=== PATIENT | female | born 1950 | race Caucasian/White ===

== ENCOUNTER → 2019-11-21 13:11 | Outpatient (CLI) | payer OTHER, SELFPAY ==
--- NOTE | 2019-11-21 | DI.MRI.S_ITS ---
PROCEDURE: MR LUMBAR SPINE WO CON INDICATIONS: Lumbago with sciatica, left side TECHNIQUE: Noncontrast sagittal T1 spin echo and T2 fast echo, sagittal STIR, axial T1 and T2 fast spin echo through the lumbar spine. In cases with scoliosis, additional coronal T2 fast spin echo may be performed. COMPARISON: [facility], MR, L-SPINE WITHOUT CONTRAST, 01/26/2016, 13:51. FINDINGS: Image quality: Excellent. Alignment and Curvature: There is normal bony alignment. Bone Marrow: Reactive endplate changes noted adjacent to the L2-L3, L3-L4, L4-L5 and L5-S1 discs. Small benign, intraosseous hemangioma noted in the S1 vertebral body. No acute vertebral body compression fractures. Spinal Cord: Conus medullaris terminates at the L1 level. Visualized cord demonstrates normal signal and size. Paraspinous Soft Tissues: No paravertebral masses. L1-L2: Loss of disc signal. Minimal, diffuse disc bulge. No central stenosis. No neural foraminal narrowing. No neural compression. L2-L3: Loss of disc signal and slight loss of disc height. Mild, diffuse disc bulge. No central stenosis. Mild bilateral neural foraminal narrowing. No neural compression. L3-L4: Loss of disc signal. Mild, diffuse disc bulge. Mild bilateral facet hypertrophy. Mild narrowing of the central canal. Mild bilateral neural foraminal narrowing. No neural compression. L4-L5: Loss of disc signal and height. Mild to moderate diffuse disc bulge. Moderate bilateral facet hypertrophy. Moderate narrowing of the central canal. Moderate bilateral neural foraminal narrowing. No neural compression. L5-S1: Loss of disc signal. Mild, diffuse disc bulge. Mild bilateral facet hypertrophy. No central stenosis. Moderate right and severe left neural foraminal narrowing with compression of the exiting left L5 nerve root. IMPRESSION: 1. Multilevel degenerative disc disease. 2. Multilevel facet arthropathy. 3. No significant central canal narrowing. 4. Severe left L5-S1 neural foraminal narrowing with compression of the exiting left L5 nerve root. Please correlate with clinical data. Dictated by: Monique Burgos MD, PhD on 11/21/2019 at 17:30 Approved by: Monique Burgos MD, PhD on 11/21/2019 at 17:53
== END ==
PROVIDERS: PCP Physician Assistant; Referring Provider Orthopaedic Surgery Orthopaedic Surgery of the Spine; Visit Provider Orthopaedic Surgery Orthopaedic Surgery of the Spine
DX: M51.16 Intervertebral disc disorders with radiculopathy, lumbar region (principal); M51.17 Intervertebral disc disorders with radiculopathy, lumbosacral region; M47.26 Other spondylosis with radiculopathy, lumbar region; M47.27 Other spondylosis with radiculopathy, lumbosacral region; M48.061 Spinal stenosis, lumbar region without neurogenic claudication; M48.07 Spinal stenosis, lumbosacral region
CPT/HCPCS: 72148

== ENCOUNTER → 2019-12-29 15:04 | Outpatient (CLI) | payer OTHER, SELFPAY ==
[2019-12-29 18:03] LABS: Thyroid Stimulating Hormone 2.38 uIU/mL (0.47-4.68)
[2019-12-30 09:14] LABS: Immunoglobulin A 313 mg/dL (87-352)
[2019-12-30 12:08] LABS: SARS CoV19 IgG Negative (Negative)
[2019-12-30 14:39] LABS: SARS-CoV19- IgM Negative (Negative)
[2019-12-30 19:38] LABS: Tissue Transglutaminase IgA <2 U/mL (0-3); Tissue Transglutaminase IgG <2 U/mL (0-5)
== END ==
PROVIDERS: PCP Physician Assistant; Referring Provider Student in an Organized Health Care Education/Training Program; Visit Provider Student in an Organized Health Care Education/Training Program
DX: R19.00 Intra-abdominal and pelvic swelling, mass and lump, unspecified site (principal); R05 Cough
CPT/HCPCS: 36415; 82784; 83516; 84443; 86769

== ENCOUNTER → 2020-02-20 13:18 | Outpatient (CLI) | payer OTHER, SELFPAY ==
[2020-02-20 14:03] LABS: COVID19 -Nasal RAPID Negative (Negative)
== END ==
PROVIDERS: PCP Physician Assistant; Visit Provider Physician Assistant
DX: Z11.59 Encounter for screening for other viral diseases (principal)
CPT/HCPCS: 87635

== ENCOUNTER 2020-02-22 13:47 | Day surgery (SDC) | payer OTHER, SELFPAY ==
--- NOTE | 2020-02-22 | PATH_ITS ---
[facility] Accession Number: [id number] . 01 Material submitted: . colon - RANDOM COLON BIOPSIES . 01 Clinical history: . SDC RULE OUT MICROSCOPIC COLITIS . 02 Diagnosis: Random Colon, Biopsies: Collagenous colitis. MRV 02/28/2020 1506 Local . 02 Electronically signed: . Braydon Cee MD, PhD, Pathologist NPI- [id number] . 01 Gross description: . RANDOM COLON BIOPSIES: Received in formalin are multiple fragment(s) of saavedra, soft tissue measuring 0.6 x 0.6 x 0.2 cm in aggregate submitted entirely in 1 cassette(s) /QBJ 02/23/2020 0438 Local . 02 Microscopic: . A trichrome stain highlights patchy irregular thickening of the subepithelial collagen plate, with few entrapped inflammatory cells and capillaries. A control stain shows appropriate reactivity. . 02 Pathologist provided ICD-10: R19.7, K52.89 . 02 CPT . 985412, [id number] Performed at: 01 [facility] [address], [place], [place] [id number] MD Martell Young MD Phone: [phone] [facility]formed at: [facility] [address] [place], [place] [id number] MD Ella Boyd MD Phone: [phone]
--- NOTE | 2020-02-22 13:54 | PM.HP.1 ---
History of Present Illness History of Present Illness Date Patient Seen: 02/22/20 Time Patient Seen: 13:54 Chief complaint: SDC Narrative: Patient is a 61-year-old female who presented for colonoscopy. She was evaluated on December 29, 2019 for diarrhea and fecal incontinence. Since that time she has continued to have persistent diarrhea. Her last colonoscopy was September 11, 2015 which was unremarkable, 10 year recheck was recommended at that time. Meds Home Medications and Allergies Home Medications Medication Instructions Recorded Confirmed Type codeine sulfate 30 mg tablet 30 mg PO Q4-6H PRN #90 tab MDD 4 11/16/17 Rx codeine sulfate 30 mg tablet 30 mg PO Q4-6H PRN #90 tab 01/07/18 Rx Allergies Allergy/AdvReac Type Severity Reaction Status Date / Time No Known Drug Allergies Allergy Verified 02/22/20 14:15 Review of Systems Review of Systems ROS: Yes All systems reviewed with the patient and are negative except as otherwise documented Exam Const General: cooperative, healthy appearing, comfortable, well developed, well groomed and No acute distress Nutritional Appearance: obese Orientation: alert, awake and oriented x3 HENMT Head: normocephalic and atraumatic Resp Effort & Inspection: normal respiratory effort and able to speak in complete sentences Auscultation: clear to auscultation bilaterally Cardio Rate: regular rate Rhythm: regular rhythm Heart Sounds: S1 normal and S2 normal GI Palpation: soft Auscultation: normal bowel sounds Assessment & Plan Assessment & Plan narrative: 1. Chronic diarrhea Colonoscopy today, further recommendations to follow
[2020-02-22] MEDS: SODIUM CHLORIDE 0.9% 1,000 ML 70 ML IV (14:14)
[2020-02-22 14:15] VITALS: BP 169/91; PULSE 67; RESP 16; TEMP 36.2; O2SAT 97; BMI 36.6
--- NOTE | 2020-02-22 14:54 | PM.OP.ENDO ---
Operative Date/Time/Diagnoses Date of procedure: 02/22/20 Time of procedure: 14:34 Procedure Notes Procedure in detail: Surgeon: Tracey Varghese DO Procedure: Colonoscopy with biopsy Preoperative diagnosis: 1. Chronic diarrhea 2. Fecal incontinence Postoperative diagnosis: 1. Normal appearing colonic mucosa, biopsied to rule out microscopic colitis 2. Sigmoid and descending colon diverticulosis 3. Grade 1 internal hemorrhoids Medications: Monitored anesthesia care Preanesthesia Assessment An H and P was performed/updated and the Px?s ASA class is 2. The procedure was discussed in detail with the patient. The potential risks and complications including infection, bleeding, missed lesions, perforation, need for surgery in case of perforation, prolonged hospital stay, and were explained. A brief question and answer period was allotted and once all questions were answered, informed consent was obtained. The patient was brought back to the procedure room and placed on standard monitoring. The patient?s vital signs were monitored continuously throughout the entire procedure. Prior to starting, a timeout was performed to confirm the patient?s identity, allergies, medications, and procedure. Procedure in detail The patient was placed in left lateral decubitus position. Prior to sedation patient underwent a rectal exam while awake due to her fecal incontinence. She was noted to have a weak squeeze and pelvic floor dysfunction. The digital rectal examination did not reveal any palpable lesions. After adequate sedation was achieved, the tip of the colonoscope was placed in the anal canal and advanced with some difficulty, manual pressure was applied to advance scope all the way to the cecum which was identified by the appendiceal orifice and the ileocecal valve. Careful examination of all mondragon of the colon was performed with irrigation of any residual stool. Second pass of the ascending colon was completed. Colon mucosa appeared unremarkable, random colon biopsies were taken to rule out microscopic colitis. Unfortunately due to a tortuous colon we were unable to intubate the terminal ileum. Sigmoid and descending colon diverticulosis were noted. Grade 1 internal hemorrhoids were noted on retroflexion. The patient tolerated the procedure well and will be brought back to the recovery area to be discharged once criteria are met. The prep was judged to be good/excellent and adequate to identify polyps less than 5 mm. The withdrawal time was 11min. The total physician intraservice time was 19min. Complications There were no complications and estimated blood loss was minimal. Recommendations: Resume previous diet Continue outPx medications Follow up pathology results Repeat colonoscopy in 10 years for screening Consider pelvic floor physical therapy Office follow up to be scheduled An emergency contact number was given to the patient for any complications related to the procedure
[2020-02-22 14:58] VITALS: BP 123/69; PULSE 64; RESP 13; TEMP 36.4; O2SAT 96
[2020-02-22 15:02] VITALS: BP 109/53; PULSE 71; RESP 14; O2SAT 97
[2020-02-22 15:06] VITALS: BP 134/64; PULSE 63; RESP 18; O2SAT 96
[2020-02-22 15:12] VITALS: BP 130/62; PULSE 61; RESP 24; O2SAT 95
[2020-02-22 15:20] VITALS: BP 139/61; PULSE 60; RESP 16; TEMP 36.2; O2SAT 98
== END 2020-02-22 15:22 | disposition home or self-care (01) ==
PROVIDERS: PCP Physician Assistant; Referring Provider Student in an Organized Health Care Education/Training Program; Visit Provider Student in an Organized Health Care Education/Training Program
PROC: 0DJD8ZZ Inspection of Lower Intestinal Tract, Via Natural or Artificial Opening Endoscopic (ICD-10-PCS; CPT 45378; principal; 2020-02-22 15:00)
DX: K52.831 Collagenous colitis (principal); R15.9 Full incontinence of feces; J44.9 Chronic obstructive pulmonary disease, unspecified; G47.33 Obstructive sleep apnea (adult) (pediatric); I10 Essential (primary) hypertension; K64.0 First degree hemorrhoids; K57.30 Diverticulosis of large intestine without perforation or abscess without bleeding
CPT/HCPCS: 45380

== ENCOUNTER → 2020-05-08 15:06 | Outpatient (CLI) | payer OTHER, SELFPAY ==
[2020-05-08 17:39] LABS: Appearance Urine UA CLEAR; Bilirubin Urine UA NEGATIVE (NEGATIVE); Color Urine UA YELLOW; Glucose Urine UA NEGATIVE (Negative); Ketones Urine UA NEGATIVE (NEGATIVE); Leukocyte Esterase Urine UA NEGATIVE (NEGATIVE); Nitrite Urine UA NEGATIVE (Negative); Occult Blood Urine UA 2+ (Negative); Protein Urine UA NEGATIVE (Negative); Specific Gravity Urine UA 1.015 (1.000-1.035)
[2020-05-08 17:40] LABS: Add Manual Diff / Slide Review NO; Basophils Absolute Auto 0 /uL (0-100); Basophils Percent Auto 0.3 % (0-2); Eosinophils Absolute Auto 100 /uL (0-450); Eosinophils Percent Auto 0.8 % (2-4); Hematocrit 38.2 % (36-46); Hemoglobin 13.5 g/dL (12.0-16.0); Lymphocytes Absolute Auto 1300 /uL (1100-4500); Lymphocytes Percent Auto 17.1 % (25-40); Mean Corpuscular HGB Conc 35.3 % (30-36); Mean Corpuscular Hemoglobin 33.4 PG (26-34); Mean Corpuscular Volume 94.5 fL (80-100); Monocytes Absolute Auto 400 /uL (0-900); Monocytes Percent Auto 4.9 % (3-14); Neutrophils Absolute Auto 5900 /uL (1500-7000); Neutrophils Percent Auto 76.9 % (50-75); Platelet Count 250 X10^3/uL (150-400); Red Blood Cell Count 4.04 X10^6/uL (4.0-5.2); Red Cell Distribution Width 13.4 % (11.6-14.8); White Blood Cell Count 7.6 X10^3/uL (4.5-11.0)
[2020-05-08 17:59] LABS: pH Urine UA 6.5 (4.5-8.0)
[2020-05-08 18:02] LABS: Bacteria Urine Occasional (0-1); Culture Indicated Urine Cult Not Indicated; RBC Urine 1-5/HPF (0-5/HPF); Squamous Epithelial Cell Urine 1-5 /HPF (0-5/HPF); Transitional Epi Cells Urine 1-5/HPF (0-5/HPF); WBC Urine 1-5/HPF (0-5/HPF)
[2020-05-08 18:17] LABS: Blood Urea Nitrogen 11 mg/dL (7-17); Calcium 9.5 mg/dL (8.4-10.2); Carbon Dioxide 35 mmol/L (22-32); Chloride 92 mmol/L (98-107); Estimated Glomerular Filt Rate > 60.0 mL/min (>60); Glucose 94 mg/dL (80-110); HEMOLYSIS < 15 (0-50); Potassium 3.9 mmol/L (3.4-5.1); Sodium 132 mmol/L (137-145)
== END ==
PROVIDERS: PCP Physician Assistant; Referring Provider Orthopaedic Surgery Orthopaedic Surgery of the Spine; Visit Provider Orthopaedic Surgery Orthopaedic Surgery of the Spine
DX: Z01.818 Encounter for other preprocedural examination (principal); Z01.812 Encounter for preprocedural laboratory examination; N39.0 Urinary tract infection, site not specified
CPT/HCPCS: 36415; 80048; 81001; 85025; 93005; 93010

== ENCOUNTER → 2020-06-04 13:16 | Outpatient (CLI) | payer OTHER, SELFPAY ==
[2020-06-04 16:50] LABS: COVID19 -Nasal RAPID Negative (Negative)
== END ==
PROVIDERS: PCP Physician Assistant; Visit Provider Physician Assistant
DX: Z01.812 Encounter for preprocedural laboratory examination (principal); Z20.822 Contact with and (suspected) exposure to COVID-19
CPT/HCPCS: 87635

== ENCOUNTER 2020-06-07 12:00 | Observation (INO) | payer OTHER, SELFPAY ==
[2020-06-06] VITALS (26 sets, daily range): BP systolic 120–171; BP diastolic 43–90; PULSE 60–84; RESP 8–18; TEMP 36.3–36.8; O2SAT 83–100; BMI 37.1
--- NOTE | 2020-06-06 | DI.RAD.S_ITS ---
PROCEDURE: XR LUMBAR SPINE 2-3V INDICATIONS: L5-S1 TLIF TECHNIQUE: 2 views of the lumbar spine were acquired. COMPARISON: None. FINDINGS: Bones: Immediate postoperative evaluation by frontal and lateral views. There has been establishment of normal alignment by placement of transverse pedicle screws and vertical fixation rods crossing L5-S1, with an interbody cage disc prosthesis at the L5-S1 disc space. Soft tissues: Overlying bowel gas pattern is normal. No suspicious soft tissue calcifications. IMPRESSION: Normal alignment established by L5-S1 posterior fusion with interbody disc cage prosthesis. Dictated by: Isiah Dailey M.D. on 06/06/2020 at 14:48 Approved by: Isiah Dailey M.D. on 06/06/2020 at 14:58
[2020-06-06] MEDS: LACTATED RINGERS 1,000 ML 100 ML IV ×2 (11:08→14:13)
--- NOTE | 2020-06-06 11:57 | PM.PREOP ---
Pre-operative Note COVID-19 COVID-19 status: Negative Result date/Date tested (Pos, Neg/Pending): 06/04/20 Interval Note History & Physical reviewed/Exam performed by Physician: Yes Changes to H&P: No
[2020-06-06] MEDS: CEFAZOLIN 2 GM/100 ML FROZ.PIGGY IV ×2 (12:45→20:39)
--- NOTE | 2020-06-06 13:19 | SUR.OPER ---
Prone on spine table, head in foam head support, padded chest and pelvic supports, gel pad at knees, lower legs supported by pillows; nipples, genitalia and toes free of pressure, arms secured on foam padded arm boards at <90 degrees abduction. Tape over blanket at thigh secured to table. Gel pads bilaterally against abdomen and outer thighs.
[2020-06-06] MEDS: BUPIVACAINE LIPOSOME 266 MG/20 ML VIAL INJ (13:26)
[2020-06-06] MEDS: BUPIVACAINE 0.5% W/ EPI (PF) 30 ML VIAL INJ (13:26)
[2020-06-06] MEDS: ACETAMINOPHEN IV 1,000 MG/100 ML VIAL 400 MG IV (13:40)
--- NOTE | 2020-06-06 15:34 | P.OP_ITS ---
Operative Date/Time/Diagnoses Date of procedure: 06/06/20 Time of procedure: 12:34 Pre-op diagnosis: 1. L5-S1 spondylolisthesis 2. L4-5, L5-S1 spinal stenosis Post-op diagnosis: same Procedure & Clinicians Procedure: 1. L5-S1 Postero-lateral and posterior interbody fusion 2. L5-S1 interbody cage placement. 3. L5-S1 decompressive laminectomy with bilateral facetecomies 4. L5-S1 Posterior non-segmental instrumentation 5. L4-5 left hemilaminectomy 6. [place] of bone marrow from iliac crest 7. Utilization of microsurgical technique and operating microscope Same procedure as scheduled: Yes Indications: Patient has been having chronic back pain and worsening lumbar radiculopathy. Patient failed multiple conservative management with worsening pain weakness and numbness in her lower extremity. Patient has been having difficulty performing activity of daily living. After discussing risks benefits of treatment options, patient elected proceed with surgery. Surgeon: Chau Altamirano Medium Cycle Salesperson: Isiah Hedrick Click Yes if Unassisted: No Anesthesia Type: General Operative Notes Closure Type: primary Specimen(s): none sent Prosthetic devices, grafts, tissues, transplants, or devices: Globus revolve screws, Rise cage Estimated Blood Loss (mL): 50 Blood products transfused: none Procedure in detail: Patient was seen in the preoperative area. Risks and benefits of the surgery was discussed with the patient. Informed consent was obtained from the patient and placed in the chart. Surgical site was marked. Patient was taken to the operative room. General anesthesia was administered. Prophylactic antibiotic was given to the patient less than 30 min before the incision was made. Patient was placed into a prone position on the Chau table. Patient's back was then prepped and draped in the sterile fashion. Time- out was performed at this time. Using AP and lateral C-arm imaging the interval between L4-5 L5-S1 was identified and marked on patient's back. A 2 inch incision 2 in from midline was made on the Left side first. The fascia was incised in line with skin incision. Globus MARS retractors was placed inside the incision and docked onto the L5 lamina. Using microsurgical technique and operating microscope, a L5 laminectomy and L5-S1 facetectomy was performed using a Kerrison rongeur. The disc space at L5-S1 was identified. And a total diskectomy was performed at L5- S1 level. The endplates were decorticated using a rasp and shaver. The total diskectomy and decortication was performed at L5-S1 level in order to to accomplish a L5-S1 fusion. The local bone from the laminectomy and facetectomy was saved for local bone grafting. After the total diskectomy and decortication was completed, Globus Trifecta bone graft material was combined with local bone that was harvested earlier. The bone grafting material was placed into the L5- S1 interbody space along with a expandable cage. The cage was expanded to its maximum height using the torque limiting screwdriver. At this time the MARS retractor was redirected over the L4 lamina. Using microsurgical technique and operating microscope, a L4 heminectomy was performed using the Kerrison rongeur. The ligamentum flavum was also resected at the side of the hemilaminectomy for further decompression of the epidural space. At this time a mirror image incision was made on the Right side. The fascia was incised in line with the skin incision. Globus MARS retractor was inserted and docked onto the L5-S1 posterolateral gutter. Using the power drill, posterior- lateral decortication was performed at L5-S1 level until bleeding cortical bone was identified. The remaining bone grafting material was placed into the L5-S1 posterior lateral gutter he order to accomplish posterolateral fusion at the L5- S1 level. Using the double C-arm technique, pedicle screws were placed into the L5 and S1 pedicles bilaterally. This was done by placing the Jamshidi needle into the pedicles, then placing the guidewires over the Jamshidi needle, and finally placing the cannulated screws over the guidewires bilaterally. After the pedicle screws were placed, 2 titanium rods was locked into the heads of the pedicle screws using locking caps and torque limiting screwdriver. After all the hardware was placed, and confirmed with AP and lateral C-arm imaging, the wound was then irrigated with sterile normal saline and packed with Ray-Rosie gauze for 3 min to accomplish hemostasis. After the gauze was removed the deep fascia was closed with #1 Vicryl suture. The subcutaneous layer was closed with 2-0 Vicryl. The skin was closed with skin hitesh. Patient tolerated the procedure well. There were no complications. Complications: none Post-operative Condition: stable Disposition: PACU Plan for aftercare: Admit to inpatient hospital
[2020-06-06] MEDS: fentaNYL 100 MCG/2 ML INJ IV ×3 (15:49→16:25)
[2020-06-06] MEDS: hydrOXYzine 50 MG/ML INJ 25 MG IM (16:04)
[2020-06-06] MEDS: OXYCODONE IR 5 MG TABLET PO (16:19)
[2020-06-06] MEDS: SODIUM CHLORIDE 0.9% 1,000 ML 100 ML IV (17:25)
[2020-06-06] MEDS: HYDROMORPHONE 0.5 MG INJ IV (17:38)
[2020-06-06] MEDS: GABAPENTIN 600 MG TABLET PO (20:35)
[2020-06-06] MEDS: LOPERAMIDE 2 MG CAPSULE 4 MG PO (20:38)
[2020-06-06] MEDS: OXYCODONE IR 5 MG TABLET 10 MG PO (20:42)
[2020-06-07 00:25] VITALS: BP 133/85; PULSE 77; RESP 18; TEMP 36.2; O2SAT 94
[2020-06-07] MEDS: OXYCODONE IR 5 MG TABLET 10 MG PO ×5 (00:29→19:29)
[2020-06-07] MEDS: ACETAMINOPHEN 325 MG TABLET 650 MG PO (00:29)
--- NOTE | 2020-06-07 01:27 | PC.NURSE ---
Dressing saturated, bedlinen underneath saturated. Changed and reinforced.
[2020-06-07] MEDS: CEFAZOLIN 2 GM/100 ML FROZ.PIGGY IV (04:05)
[2020-06-07 04:56] VITALS: BP 125/64; PULSE 72; RESP 18; TEMP 36.6; O2SAT 95
[2020-06-07] MEDS: GABAPENTIN 600 MG TABLET PO ×2 (07:49→19:29)
[2020-06-07] MEDS: DOCUSATE 100 MG CAPSULE PO ×2 (07:49→19:30)
[2020-06-07] MEDS: hydrOXYzine pamoate 25 MG CAPSULE PO ×2 (07:49→19:33)
[2020-06-07] MEDS: VALSARTAN 80 MG TABLET 160 MG PO (08:06)
[2020-06-07] MEDS: PANTOPRAZOLE 40 MG TABLET PO (08:06)
[2020-06-07] MEDS: hydroCHLOROthiazide 25 MG TABLET PO (08:06)
[2020-06-07] MEDS: buPROPion XL 150 MG TAB 450 MG PO (08:06)
[2020-06-07] MEDS: QUETIAPINE 25 MG TABLET PO (08:06)
--- NOTE | 2020-06-07 08:53 | P.PN_ITS ---
Subjective Subjective Date Patient Seen: 06/07/20 Time Patient Seen: 08:53 Interval history: POD #1 s/p L5-S1 TLIF with Dr. Altamirano. Patient has all of her pain in her low back and states she cannot get comfortable. She has been getting up to go to the bathroom. Voiding without difficulty. Taking Oxycodone and Vistaril for pain control. Exam Vital Signs (past 8 hours): - 06/07/20 04:56 Temperature 97.9 F Pulse Rate 72 Respiratory Rate 18 Blood Pressure 125/64 Pulse Oximetry 95 Oxygen Delivery Method Room Air,CPAP Oxygen Flow Rate 0 Narrative Exam Narrative: Patient lying in bed in NAD. She is alert and oriented X3. Calves are soft, compressible, and nontender bilaterally. SILT throughout BLEs except baseline neuropathy. She is able to actively dorsiflex and plantarflex. [facility] Medical History Chronic diarrhea Fecal incontinence Internal hemorrhoids Neck pain with history of cervical spinal surgery Neuropathy Poor balance Recent urinary tract infection Spinal stenosis of lumbar region Spondylolisthesis, lumbar region Tortuous colon Surgical History History of colonoscopy S/P epidural steroid injection Social History household members: none Smoking Status: Former smoker alcohol intake: current Assessment & Plan Post-op Postoperative Procedures: Procedures Operation Date: 06/06/20 12:15 Actual Procedures Side Surgeon p L4-5 left hemilaminectomy, L5-S1 TLIF with posterior instrumentation Chau Altamirano MD Patient will mobilize with PT today. Continue current pain control, encouraged tylenol use as well. Patient will likely DC home tomorrow.
[2020-06-07 09:10] VITALS: BP 104/50; PULSE 85; RESP 12; TEMP 36.3; O2SAT 91
--- NOTE | 2020-06-07 09:24 | PT.IIE ---
Current Diagnoses Obstructive sleep apnea (adult) (pediatric) (06/06/20) Unspecified asthma, uncomplicated (06/06/20) Spondylolisthesis, lumbar region (06/06/20) Spinal stenosis, lumbar region without neurogenic claudication (06/06/20) Surgery Performed Operation Date: 06/06/20 12:15 Actual Procedures p L4-5 left hemilaminectomy, L5-S1 TLIF with posterior instrumentation - Chau Altamirano MD Surgical History (Last Reviewed 06/07/20 @ 08:55 by Amanda Mejia PA-C) History of colonoscopy S/P epidural steroid injection Medical History (Last Reviewed 06/07/20 @ 08:55 by Amanda Mejia PA-C) Chronic diarrhea Fecal incontinence Internal hemorrhoids Neck pain with history of cervical spinal surgery Neuropathy Poor balance Recent urinary tract infection Spinal stenosis of lumbar region Spondylolisthesis, lumbar region Tortuous colon Physical Therapy Inpatient Evaluation/Re-Eval M1 PT/OT-IP Prior Functional Status Start: 06/07/20 11:38 Freq: NEEDED Status: Active Protocol: Document 06/07/20 09:24 AB (Rec: 06/07/20 11:50 AB [email or web address]) Medical Review Prior Functional Status Medical History Reviewed Yes Communication able to make needs known Mobility and Gait pt stated that she is independent with all mobilities and ambulation wtihout AD Social History Household Members none Living Arrangements House Number of Floors (Floors) One Floor Number of Stairs To Enter/Railing? 2 steps to enter without rails ; has L side wall to hold on to for balance Home Environment Walk in Shower Home Equipment Front Wheel Walker,Straight Cane,Hand Held Shower,Grab Bars In Shower Additional Social History Comment pt's son plans to stay with pt for ~ 1week to assist her M2 PT-IP Current Condition Start: 06/07/20 11:38 Freq: NEEDED Status: Active Protocol: Document 06/07/20 09:24 AB (Rec: 06/07/20 11:50 AB [email or web address]) Physical Therapy Current Condition Current Condition Evaluation Date 06/07/20 Treatment Diagnosis s/p L5-S1 fusion/lami; L4-5 L hemilami; difficulty in walking Onset Date 06/06/20 Precautions Lumbar Precautions Log Roll,No Twisting,Limit Bending,Lifting Restriction of 10 lbs,Gait Belt above Incisional Area M3 PT-IP Subjective Start: 06/07/20 11:38 Freq: NEEDED Status: Active Protocol: Document 06/07/20 09:24 AB (Rec: 06/07/20 11:50 AB [email or web address]) Subjective Physical Therapy Visit Type Type Initial Evaluation Visit Start Time 09:24 Visit Stop Time 10:00 Total Visit Minutes 26 Number of PRODUCTION GENERALIST Visits 0 Physical Therapy Visit Comments Patient Comments pt is agreeable to do PT Therapy Pain Assessment Pain When Pain Assessed At Rest Pain Present Pain Present Pain Reported Location back Intensity 8 Scale Used Numeric (0 - 10) Pain Management Techniques Apply Cold,Distraction, Modification of Treatment,Re- positioning,Timing of Activity with Medications M4 PT-IP Mobility and Gait Start: 06/07/20 11:38 Freq: NEEDED Status: Active Protocol: Document 06/07/20 09:24 AB (Rec: 06/07/20 11:50 AB [email or web address]) PT-Bed Mobility Assessment Rolling Type of Rolling Log Rolling Level of Assist Moderate Assistance,2 Person Assistance Supine to Sit Supine to Sit Moderate Assistance,1 Person Assistance PT-Transfer Assessment Sit to and From Stand Sit to and from Stand Minimal Assistance,1 Person Assistance,Use of Upper Extremities Equipment Transfer Assistive Device Front Wheeled Walker Orthotic/Prosthetic Devices or Brace: No Transfers Transfer Destination Chair Transfer Technique ambulated using FWW Transfer Ability Level of Assist Minimal Assistance,1 Person Assistance,Use of Upper Extremities Comments Mobility Comments educated pt on back precautions and log roll bed mobility. completed supine to sit mod A and cues. pt was able to sit on EOB SBA. completed sit to stand min A and ambulated in room using FWW ~ 30 ft. presents with antalgic gait with increase BUE use on FWW for support. has decrease BLE elevation and propulsion during ambulation. pt agreed to sit on chair. positioned on chair. call light and table placed within reach. Gait Assessment Gait Gait Assistance Required: Minimum Assistance,1 Person Assist Distance (Feet) 30 Able to Maintain Weight Bearing Status Yes During Gait Assistive Devices Assistive Device Gait Belt,Front Wheeled Walker Orthotic/Prosthetic Devices or Brace: No Gait Deviations General Gait Pattern Antalgic,Decreased Stride Length,Decreased Feet Clearance,Step-to Gait Factors Limiting Gait Function Factors Limiting Gait Function Decreased Activity Tolerance, Decreased Sensation,Decreased Strength,Limited Range of Motion,Pain,Poor Balance,Poor Safety Awareness Comments Gait Comments pls refer to mobility section for details PT-Balance Assessment Sitting Balance and Reactions Static Sitting Balance Ability Good Dynamic Sitting Balance Ability Good Standing Balance and Reactions Static Standing Balance Ability Fair Dynamic Standing Balance Ability Fair Device Used FWW M5 PT-IP Objective Assessments Start: 06/07/20 11:38 Freq: NEEDED Status: Active Protocol: Document 06/07/20 09:24 AB (Rec: 06/07/20 11:50 AB [email or web address]) Orientation Orientation/Cognition Level of Alertness Alert Orientation Name,Place,Situation Language Function Ability No Deficits Noted Memory Description Short Term Impaired Gross Range of Motion Lower Extremity ROM Assessment Within Functional Limits Strength Lower Extremity Strength Assessment Bilaterally Impaired Comments Strength Comments RLE: 4-/5 LLE: 3+/5 Sensation Assessment Sensation Light Touch Impaired Proprioception (Position) Impaired Sensation Description Numbness Comments Sensation Comments pt requires increase time to decipher light touch on BLE and having more difficulty on LLE than RLE pt stated that she has chronic neuropathy on BLE from the knees down to B feet Muscle Tone Muscle Tone WNL Yes M6 PT-IP Treatment Start: 06/07/20 11:38 Freq: NEEDED Status: Active Protocol: Document 06/07/20 09:24 AB (Rec: 06/07/20 11:50 AB [email or web address]) Physical Therapy Treatment Education Education Provided Precautions,Weight Bearing Status,Post-Op Packet,Safety M7 PT-IP Assessment and Plan Start: 06/07/20 11:38 Freq: NEEDED Status: Active Protocol: Document 06/07/20 09:24 AB (Rec: 06/07/20 11:50 AB [email or web address]) PT Summary Assessment and Plan Potential Rehabilitation Potential Good Status of Condition at Evaluation Stable Summary Impairments Pain,ROM,Strength,Balance, Coordination,Sensation, Cognition,Bed Mobility, Transfers,Gait,Activity Tolerance Assessment Summary pt requiring mod A for bed mobility and min A for transfers and ambualtion using FWW. pt plans to go home and son will stay with her to assist for ~ 1 week. will conduct caregiver training when appropriate and will complete stair climbing training prior to doing home. will continue to assess progress. Goals Bed Mobility Goal Independent Transfer Goal Independent,Front Wheeled Walker Gait Goal Independent,Front Wheel Walker Gait Distance 150 Other Goals complete ambulation using FWW 250 ft mod I complete up/down 2 steps using SPC/WICKER MOLDED CANDLES CGA Days to Meet Goals 5 Frequency of Treatment Frequency Of Treatment Twice a Day Treatment Plan Physical Therapy Treatment Plan Bed Mobility Training,Transfer Training,Gait Training, Therapeutic Exercise,Balance Retraining,Post Op Education, Discharge Planning,Hot or Cold Pack,Neuromuscular Re-ed, Coordination Retraining,Manual Therapy Precautions Lumbar Precautions Log Roll,No Twisting,Limit Bending,Lifting Restriction of 10 lbs,Gait Belt above Incisional Area Recommendations To Nursing Amount of Assist Needed 1 Person Assist Discharge Recommendations PT Discharge Recommendations Home with Assistance, Outpatient PT Transportation Needs at Discharge Private Vehicle
--- NOTE | 2020-06-07 13:26 | PT.IPTN ---
Current Diagnoses Obstructive sleep apnea (adult) (pediatric) (06/07/20) Unspecified asthma, uncomplicated (06/07/20) Spondylolisthesis, lumbar region (06/07/20) Spinal stenosis, lumbar region without neurogenic claudication (06/07/20) Surgery Performed Operation Date: 06/06/20 12:15 Actual Procedures p L4-5 left hemilaminectomy, L5-S1 TLIF with posterior instrumentation - Chau Altamirano MD Physical Therapy Treatment Note M2 PT-IP Current Condition Start: 06/07/20 11:38 Freq: NEEDED Status: Active Protocol: Document 06/07/20 09:24 AB (Rec: 06/07/20 11:50 AB [id number]) Physical Therapy Current Condition Current Condition Evaluation Date 06/07/20 Treatment Diagnosis s/p L5-S1 fusion/lami; L4-5 L hemilami; difficulty in walking Onset Date 06/06/20 Precautions Lumbar Precautions Log Roll,No Twisting,Limit Bending,Lifting Restriction of 10 lbs,Gait Belt above Incisional Area M3 PT-IP Subjective Start: 06/07/20 11:38 Freq: NEEDED Status: Active Protocol: Document 06/07/20 13:26 AB (Rec: 06/07/20 14:22 AB [email or web address]) Subjective Physical Therapy Visit Type Type Treatment Note Visit Start Time 13:26 Visit Stop Time 14:14 Total Visit Minutes 48 Number of MAGNETO REPAIRER Visits 0 Physical Therapy Visit Comments Patient Comments pt is agreeable to do PT Therapy Pain Assessment Pain Present Pain Present Pain Reported Location back Intensity 8 Scale Used Numeric (0 - 10) Pain Management Techniques Distraction,Modification of Treatment,Re-positioning, Timing of Activity with Medications M4 PT-IP Mobility and Gait Start: 06/07/20 11:38 Freq: NEEDED Status: Active Protocol: Document 06/07/20 13:26 AB (Rec: 06/07/20 14:22 AB [id number]) PT-Bed Mobility Assessment Rolling Type of Rolling Log Rolling Level of Assist Standby Assistance Supine to Sit Supine to Sit Standby Assistance Sit to Supine Sit to Supine Standby Assistance PT-Transfer Assessment Sit to and From Stand Sit to and from Stand Standby Assistance,Contact Guard Assistance,1 Person Assistance,Use of Upper Extremities Equipment Transfer Assistive Device Bed Rail,Front Wheeled Walker Orthotic/Prosthetic Devices or Brace: No Transfers Transfer Destination Bed Transfer Technique ambulated using FWW Transfer Ability Level of Assist Standby Assistance,Contact Guard Assistance,1 Person Assistance,Use of Upper Extremities Comments Mobility Comments pt sitting on chair. son in room with pt. pt completed sit to stand CGA and cued for techniques and safety. pt ambulated in room using FWW SBA to CGA 40 ft. rested on chair. agreed to do stairs. pt clarified steps getting in the house: has 2 platform steps to enter through the garage. pt ambulated towards the step using FWW SBA to CGA. completed up/down platform step x 2 sets using FWW SBA to CGA. educated pt's son on how to assist pt and was able to complete on 2nd set. pt ambulated back to bed using FWW SBA. bed mobility log roll training x 3 sets requiring SBA. required cues with supine to sit as pt to move LE in supine and does not log roll to the side first. able to complete with less cues on 3rd set. pt requested to stay in bed. positioned in bed. call light and table placed within reach. Gait Assessment Gait Gait Assistance Required: Standby Assistance,Contact Guard Assist,1 Person Assist Distance (Feet) 40 Able to Maintain Weight Bearing Status Yes During Gait Assistive Devices Assistive Device Gait Belt,Front Wheeled Walker Orthotic/Prosthetic Devices or Brace: No Gait Deviations General Gait Pattern Decreased Stride Length, Decreased Feet Clearance Factors Limiting Gait Function Factors Limiting Gait Function Decreased Activity Tolerance, Decreased Strength,Limited Range of Motion,Pain,Poor Balance,Poor Safety Awareness Stair Climbing Assessment Evaluation Level of Assist On Stairs Standby Assistance,Contact Guard Assistance Devices Stair Climbing Assistive Devices Front Wheel Walker Technique/Endurance Stair Climbing Direction Ascend and Descend Stair Climbing Technique Step to Step Number of Steps Climbed 1 Stair Climbing Set # Repetitions (reps) 2 M5 PT-IP Objective Assessments Start: 06/07/20 11:38 Freq: NEEDED Status: Active Protocol: Document 06/07/20 09:24 AB (Rec: 06/07/20 11:50 AB [id number]) Orientation Orientation/Cognition Level of Alertness Alert Orientation Name,Place,Situation Language Function Ability No Deficits Noted Memory Description Short Term Impaired Gross Range of Motion Lower Extremity ROM Assessment Within Functional Limits Strength Lower Extremity Strength Assessment Bilaterally Impaired Comments Strength Comments RLE: 4-/5 LLE: 3+/5 Sensation Assessment Sensation Light Touch Impaired Proprioception (Position) Impaired Sensation Description Numbness Comments Sensation Comments pt requires increase time to decipher light touch on BLE and having more difficulty on LLE than RLE pt stated that she has chronic neuropathy on BLE from the knees down to B feet Muscle Tone Muscle Tone WNL Yes M6 PT-IP Treatment Start: 06/07/20 11:38 Freq: NEEDED Status: Active Protocol: Document 06/07/20 13:26 AB (Rec: 06/07/20 14:22 AB [email or web address]) Physical Therapy Treatment Education Education Provided Precautions,Safety M7 PT-IP Assessment and Plan Start: 06/07/20 11:38 Freq: NEEDED Status: Active Protocol: Document 06/07/20 13:26 AB (Rec: 06/07/20 14:22 AB [email or web address]) PT Summary Assessment and Plan Potential Rehabilitation Potential Good Summary Impairments Pain,ROM,Strength,Balance, Coordination,Sensation,Tone, Cognition,Bed Mobility, Transfers,Gait,Activity Tolerance Progress Towards Goals Slow Progress due to Pain Assessment Summary pt requiring SBA to CGA with mobility using FWW and pt plans to go home with son to assist her for ~ 1 week. pt may go home when medically stable. Goals Bed Mobility Goal Independent Transfer Goal Independent,Front Wheeled Walker Gait Goal Independent,Front Wheel Walker Gait Distance 150 Other Goals complete ambulation using FWW 250 ft mod I up/down 2 platform steps using FWW mod I Days to Meet Goals 5 Frequency of Treatment Frequency Of Treatment Twice a Day Treatment Plan Physical Therapy Treatment Plan Bed Mobility Training,Transfer Training,Gait Training, Therapeutic Exercise,Balance Retraining,Post Op Education, Discharge Planning,Hot or Cold Pack,Neuromuscular Re-ed, Coordination Retraining,Manual Therapy Precautions Lumbar Precautions Log Roll,No Twisting,Limit Bending,Lifting Restriction of 10 lbs,Gait Belt above Incisional Area Recommendations To Nursing Amount of Assist Needed 1 Person Assist Discharge Recommendations PT Discharge Recommendations Home with Assistance, Outpatient PT Transportation Needs at Discharge Private Vehicle
--- NOTE | 2020-06-07 13:26 | OT.IP.EVAL ---
Current Diagnoses Obstructive sleep apnea (adult) (pediatric) (06/07/20) Unspecified asthma, uncomplicated (06/07/20) Spondylolisthesis, lumbar region (06/07/20) Spinal stenosis, lumbar region without neurogenic claudication (06/07/20) Surgery Performed Operation Date: 06/06/20 12:15 Actual Procedures p L4-5 left hemilaminectomy, L5-S1 TLIF with posterior instrumentation - Chau Altamirano MD Past Medical History (Last Reviewed 06/07/20 @ 08:55 by Amanda Mejia PA-C) Chronic diarrhea Fecal incontinence Internal hemorrhoids Neck pain with history of cervical spinal surgery Neuropathy Poor balance Recent urinary tract infection Spinal stenosis of lumbar region Spondylolisthesis, lumbar region Tortuous colon Surgical History (Last Reviewed 06/07/20 @ 08:55 by Amanda Mejia PA-C) History of colonoscopy S/P epidural steroid injection Occupational Therapy Inpatient Evaluation/Re-Eval M1 PT/OT-IP Prior Functional Status Start: 06/07/20 15:24 Freq: NEEDED Status: Active Protocol: Document 06/07/20 13:00 [facility] (Rec: 06/07/20 15:46 [facility] [id number]) Medical Review Prior Functional Status Medical History Reviewed Yes Communication able to make needs known Mobility and Gait pt stated that she is independent with all mobilities and ambulation without AD Activities of Daily Living and IADL's Pt states was completely independent with all ADl ,IADL , meds, money management, but only able to stand for 3 minutes at a time. Social History Household Members none Living Arrangements House Number of Floors (Floors) One Floor Number of Stairs To Enter/Railing? 2 steps to enter without rails ; has L side wall to hold on to for balance. Pt states has 2 platform steps from the garage. Home Environment Walk in Shower Home Equipment Front Wheel Walker,Straight Cane,Hand Held Shower,Grab Bars In Shower Additional Social History Comment Pt's son plans to stay with pt for ~ 1week to assist her. Pt 's son states pt has a high bed and may need a step to be able to get into the bed. In addition , agree best to have higher car if leaving tomorrow . M2 OT-IP Current Condition Start: 06/07/20 15:24 Freq: Status: Active Protocol: Document 06/07/20 13:00 [facility] (Rec: 06/07/20 15:46 [facility] [id number]) Occupational Therapy Current Condition Current Condition Evaluation Date 06/07/20 Treatment Diagnosis Spinal stenosis, s/p L5-S1 TLIF, L4-5 left hemiarthroplasty Diagnosis Onset Date 06/06/20 Post Operative Precautions Lumbar Precautions Log Roll,No Twisting,Limit Bending,Lifting Restriction of 10 lbs,Gait Belt above Incisional Area M3 OT- IP Subjective and Pain Start: 06/07/20 15:24 Freq: Status: Active Protocol: Document 06/07/20 13:00 [facility] (Rec: 06/07/20 15:46 [facility] [id number]) OT- Subjective Occupational Therapy Visit Type Type Initial Evaluation Visit Start Time 10:48 Visit Stop Time 13:26 Total Visit Minutes 38 Notes Pt seen for split treatment as wanting to rest and get up after lunch, [id number] and [id number]. Occupational Therapy Visit Comments Patient Comments Pt's son present for caregiver training. Patient/Caregiver Goals TO go home. OT Pain Assessment Pain When Pain Assessed During Mobility Pain Present Pain Present Pain Reported Location back Intensity 7 Scale Used Numeric (0 - 10) M4 OT- IP ADL's Start: 06/07/20 15:24 Freq: Status: Active Protocol: Document 06/07/20 13:00 [facility] (Rec: 06/07/20 15:46 [facility] [id number]) OT [id number] Comments OT Self-Feeding Comments NOt at meal time. OT ADL-Grooming General Evaluation Grooming Ability Standby Assistance Areas Needing Assistance Retrieving/Set-up of Grooming Items OT ADL-Oral Care General Eval Oral Care Ability Standby Assistance Comments Oral Care Comments vc to spit into a cup versus hinge at her hips to spit into the sink. VC to keep the FWW in front of her. OT ADL-Dressing General Eval Lower Body Dressing Ability Moderate Assistance Comments OT Dressing Comments Assist to get the left sock on . Pt states does not want to use sock aid and that she usually does not wears socks and if needing to go out, some one will assist her. OT ADL-Toileting General Evaluation Toileting Ability Moderate Assistance Areas Needing Assistance Perform Perineal Hygiene Comments OT Toileting Comments Pt able to wipe appriopriately from the front , but not able to follow back precautions to wipe if having a bowel movement. Pt not wanting her son to assist her and son states to look into getting a bidet and/or toilet paper aid. OT ADL-Bathing Comments OT Bathing Comments Pt states to shower tomorrow. Pt would benefit from a shower chair and long handled brush. M5 OT- IP IADL's Start: 06/07/20 15:24 Freq: Status: Active Protocol: Document 06/07/20 13:00 [facility] (Rec: 06/07/20 15:46 [facility] [id number]) OT-Instrumental Activities of Daily Living Home Safety Awareness Awareness of Need for Assistance at Home Good Awareness Home Safety Comments Pt a little groggy from pain medications and would benefit from her son to assist with her needs. In addition to help make sure the dogs shi not get in the way. M6 OT- IP Functional Cognition Start: 06/07/20 15:24 Freq: Status: Active Protocol: Document 06/07/20 13:00 [facility] (Rec: 06/07/20 15:46 [facility] [id number]) Cognitive Factors Limiting Selfcare Function Cognitive Ability Level of Alertness Alert Patient Orientation Name,Place,Situation Attention Span Ability Capable of Focused Attention, Capable of Sustained Attention Ability to Follow Commands Able to Follow One Step Commands with Increased Time, Able to Follow One Step Commands with Repetition Safety Awareness Decreased Recall of Precautions,Decreased Ability to Apply Precautions, Underestimates Need for Assistance Cognitive Comments Cognitive Assessment Comments VC to recall and follow back precautions. Pt needing repeat cues for log rolling initially. OT- Vision and Hearing OT- Hearing Assessment OT- Hearing Assessment WFL M7 OT- IP Mobility and Balance Start: 06/07/20 15:24 Freq: Status: Active Protocol: Document 06/07/20 13:00 [facility] (Rec: 06/07/20 15:46 [facility] [id number]) OT- Bed Mobility Assessment Rolling Type of Rolling Roll to Right Level of Assistance Standby Assistance Supine to Sit Supine to Sit Assist Standby Assistance Sit to Supine Sit to Supine Assist Standby Assistance OT-Transfer Assessment Sit to and From Stand Sit to and from Stand Standby Assistance,Contact Guard Assistance Transfers Transfer Ability Standby Assistance,Contact Guard Assistance Technique Transfer Destination Bed,Chair,Toilet Transfer Technique Stand Step Pivot Devices Transfer Assistive Devices Gait Belt,Front Wheeled Walker Comments Mobility Comments SBA for bed mobility with cues and SBA/CGA with FWW, vc to keep the FWW in front of her at all times, at times the FWW gets too far away. OT- Balance Assessment Sitting Balance and Reactions Static Sitting Balance Ability Normal Dynamic Sitting Balance Ability Normal Standing Balance and Reactions Static Standing Balance Ability Good Dynamic Standing Balance Ability Fair M8 OT- IP Objective Assessments Start: 06/07/20 15:24 Freq: Status: Active Protocol: Document 06/07/20 13:00 [facility] (Rec: 06/07/20 15:46 [facility] [id number]) OT Gross Range of Motion Upper Extremity Range of Motion Assessment Within Functional Limits OT Strength Upper Extremity Strength Assessment Within Functional Limits OT-Muscle Tone Assessment Muscle Tone WNL Yes M9 OT- IP Assessment and Plan Start: 06/07/20 15:24 Freq: Status: Active Protocol: Document 06/07/20 13:00 [facility] (Rec: 06/07/20 15:46 [facility] [id number]) OT Summary Assessment and Plan Potential Rehabilitation Potential Good Analytic Complexity at Evaluation Low Summary OT Impairments Pain,Balance,Functional Cognition,Functional Mobility, Dressing,Toileting,Bathing, Toilet Transfers,Shower Transfers,Activity Tolerance Progress Towards Goals Progressing Toward Goals Assessment Summary Pt low complexity and main barriers are steps, high bed at home, and not able to do hygiene needs at this time. Pt has a supportive son to be staying with her to assist. Pt 's son states to look into getting a bidet. Goals Grooming Goal Independent Dressing Goal Independent Toileting Goal Independent Bathing Goal Independent Toilet Transfer Goal Independent Shower Transfer Goal Independent Patient/Caregiver Education Goal Caregiver Independent Assisting Patient Days to Meet Goals 2 Frequency of Treatment Frequency Of Treatment Once a Day Treatment Plan OT Treatment Plan ADL Training,Functional Cognition Training,Functional Mobility,Patient/Family Education,Discharge Planning Other Treatment Recommendations and Next Shower Treatment Focus Discharge Recommendations OT Discharge Recommendations Home with Assistance Home Equipment Needs shower chair Transportation Needs at Discharge Private Vehicle
--- NOTE | 2020-06-07 14:20 | CM.IDA ---
Initial DCP Assessment Note Pt is a 69 yo female, resident of [place] ([facility] now POD#1 from spinal surgery w/ Dr Altamirano PCP: Rachna Mccoy Payer: Heri MCDONNELL Reviewed chart, pt discussed in multidisciplinary rounds this morning. Therapy has cleared pt for return home w/family to assist and pt has planned for home, met w/patient this afternoon, she was sleepy but A+O- states son will stay w/her for at least a week. No needs expected from DC planning team although will remain available in case this changes today. CECILIA Hannah Discharge Planning/Care Management CM Discharge Assessment Start: 06/07/20 14:15 Freq: Status: Active Protocol: Document 06/07/20 14:16 DAKSHA (Rec: 06/07/20 14:20 [facility]AK[facility] [id number]) Discharge Planning Assessment Assigned Head Of [employer] CECILIA Turner DPOA/Assigned Designee Name radha Freed Contact Information [phone] Advance Directives? No History Provided By Patient Prior Living Arrangements House Household Members none Type of transporation used prior to Drives own vehicle admit Independent with ADL's Yes Is patient alert and oriented? Yes Patient/Family Preference OP PT Therapy Barriers to Discharge No Discharge Plan Home Transportation Arrangement Family Referrals Initiated None needed Whiteboard Updated in Patient Room with Yes name and ext. # of Head Of [employer]
[2020-06-07 15:50] VITALS: BP 142/72; PULSE 80; RESP 16; TEMP 36.9
[2020-06-07] MEDS: MAGNESIUM HYDROXIDE 30 ML UDC PO (19:29)
[2020-06-07] MEDS: SENNOSIDES 8.6 MG TABLET 17.2 MG PO (19:30)
[2020-06-07 19:36] VITALS: BP 163/64; PULSE 82; RESP 16; TEMP 37.2; O2SAT 96
[2020-06-08] MEDS: hydrOXYzine pamoate 25 MG CAPSULE PO ×3 (00:26→08:25)
[2020-06-08] MEDS: OXYCODONE IR 5 MG TABLET 10 MG PO ×4 (00:26→11:07)
[2020-06-08 00:38] VITALS: BP 155/80; PULSE 86; RESP 20; TEMP 35.9; O2SAT 95
[2020-06-08 04:48] VITALS: BP 153/90; PULSE 87; RESP 20; TEMP 36.8; O2SAT 93
--- NOTE | 2020-06-08 07:42 | PC.NURSE ---
Day shift: Dressing to back changed to Coversite per CLARISSE Hedrick. Op-site inspected by PA at this time ([id number]).
--- NOTE | 2020-06-08 07:51 | PM.DS.1 ---
History of Present Illness History of Present Illness Date Patient Seen: 06/08/20 Time Patient Seen: 07:51 Chief complaint: OPB Narrative: Please refer to HPI completed on February 20, 2020 and submitted to [facility] chart February 22, 2020. Discharge Providers Provider Date of admission: 06/07/20 12:00 Discharge Date: 06/08/20 Primary care physician: Rachna Mccoy PA-C Consults: 06/05/20 08:34 Consult to Respiratory Therapy Evaluate & Treat Comment: CPAP Physician Instructions: Evaluate and treat 06/05/20 15:17 Consult to Respiratory Therapy Evaluate & Treat Comment: Will bring CPAP Physician Instructions: Evaluate and treat 06/06/20 17:13 Consult to Occupational Therapy Evaluate & Treat Comment: Physician Instructions: Evaluate and treat Consult to Physical Therapy Evaluate & Treat Comment: Physician Instructions: Evaluate and Treat Discharge provider: Isiah Hedrick PA-C Summary Hospital Course Discharge Diagnosis: 1. L5-S1 spondylolisthesis 2. L4-5, L5-S1 spinal stenosis 3. S/P L5-S1 Postero-lateral and posterior interbody fusion, L5-S1 interbody cage placement, L5-S1 decompressive laminectomy with bilateral facetecomies, L5-S1 Posterior non-segmental instrumentation, L4-5 left hemilaminectomy, [place] of bone marrow from iliac crest & Utilization of microsurgical technique and operating microscope Hospital Course: 69-year-old female presented to [facility] Surgical Department with the above listed diagnosis undergoing the above listed surgical procedure without complication or difficulty then admitted to [facility] floor for postoperative rehabilitation without significant issue the patient convalesced appropriately with pain that eventually was under control utilizing oral medications and physical therapy/occupational therapy clearance for disposition home on postoperative day 2. At the time of discharge the patient was able to void without difficulty and ambulate with front wheel walker and 1st assist. Overall she was improved from preoperative related complaints. She denied any intractable pain, weakness, numbness and or paresthesias including bowel or bladder dysfunction, chest pain, shortness of breath, nausea, vomiting fever or chills. Bilateral lower extremity strength and neurovascular function was grossly normal despite mild right anterior thigh paresthesias with wound that was clean dry and intact. The patient verbalized understanding postoperative care instructions and follow-up protocols. Status at Discharge Cognitive/behavioral status at discharge: oriented Functional status at discharge: uses cane/walker Overall status at discharge: patient is progressing back to baseline Exam Vital Signs (past 8 hours): - 06/08/20 00:38 06/08/20 04:48 Temperature 96.6 F L 98.3 F Pulse Rate 86 87 Respiratory Rate 20 20 Blood Pressure 155/80 H 153/90 H Pulse Oximetry 95 93 Oxygen Delivery Method Room Air,CPAP Oxygen Flow Rate 0 Narrative Exam Narrative: no apparent distress, alert and oriented x3, regular heart rate, normal respiratory effort, wound was clean dry and intact, bilateral lower extremity strength and neurovascular function was grossly intact except for mild anterior lateral right thigh decreased sensation compared to contralateral side, her bilateral lower calves were soft, compressible nontender. COUNT INCLUDES THE [facility] Medical History Chronic diarrhea Fecal incontinence Internal hemorrhoids Neck pain with history of cervical spinal surgery Neuropathy Poor balance Recent urinary tract infection Spinal stenosis of lumbar region Spondylolisthesis, lumbar region Tortuous colon Surgical History History of colonoscopy S/P epidural steroid injection Social History household members: none Smoking Status: Former smoker alcohol intake: current Discharge Assessment & Plan Assessment and Plan Assessment: 1. L5-S1 spondylolisthesis 2. L4-5, L5-S1 spinal stenosis 3. S/P L5-S1 Postero-lateral and posterior interbody fusion, L5-S1 interbody cage placement, L5-S1 decompressive laminectomy with bilateral facetecomies, L5-S1 Posterior non-segmental instrumentation, L4-5 left hemilaminectomy, [place] of bone marrow from iliac crest & Utilization of microsurgical technique and operating microscope Plan of Treatment: 1. Change dressing before discharge 2. Stool softeners 3. Pain management 4 Discharge this a.m. 5. Postoperative lumbar fusion care protocols apply 6. Follow-up with Dr. Ryan in approxiamately 2 weeks or earlier as needed. Discharge Plan Discharge Plan Patient Disposition: Home Discharge orders & Medications Prescriptions: New acetaminophen 325 mg Tablet 650 mg PO Q4HR PRN (Reason: pain) Qty: 30 RF: 0 docusate sodium [DOK] 100 mg Capsule 100 mg PO BID Qty: 30 RF: 0 hydroxyzine pamoate 25 mg Capsule 25 mg PO Q6-8H PRN (Reason: Nausea And Vomiting) Qty: 30 RF: 1 oxycodone 5 mg capsule 5 mg PO Q4-6H PRN (Reason: pain) Qty: 60 RF: 0 Continued gabapentin 600 mg tablet 600 mg PO BID RF: 0 pantoprazole 40 mg tablet,delayed release (DR/EC) 40 mg PO DAILY RF: 0 hydrochlorothiazide 25 mg tablet 25 mg PO DAILY RF: 0 bupropion HCl 300 mg tablet extended release 24 hr 300 mg PO DAILY RF: 0 bupropion HCl 150 mg tablet extended release 24 hr 150 mg PO DAILY RF: 0 quetiapine 25 mg tablet 25 mg PO DAILY RF: 0 zolpidem 5 mg Tablet 5 mg PO BEDTIME PRN (Reason: Insomnia) RF: 0 valsartan 160 mg tablet 160 mg PO DAILY RF: 0 budesonide 3 mg Capsule,Delayed,Extend.Release 9 mg PO PRN PRN (Reason: Anxiety) RF: 0 loperamide 2 mg Capsule 4 mg PO QID RF: 0 Follow up/Referrals: Chau Altamirano MD [Physician] - Rachna Mccoy PA-C [Primary Care Provider] - Diet/Activity/Treatments Activity: No excessive bending, lifting, or twisting. Skin/Wound/Dressing Care Report to your healthcare provider any signs of infection, such as:: chills, fever, increased pain and unusual drainage Dressing: leave in place until appointment. Call if saturated. Visit Report/Discharge Packet Instructions: How to Prevent Falls, DI for Prescription Opioid Use, Stool Softeners, Oxycodone, Hydroxyzine, DI for Transforaminal Lumbar Interbody Fusion Stand Alone Forms: Surgery Discharge Discharge Data Primary Care Provider: Rachna Mccoy Attending Provider: Chau Altamirano
[2020-06-08] MEDS: hydroCHLOROthiazide 25 MG TABLET PO (08:22)
[2020-06-08] MEDS: GABAPENTIN 600 MG TABLET PO (08:22)
[2020-06-08] MEDS: DOCUSATE 100 MG CAPSULE PO (08:22)
[2020-06-08] MEDS: buPROPion XL 150 MG TAB 450 MG PO (08:22)
[2020-06-08] MEDS: PANTOPRAZOLE 40 MG TABLET PO (08:23)
[2020-06-08] MEDS: VALSARTAN 80 MG TABLET 160 MG PO (08:24)
[2020-06-08] MEDS: QUETIAPINE 25 MG TABLET PO (08:24)
[2020-06-08] MEDS: MAGNESIUM HYDROXIDE 30 ML UDC PO (08:25)
[2020-06-08 08:32] VITALS: BP 152/71; PULSE 89; RESP 16; TEMP 36.2; O2SAT 92
--- NOTE | 2020-06-08 09:10 | PT.IPTN ---
Current Diagnoses Obstructive sleep apnea (adult) (pediatric) (06/07/20) Unspecified asthma, uncomplicated (06/07/20) Spondylolisthesis, lumbar region (06/07/20) Spinal stenosis, lumbar region without neurogenic claudication (06/07/20) Surgery Performed Operation Date: 06/06/20 12:15 Actual Procedures p L4-5 left hemilaminectomy, L5-S1 TLIF with posterior instrumentation - Chau Altamirano MD Physical Therapy Treatment Note M2 PT-IP Current Condition Start: 06/07/20 11:38 Freq: NEEDED Status: Active Protocol: Document 06/07/20 09:24 AB (Rec: 06/07/20 11:50 AB [email or web address]) Physical Therapy Current Condition Current Condition Evaluation Date 06/07/20 Treatment Diagnosis s/p L5-S1 fusion/lami; L4-5 L hemilami; difficulty in walking Onset Date 06/06/20 Precautions Lumbar Precautions Log Roll,No Twisting,Limit Bending,Lifting Restriction of 10 lbs,Gait Belt above Incisional Area M3 PT-IP Subjective Start: 06/07/20 11:38 Freq: NEEDED Status: Active Protocol: Document 06/08/20 09:10 AB (Rec: 06/08/20 10:26 AB [id number]) Subjective Physical Therapy Visit Type Type Treatment Note Visit Start Time 09:10 Visit Stop Time 09:30 Total Visit Minutes 20 Number of MOTOR EQUIPMENT LIEUT[employer]NT Visits 0 Physical Therapy Visit Comments Patient Comments pt is sleepy but agreeable to do PT. Therapy Pain Assessment Pain When Pain Assessed At Rest Pain Present Pain Present Pain Reported Location back Intensity 8 Scale Used Numeric (0 - 10) Pain Management Techniques Distraction,Modification of Treatment,Re-positioning, Timing of Activity with Medications M4 PT-IP Mobility and Gait Start: 06/07/20 11:38 Freq: NEEDED Status: Active Protocol: Document 06/08/20 09:10 AB (Rec: 06/08/20 10:26 AB [id number]) PT-Bed Mobility Assessment Rolling Type of Rolling Log Rolling Level of Assist Standby Assistance Supine to Sit Supine to Sit Standby Assistance Sit to Supine Sit to Supine Standby Assistance PT-Transfer Assessment Sit to and From Stand Sit to and from Stand Standby Assistance Equipment Transfer Assistive Device Gait Belt Orthotic/Prosthetic Devices or Brace: No Transfers Transfer Destination Chair Transfer Technique ambulated using FWW Transfer Ability Level of Assist Standby Assistance Comments Mobility Comments completed supine to sit SBA and cues for log roll. pt continues to move LE off the bed first before side rolling and cued for technique for log roll. pt completed sit to stand SBA and ambulated ~ 75 ft using FWW SBA. pt refused stair climbing and stated that she is comfortable with doing stairs already. stair training was conducted yesterday. pt ambulated back to room. Bed mobility training conducted and was able to complete log roll supine<>sit SBA. agreed to sit up on chair and transferred using FWW SBA. positioned on chair. call light and table placed within reach. left pt with son in room. Gait Assessment Gait Gait Assistance Required: Standby Assistance Distance (Feet) 75 Able to Maintain Weight Bearing Status Yes During Gait Assistive Devices Assistive Device Gait Belt,Front Wheeled Walker Orthotic/Prosthetic Devices or Brace: No Gait Deviations General Gait Pattern Antalgic,Decreased Stride Length,Decreased Feet Clearance,Step-to Gait Factors Limiting Gait Function Factors Limiting Gait Function Decreased Activity Tolerance, Decreased Strength,Limited Range of Motion,Pain,Poor Balance,Poor Safety Awareness M5 PT-IP Objective Assessments Start: 06/07/20 11:38 Freq: NEEDED Status: Active Protocol: Document 06/07/20 09:24 AB (Rec: 06/07/20 11:50 AB [id number]) Orientation Orientation/Cognition Level of Alertness Alert Orientation Name,Place,Situation Language Function Ability No Deficits Noted Memory Description Short Term Impaired Gross Range of Motion Lower Extremity ROM Assessment Within Functional Limits Strength Lower Extremity Strength Assessment Bilaterally Impaired Comments Strength Comments RLE: 4-/5 LLE: 3+/5 Sensation Assessment Sensation Light Touch Impaired Proprioception (Position) Impaired Sensation Description Numbness Comments Sensation Comments pt requires increase time to decipher light touch on BLE and having more difficulty on LLE than RLE pt stated that she has chronic neuropathy on BLE from the knees down to B feet Muscle Tone Muscle Tone WNL Yes M6 PT-IP Treatment Start: 06/07/20 11:38 Freq: NEEDED Status: Active Protocol: Document 06/08/20 09:10 AB (Rec: 06/08/20 10:26 AB [id number]) Physical Therapy Treatment Education Education Provided Precautions,Safety M7 PT-IP Assessment and Plan Start: 06/07/20 11:38 Freq: NEEDED Status: Active Protocol: Document 06/08/20 09:10 AB (Rec: 06/08/20 10:26 AB [id number]) PT Summary Assessment and Plan Potential Rehabilitation Potential Good Summary Impairments Pain,ROM,Strength,Balance, Coordination,Sensation,Tone, Cognition,Bed Mobility, Transfers,Gait,Activity Tolerance Progress Towards Goals Progressing Toward Goals Assessment Summary pt requiring SBA with mobility with cues and plans to go home later today and son will be with pt to assist her at home. pt may go home when medically stable. Goals Bed Mobility Goal Independent Transfer Goal Independent,Front Wheeled Walker Gait Goal Independent,Front Wheel Walker Gait Distance 150 Other Goals complete ambulation using FWW 250 ft mod I up/down 2 platform steps using FWW mod I Days to Meet Goals 5 Frequency of Treatment Frequency Of Treatment Twice a Day Treatment Plan Physical Therapy Treatment Plan Bed Mobility Training,Transfer Training,Gait Training, Therapeutic Exercise,Balance Retraining,Post Op Education, Discharge Planning,Hot or Cold Pack,Neuromuscular Re-ed, Coordination Retraining,Manual Therapy Precautions Lumbar Precautions Log Roll,No Twisting,Limit Bending,Lifting Restriction of 10 lbs,Gait Belt above Incisional Area Recommendations To Nursing Amount of Assist Needed 1 Person Assist Discharge Recommendations PT Discharge Recommendations Home with Assistance, Outpatient PT Transportation Needs at Discharge Private Vehicle
--- NOTE | 2020-06-08 09:59 | OT.IP.TRT ---
Current Diagnoses Obstructive sleep apnea (adult) (pediatric) (06/07/20) Unspecified asthma, uncomplicated (06/07/20) Spondylolisthesis, lumbar region (06/07/20) Spinal stenosis, lumbar region without neurogenic claudication (06/07/20) Surgery Performed Operation Date: 06/06/20 12:15 Actual Procedures p L4-5 left hemilaminectomy, L5-S1 TLIF with posterior instrumentation - Chau Altamirano MD Occupational Therapy Treatment Note M2 OT-IP Current Condition Start: 06/07/20 15:24 Freq: Status: Active Protocol: Document 06/07/20 13:00 [facility] (Rec: 06/07/20 15:46 [facility] [id number]) Occupational Therapy Current Condition Current Condition Evaluation Date 06/07/20 Treatment Diagnosis Spinal stenosis, s/p L5-S1 TLIF, L4-5 left hemiarthroplasty Diagnosis Onset Date 06/06/20 Post Operative Precautions Lumbar Precautions Log Roll,No Twisting,Limit Bending,Lifting Restriction of 10 lbs,Gait Belt above Incisional Area M3 OT- IP Subjective and Pain Start: 06/07/20 15:24 Freq: Status: Active Protocol: Document 06/08/20 11:39 [facility] (Rec: 06/08/20 11:44 [facility] [id number]) OT- Subjective Occupational Therapy Visit Type Type Progress Note Visit Start Time 09:33 Visit Stop Time 09:59 Total Visit Minutes 26 OT Pain Assessment Pain When Pain Assessed At Rest Pain Present Pain Present Pain Reported Location back Intensity 7 Scale Used Numeric (0 - 10) Management Techniques Distraction,Modification of Treatment,Re-positioning, Timing of Activity with Medications M4 OT- IP ADL's Start: 06/07/20 15:24 Freq: Status: Active Protocol: Document 06/08/20 11:39 [facility]GR (Rec: 06/08/20 11:44 [facility] [id number]) OT [id number] Comments OT Self-Feeding Comments Not meal time OT ADL-Grooming Comments OT Grooming Comments Not performed OT ADL-Oral Care Comments Oral Care Comments Not performed OT ADL-Dressing General Eval Upper Body Dressing Ability Standby Assistance Lower Body Dressing Ability Moderate Assistance Areas Needing Assistance Underpants/Brief,Socks Comments OT Dressing Comments Pt is able to don sock to the RLE but needs assist with LLE. Pt needed assist threading underwear. Pt declined LB dressing training. OT ADL-Toileting Comments OT Toileting Comments Not performed OT ADL-Bathing Bathing Type Bathing Type Shower General Evaluation Bathing Ability Standby Assistance Devices Bathing Equipment Hand Held Shower Sprayer, Shower Chair with Arms Comments OT Bathing Comments pt was able to perform bathing seated in shower chair in shower with SBA and set up. M5 OT- IP IADL's Start: 06/07/20 15:24 Freq: Status: Active Protocol: Document 06/07/20 13:00 [facility] (Rec: 06/07/20 15:46 [facility] [id number]) OT-Instrumental Activities of Daily Living Home Safety Awareness Awareness of Need for Assistance at Home Good Awareness Home Safety Comments Pt a little groogy from pain medications and would benefit form her son to assist with her needs. In addition to help make sure the dogs shi not get in the way. M6 OT- IP Functional Cognition Start: 06/07/20 15:24 Freq: Status: Active Protocol: Document 06/07/20 13:00 [facility] (Rec: 06/07/20 15:46 [facility] [id number]) Cognitive Factors Limiting Selfcare Function Cognitive Ability Level of Alertness Alert Patient Orientation Name,Place,Situation Attention Span Ability Capable of Focused Attention, Capable of Sustained Attention Ability to Follow Commands Able to Follow One Step Commands with Increased Time, Able to Follow One Step Commands with Repetition Safety Awareness Decreased Recall of Precautions,Decreased Ability to Apply Precautions, Underestimates Need for Assistance Cognitive Comments Cognitive Assessment Comments VC to recall and follow back precautions. Pt needing repeat cues for log rolling initially. OT- Vision and Hearing OT- Hearing Assessment OT- Hearing Assessment WFL M7 OT- IP Mobility and Balance Start: 06/07/20 15:24 Freq: Status: Active Protocol: Document 06/08/20 11:39 [facility] (Rec: 06/08/20 11:44 [facility] [id number]) OT-Transfer Assessment Sit to and From Stand Sit to and from Stand Contact Guard Assistance, Minimal Assistance Transfers Transfer Ability Contact Guard Assistance, Minimal Assistance Technique Transfer Destination Bed,Chair Transfer Technique Stand Step Pivot Devices Transfer Assistive Devices Gait Belt,Front Wheeled Walker Comments Mobility Comments Pt needs CGA to min a for mobiltiy. Pt appears very sleepy and needing VC for hand placement. OT- Balance Assessment Sitting Balance and Reactions Static Sitting Balance Ability Good Dynamic Sitting Balance Ability Fair M8 OT- IP Objective Assessments Start: 06/07/20 15:24 Freq: Status: Active Protocol: Document 06/07/20 13:00 [facility] (Rec: 06/07/20 15:46 [facility] [id number]) OT Gross Range of Motion Upper Extremity Range of Motion Assessment Within Functional Limits OT Strength Upper Extremity Strength Assessment Within Functional Limits OT-Muscle Tone Assessment Muscle Tone WNL Yes M9 OT- IP Assessment and Plan Start: 06/07/20 15:24 Freq: Status: Active Protocol: Document 06/08/20 11:39 [facility] (Rec: 06/08/20 11:44 [facility] [id number]) OT Summary Assessment and Plan Potential Rehabilitation Potential Good Analytic Complexity at Evaluation Low Summary OT Impairments Pain,Balance,Functional Cognition,Functional Mobility, Dressing,Toileting,Bathing, Toilet Transfers,Shower Transfers,Activity Tolerance Progress Towards Goals Progressing Toward Goals Assessment Summary Pt low complexity evaluation s /p admit for L5-S1. Pt is progressing with therapy and is likely safe for d/c home with family assist. Pt participated in showering today and educated on safe car transfers. Pt is planned for discharge home today. Goals Grooming Goal Independent Dressing Goal Independent Toileting Goal Independent Bathing Goal Independent Toilet Transfer Goal Independent Shower Transfer Goal Independent Patient/Caregiver Education Goal Caregiver Independent Assisting Patient Days to Meet Goals 2 Frequency of Treatment Frequency Of Treatment Once a Day Treatment Plan OT Treatment Plan ADL Training,Functional Cognition Training,Functional Mobility,Patient/Family Education,Discharge Planning Other Treatment Recommendations and Next Shower Treatment Focus Discharge Recommendations OT Discharge Recommendations Home with Assistance Home Equipment Needs shower chair Transportation Needs at Discharge Private Vehicle
--- NOTE | 2020-06-08 11:01 | PC.NURSE ---
Day shift: Paperwork signed and all questions answered. Pt has all personal belongings. Pt has MD scripts. Dressing changed and remains CDI. Taken to car by RANJAN in . Her Son is driving her home to [facility] [employer].
--- NOTE | 2020-06-08 11:54 | CM.DPNOTE ---
DC Note DC order in place this morning. Patient plans to return home w/family to assist. No needs indicated from this CEMENT FINISHER HELPER. Will remain available in case DC needs or concerns arise today. DAKSHA
== END 2020-06-08 11:12 | disposition home or self-care (01) ==
LOC: OR 13:20 → AC 13:20
PROVIDERS: Admitting Provider Orthopaedic Surgery Orthopaedic Surgery of the Spine; PCP Physician Assistant; Referring Provider Orthopaedic Surgery Orthopaedic Surgery of the Spine; Visit Provider Orthopaedic Surgery Orthopaedic Surgery of the Spine
PROC: (CPT 22633; principal; 2020-06-06 12:15)
DX: M43.16 Spondylolisthesis, lumbar region (principal); M48.061 Spinal stenosis, lumbar region without neurogenic claudication; G47.33 Obstructive sleep apnea (adult) (pediatric); J45.909 Unspecified asthma, uncomplicated; M54.16 Radiculopathy, lumbar region; G62.9 Polyneuropathy, unspecified; R32 Unspecified urinary incontinence
CPT/HCPCS: 22633; 20939; 22853; 63030; 22840; 63047; 72100; 76000; 82962; 94760; 97116; 97161; 97165; 97530; 97535; C1776; G0378; C9290; J0131; J0690; J1100; J1170; J2405; J3010; J3410

== ENCOUNTER → 2020-07-13 12:48 | Outpatient (CLI) | payer OTHER, SELFPAY ==
[2020-06-06 17:20] VITALS: BMI 37.1
--- NOTE | 2020-07-13 | DI.RAD.S_ITS ---
PROCEDURE: XR LUMBAR SPINE 2-3V INDICATIONS: Spondylolisthesis, lumbar region TECHNIQUE: 2 views of the lumbar spine were acquired. COMPARISON: [facility], CR, XR LUMBAR SPINE 2-3V, 06/06/2020, 13:06. FINDINGS: Bones: 5 [id number] vertebrae are present. There is mild grade 1 anterolisthesis of L4 on L5. Posterior fusion of L5-S1 with paired posterior rods and pedicle screws. Interbody device at L5-S1. Mild diffuse leftward curvature of the lower lumbar spine. Multilevel disc space narrowing and endplate osteophyte formation within the lumbar and lower thoracic spine. No vertebral body compression fractures. No suspicious bony lesions. Soft tissues: Overlying bowel gas pattern is normal. No suspicious soft tissue calcifications. IMPRESSION: 1. Postsurgical sequelae. 2. Multilevel degenerative disc and facet disease. 3. No acute fracture. No osseous lesion. If symptoms and/or clinical suspicion for pathology persist, further assessment with repeat, or advanced imaging (e.g., CT, MRI, or bone scan) may be helpful for further assessment. Dictated by: Gaston Hamlin M.D. on 07/13/2020 at 16:54 Approved by: Gaston Hamlin M.D. on 07/13/2020 at 16:55
== END ==
PROVIDERS: PCP Registered Nurse; Referring Provider Orthopaedic Surgery Orthopaedic Surgery of the Spine; Visit Provider Orthopaedic Surgery Orthopaedic Surgery of the Spine
DX: M43.16 Spondylolisthesis, lumbar region (principal); M51.36 Other intervertebral disc degeneration, lumbar region; Z98.1 Arthrodesis status
CPT/HCPCS: 72100

== ENCOUNTER → 2020-12-20 13:21 | Outpatient (CLI) | payer OTHER, SELFPAY ==
[2020-06-06 17:20] VITALS: BMI 37.1
--- NOTE | 2020-12-20 13:23 | DI.CT.S_ITS ---
PROCEDURE: CT LUMBAR SPINE WO CON INDICATIONS: Spondylolisthesis, lumbar region TECHNIQUE: Noncontrast 3 mm thick sections acquired from the T12 level to the sacrum. Sagittal and coronal reformats were constructed. For radiation dose reduction, the following was used: automated exposure control. COMPARISON: None. FINDINGS: Image quality: Excellent. Bones: There is normal bony alignment. No acute vertebral body compression fractures. No suspicious lytic or blastic bony lesions. No pars defects. Posterior fusion hardware at L5-S1 is present, as before. Multilevel disc bulges and facet hypertrophy. Mild multifocal canal stenosis throughout the lumbar and lower thoracic spine. Moderate foraminal stenoses are seen bilaterally at L3-L4 and L4-L5. There is moderate to severe foraminal stenosis seen bilaterally at L5-S1 which is not well visualized secondary to metallic artifact. Soft tissues: No retroperitoneal masses or hematomas. Visualized aorta is normal in caliber. IMPRESSION: 1. Postsurgical sequelae. 2. Multilevel degenerative disc and facet disease. 3. Mild multilevel canal stenosis. 4. Multilevel foraminal stenosis as described above. Dictated by: Gaston Hamlin M.D. on 12/20/2020 at 13:57 Approved by: Gaston Hamlin M.D. on 12/20/2020 at 13:59
== END ==
PROVIDERS: PCP Registered Nurse; Referring Provider Orthopaedic Surgery Orthopaedic Surgery of the Spine; Visit Provider Orthopaedic Surgery Orthopaedic Surgery of the Spine
DX: M43.16 Spondylolisthesis, lumbar region (principal)
CPT/HCPCS: 72131

== ENCOUNTER → 2021-05-06 13:50 | Outpatient (CLI) | payer OTHER, SELFPAY ==
[2020-06-06 17:20] VITALS: BMI 37.1
--- NOTE | 2021-05-06 | DI.MRI.S_ITS ---
PROCEDURE: MR LUMBAR SPINE WO CON INDICATIONS: Spinal stenosis, lumbar region without neurogenic claudicati TECHNIQUE: Noncontrast sagittal T1 spin echo and T2 fast echo, sagittal STIR, axial T1 and T2 fast spin echo through the lumbar spine. In cases with scoliosis, additional coronal T2 fast spin echo may be performed. COMPARISON: [facility], MR, L-SPINE WITHOUT CONTRAST, 01/26/2016, 13:51. [facility], CR, XR LUMBAR SPINE 2 OR 3 VIEWS, 04/16/2021, 13:38. [facility], MR, MR LUMBAR SPINE WO CON, 11/21/2019, 14:01. FINDINGS: Image quality: This examination is limited by involuntary motion artifact. Alignment and Curvature: There is normal bony alignment. Bone Marrow: Marrow is of normal overall signal. No acute vertebral body compression fractures. Spinal Cord: Conus medullaris terminates at the L1 level. Visualized cord demonstrates normal signal and size. Paraspinous Soft Tissues: No paravertebral masses. T11-T12: Moderate loss of disc height is seen. Loss of disc signal is seen. Bridging endplate osteophytes are seen. No significant neural foraminal or central canal narrowing can be seen. T12-L1: [id number] loss of disc height and disc signal can be seen. Mild generalized disc bulge is seen. Bridging endplate osteophytes are seen. No significant neural foraminal or central canal narrowing can be seen. L1-L2: The disc height is well-preserved. Loss of disc signal is seen at this level. No significant neural foraminal or central canal narrowing can be seen. L2-L3: The disc height is well-preserved. Loss of disc signal is seen at this level. Moderate generalized disc bulge is seen. There is a superimposed central disc protrusion. Moderate facet joint hypertrophy is seen. Moderate bilateral neural foraminal narrowing is seen. Moderate central canal narrowing is seen. There is mild progression of degenerative change compared to the prior MRI. L3-L4: The disc height is well-preserved. Loss of disc signal is seen at this level. Moderate generalized disc bulge is seen. There is a superimposed central disc protrusion. Moderate facet joint hypertrophy is seen. There is at least moderate right-sided and moderate left-sided neural foraminal narrowing. Moderate central canal narrowing is seen. When compared to 2019, these degenerative changes are mildly progressed. L4-L5: Mild loss of disc height is seen. Loss of disc signal is seen. At least moderate disc bulge is seen, which is eccentric to the right side. There is a superimposed central disc protrusion. At least moderate facet hypertrophy is seen. Associated hypertrophy of the ligamentum flavum can be seen. There is moderate to severe right-sided neural foraminal narrowing, with a mild degree of compression upon the exiting right L4 nerve root. Moderate left-sided neural foraminal narrowing is seen. At least moderate central canal narrowing is seen. Compared to the prior MRI, these degenerative changes have progressed. L5-S1: Postoperative changes are seen at this level, with bilateral pedicle screws, vertical fixation rods, and a disc spacer. Moderate generalized disc bulge is seen. At least moderate facet hypertrophy is seen. There is moderate left-sided and minimal right-sided neural foraminal narrowing. No central canal narrowing is seen. The degree of neural foraminal narrowing at this level has improved compared to the preoperative MRI. IMPRESSION: Since the prior MRI, there is been postoperative change at L5-S1, with improvement in the degree of neural foraminal narrowing at this level. Since the prior MRI, there has been progression of degenerative change at several levels. Dictated by: Alexander Chacon M.D. on 05/06/2021 at 13:22 Approved by: Alexander Chacon M.D. on 05/06/2021 at 13:27
== END ==
PROVIDERS: PCP Registered Nurse; Referring Provider Orthopaedic Surgery Orthopaedic Surgery of the Spine; Visit Provider Orthopaedic Surgery Orthopaedic Surgery of the Spine
DX: M48.061 Spinal stenosis, lumbar region without neurogenic claudication (principal); M47.816 Spondylosis without myelopathy or radiculopathy, lumbar region; M47.817 Spondylosis without myelopathy or radiculopathy, lumbosacral region; Z98.1 Arthrodesis status
CPT/HCPCS: 72148

== ENCOUNTER → 2021-06-18 14:04 | Outpatient (CLI) | payer OTHER, SELFPAY ==
[2020-06-06 17:20] VITALS: BMI 37.1
[2021-06-18 15:34] LABS: Add Manual Diff / Slide Review NO; Basophils Absolute Auto 0 /uL (0-100); Basophils Percent Auto 0.5 % (0-2); Eosinophils Absolute Auto 0 /uL (0-450); Eosinophils Percent Auto 0.4 % (2-4); Hematocrit 40.5 % (36-46); Hemoglobin 14.3 g/dL (12.0-16.0); Lymphocytes Absolute Auto 1600 /uL (1100-4500); Lymphocytes Percent Auto 17.8 % (25-40); Mean Corpuscular HGB Conc 35.4 % (30-36); Mean Corpuscular Hemoglobin 33.8 PG (26-34); Mean Corpuscular Volume 95.6 fL (80-100); Monocytes Absolute Auto 500 /uL (0-900); Monocytes Percent Auto 5.9 % (3-14); Neutrophils Absolute Auto 6900 /uL (1500-7000); Neutrophils Percent Auto 75.4 % (50-75); Platelet Count 268 X10^3/uL (150-400); Red Blood Cell Count 4.23 X10^6/uL (4.0-5.2); Red Cell Distribution Width 14.7 % (11.6-14.8); White Blood Cell Count 9.2 X10^3/uL (4.5-11.0)
[2021-06-18 16:02] LABS: BUN Creatinine Ratio 15.7 (6-22); Blood Urea Nitrogen 14 mg/dL (7-17); Calcium 9.5 mg/dL (8.4-10.2); Carbon Dioxide 30 mmol/L (22-32); Chloride 95 mmol/L (98-107); Estimated Glomerular Filt Rate > 60.0 mL/min (>60); Glucose 100 mg/dL (80-110); HEMOLYSIS < 15 (0-50); Potassium 3.6 mmol/L (3.4-5.1); Sodium 133 mmol/L (137-145)
== END ==
PROVIDERS: PCP Registered Nurse; Referring Provider Orthopaedic Surgery Orthopaedic Surgery of the Spine; Visit Provider Orthopaedic Surgery Orthopaedic Surgery of the Spine
DX: Z01.818 Encounter for other preprocedural examination (principal); Z01.812 Encounter for preprocedural laboratory examination
CPT/HCPCS: 36415; 80048; 85025; 93005

== ENCOUNTER → 2021-06-26 11:28 | Outpatient (CLI) | payer OTHER, SELFPAY ==
[2020-06-06 17:20] VITALS: BMI 37.1
[2021-06-26 12:53] LABS: COVID19 -Nasal RAPID Negative (Negative)
== END ==
PROVIDERS: PCP Registered Nurse; Visit Provider Family Medicine Sleep Medicine
DX: Z20.822 Contact with and (suspected) exposure to COVID-19 (principal)
CPT/HCPCS: 87635

== ENCOUNTER 2021-06-28 10:12 | Inpatient (IN) | payer OTHER, SELFPAY ==
[2020-06-06 17:20] VITALS: BMI 37.1
[2021-06-19 08:21] VITALS: BMI 39.0
[2021-06-28] VITALS (12 sets, daily range): BP systolic 123–175; BP diastolic 66–99; PULSE 69–90; RESP 13–16; TEMP 35.7–36.8; O2SAT 93–99; BMI 39.0
--- NOTE | 2021-06-28 | DI.RAD.S_ITS ---
PROCEDURE: XR LUMBAR SPINE 2-3V INDICATIONS: L4-5 TLIF, L4-S1 HARDWARE REINSERTION TECHNIQUE: 2 low resolution fluoroscopic spot films were obtained intraoperatively [facility] 12:51. FINDINGS: Spot films show L4-5 and L5-S1 interbody fusion with fusion cage and posterior kvng and screw instrumentation extending from L4 through S1, all in good position IMPRESSION: Fluoroscopic guidance Approved by: Pj Young M.D. on 06/28/2021 at 16:00
[2021-06-28] MEDS: LACTATED RINGERS 1,000 ML 42 ML IV ×2 (11:24→14:12)
[2021-06-28] MEDS: ACETAMINOPHEN 325 MG TABLET 975 MG PO (11:26)
--- NOTE | 2021-06-28 12:28 | PC.NURSE ---
Day shift: Pt not on AC unit at this time ([id number]).
--- NOTE | 2021-06-28 12:58 | PM.PREOP ---
Pre-operative Note COVID-19 COVID-19 status: Negative Result date/Date tested (Pos, Neg/Pending): 06/27/21 Criteria for continued procedure: Expected advancement of disease process, Possibility delay results in more complex future surgery or treatment, Increased loss of function, Continuing or worsening of significant or severe pain, Deterioration of the patient's condition or overall health and Delay expected to result in less-positive ultimate med/surg outcome Interval Note History & Physical reviewed/Exam performed by Physician: Yes Changes to H&P: No
[2021-06-28] MEDS: CEFAZOLIN 2 GM/20 ML SYRINGE IV ×2 (13:52→21:46)
--- NOTE | 2021-06-28 14:05 | SUR.OPER ---
Prone on spine table, head in foam head support, eyes secured closed with tape per anesthesiologist, padded chest and pelvic supports, gel pad at knees and between bilateral feet, lower legs supported by pillows; nipples, genitalia and toes free of pressure, arms secured on foam padded arm boards at <90 degrees abduction. Tape over blanket at thigh secured to table.
[2021-06-28] MEDS: BUPIVACAINE 0.25% (PF) 60 ML, EPINEPHrine 0.3 MG INJ (14:10)
[2021-06-28] MEDS: BUPIVACAINE LIPOSOME 266 MG/20 ML VIAL INJ (14:11)
--- NOTE | 2021-06-28 14:35 | PM.AN.REGBLK ---
Regional Block Pre-procedure Medications: Current Medications Generic Name Dose Route Start Last Admin Trade Name Freq PRN Reason Stop Dose Admin Lactated Ringer's 1,000 mls @ 42 mls/hr 06/28/21 10:45 06/28/21 14:12 Lactated Ringers IV 42 mls/hr CONT JAIDA Administration Allergies: Allergies Allergy/AdvReac Type Severity Reaction Status Date / Time adhesive tape AdvReac Mild Red, itchy Verified 06/06/20 10:53 Procedure Needle: 18 gauge Damon (CSE: 27g Pencan )
--- NOTE | 2021-06-28 14:38 | SUR.OPER ---
Patient has 2 bracelets remaining to right arm that cannot be removed due to them being soldered together. Secured with tape.
--- NOTE | 2021-06-28 17:04 | PM.OP.1 ---
Operative Date/Time/Diagnoses Date of procedure: 06/28/21 Time of procedure: 13:00 Pre-op diagnosis: 1. L4-5 spinal stenosis with neurogenic claudication 2. Hx of L5-S1 with hardware loosening Post-op diagnosis: same Procedure & Clinicians Procedure: 1. L4-5 posterolateral and posterior interbody fusion 2. L4-5 posterior interbody cage placement 3. L5-S1 posterior non-segmental instrumentation removal 4. L5-S1 revision laminectomy with exploration of fusion 5. L4-5, L5-S1 posterior segmental instrumentation with pedicle screw placement 6. L5-S1 posterolatearl fusion 7. Cub Run of bone marrow from iliac crest through a separate incision 8. Utilization of microsurgical technique and operating microscope Same procedure as scheduled: Yes Indications: Patient has been having chronic back pain and worsening lumbar radiculopathy. Patient failed multiple conservative management with worsening pain weakness and numbness in her lower extremity. Patient has been having difficulty performing activity of daily living. After discussing risks benefits of treatment options, patient elected proceed with surgery. Surgeon: Chau Altamirano [employer] Specialist: Tona Loaiza Click Yes if Unassisted: No Anesthesia Type: General Operative Notes Closure Type: primary Specimen(s): none sent Prosthetic devices, grafts, tissues, transplants, or devices: Globus revolve screws, Rise cage Applied: catheter Estimated Blood Loss (mL): 100 Blood products transfused: none Procedure in detail: Patient was seen in the preoperative area. Risks and benefits of the surgery was discussed with the patient. Informed consent was obtained from the patient and placed in the chart. Surgical site was marked. Patient was taken to the operative room. General anesthesia was administered. Prophylactic antibiotic was given to the patient less than 30 min before the incision was made. Patient was placed into a prone position on the Chau table. Patient's back was then prepped and draped in the sterile fashion. Time-out was performed at this time. Using patient's previous scar incision was made over the L4-5 L5-S1 interval on the right side. Fascia was incised in line with skin incision. Patient's previously placed hardware over the L5-S1 level was identified by dissecting down to the level the hardware using a Bovie and a Berry. The locking caps which was removed using globus screwdriver. The locking kvng was then removed from the tulips of the pedicle screws using a Joseph. The pedicle screws were then removed using the screwdriver. The screws were found to have good purchase except the left L5 pedicle screw which was found to be loose. The Globus and MARS retractors was then placed into the wound and docked onto the L4 lamina using C-arm guidance. Using microsurgical technique and operating microscope a laminectomy facetectomy was performed by removing the L4 lamina and the L4-5 facet. The disc space at L4-5 level was identified next. And a total diskectomy was performed at L4-5 level. The endplates were decorticated using a rasp and shaver. The total diskectomy and decortication was performed at L4-5 level in order to to accomplish a L4-5 fusion. The local bone from the laminectomy and facetectomy was saved for local bone grafting. After the total diskectomy and decortication was completed, Trifecta bone graft material was combined with local bone that was harvested earlier. At this time, a separate skin is incision was made over the iliac crest. A Jamshidi needle was inserted into the iliac crest through a separate skin incision. 5 cc of bone marrow aspiration was obtained through the separate skin incision using a Jamshidi needle from the iliac crest. The bone marrow aspiration was combined with local bone and the Trifecta bone grafting material. The bone grafting material was placed into the L4-5 interbody space along with a expandable cage. The cage was expanded to its maximum height using the torque limiting screwdriver. At this time a mirror image incision was made on the left side. The fascia was incised in line with the skin incision. Patient's previously placed hardware on the right side was then removed in the same fashion as it was on the left side. The hardware was also found to have good purchase. The fusion mass on the left side was exposed by performing a left-sided hemilaminectomy at L5-S1 level. The hemilaminectomy was performed using the Kerrison rongeur to undercut the lamina at L5-S1 as well removing additional epidural scar tissue for purpose of decompressing the epidural space. The fusion mass was explored and was found have visible motion indicating pseudoarthrosis. Globus MARS retractor was inserted and docked onto the L4-5 L5-S1 posterolateral gutter. Using the power drill, posterior-lateral decortication was performed at L4-5 L5-S1 level until bleeding cortical bone was identified. The remaining bone grafting material was placed into the L4-5 L5-S1 posterior lateral gutter he order to accomplish posterolateral fusion at the L4-5 L5-S1 level. Using the double C-arm technique, pedicle screws were placed into the L4-L5 and S1 pedicles bilaterally. This was done by placing the Jamshidi needle into the pedicles, then placing the guidewires over the Jamshidi needle, and finally placing the cannulated screws over the guidewires bilaterally. After the pedicle screws were placed, 2 titanium rods was locked into the heads of the pedicle screws using locking caps and torque limiting screwdriver. After all the hardware was placed, and confirmed with AP and lateral C-arm imaging, the wound was then irrigated with sterile normal saline and packed with Ray-Rosie gauze for 3 min to accomplish hemostasis. After the gauze was removed the deep fascia was closed with #1 Vicryl suture. The subcutaneous layer was closed with 2-0 Vicryl. The skin was closed with skin hitesh. Patient tolerated the procedure well. There were no complications. Complications: none Post-operative Condition: stable Disposition: PACU Plan for aftercare: Admit to inpatient hospital
[2021-06-28] MEDS: hydrOXYzine 50 MG/ML INJ 25 MG IM (17:14)
[2021-06-28] MEDS: OXYCODONE IR 5 MG TABLET PO (17:14)
[2021-06-28] MEDS: HYDROMORPHONE 2 MG INJ IV ×4 (17:22→17:37)
[2021-06-28] MEDS: ONDANSETRON 4 MG/2 ML INJ IV ×2 (17:38→17:39)
--- NOTE | 2021-06-28 18:07 | PC.NURSE ---
Day shift: Pt on AC unit from PACU at approx 1805. Dressing is CDI. 3L NC 94%. CMS intact. Lying on rt side for comfort. Tolerating foot SCD's. She will be a high fall risk for now. Andrade patent with clear yellow output. VS OK w/ elevated BP but has Hx HTN. WIll continue with post-op plan of care. Oriented to room and call light.
[2021-06-28] MEDS: SODIUM CHLORIDE 0.9% 1,000 ML 100 ML IV (18:16)
--- NOTE | 2021-06-28 19:48 | PC.NURSE ---
Addendum entered by Anjelica Cisse R.N. 06/28/21 19:50: Correction to previous note: Patient is on oxygen at 2L/min per NC with sat of 95%. Patient does have a history of sleep apnea and does mouth breathe so NC is placed in mouth to maintain sats > 92%. Original Note: Patient is alert and oriented but very drowsy following recent return from surgery but arouses easily. Speech sounding slurred/soft spoken. Breath sounds CTA with RA sat of 98%. HRR. Denies nausea. BT present and abdomen is soft. Indwelling catheter is patent; urine is dark, clear, yellow. Needing assistance to reposition in bed. Gait not assessed at this time. Dressing to back is CDI. Denies any tingling/numbness in all extremities. Foot SCD's placed. Fall risk score is high and bed alarm is activated.
[2021-06-28] MEDS: GABAPENTIN 600 MG TABLET PO (20:48)
[2021-06-29 01:00] VITALS: BP 137/77; PULSE 72; RESP 17; TEMP 35.8; O2SAT 95
[2021-06-29] MEDS: OXYCODONE IR 5 MG TABLET 10 MG PO ×6 (02:09→23:54)
[2021-06-29] MEDS: SODIUM CHLORIDE 0.9% 1,000 ML 100 ML IV (04:06)
[2021-06-29 05:41] VITALS: BP 142/64; PULSE 79; RESP 17; TEMP 36; O2SAT 98
[2021-06-29] MEDS: CEFAZOLIN 2 GM/20 ML SYRINGE IV (05:51)
[2021-06-29 06:27] LABS: Hematocrit 35.6 % (36-46); Hemoglobin 12.6 g/dL (12.0-16.0)
[2021-06-29 07:40] VITALS: BP 140/69; PULSE 78; RESP 16; TEMP 36.2; O2SAT 95
[2021-06-29] MEDS: GABAPENTIN 600 MG TABLET PO ×2 (08:33→21:28)
[2021-06-29] MEDS: buPROPion XL 150 MG TAB 450 MG PO (08:33)
[2021-06-29] MEDS: DOCUSATE 100 MG CAPSULE PO ×2 (08:33→21:29)
[2021-06-29] MEDS: VALSARTAN 80 MG TABLET 160 MG PO (08:33)
[2021-06-29] MEDS: hydroCHLOROthiazide 25 MG TABLET PO (08:34)
[2021-06-29] MEDS: QUETIAPINE 25 MG TABLET PO (08:34)
[2021-06-29] MEDS: PANTOPRAZOLE DR 40 MG TABLET PO (08:34)
--- NOTE | 2021-06-29 09:57 | PT.IIE ---
Current Diagnoses Spondylolisthesis, lumbar region (06/28/21) Spinal stenosis, lumbar region without neurogenic claudication (06/28/21) Arthrodesis status (06/28/21) Surgery Performed Operation Date: 06/28/21 12:15 Actual Procedures p L4-5 TLIF, L5-S1 lumbar HWR, exploratin of fusion, repeat laminectomy, reinsertion of hardware L4-S1 wPhong Altamirano MD Medical History (Last Reviewed 06/29/21 @ 11:51 by Tona Loaiza PA-C) Chronic diarrhea Fecal incontinence Internal hemorrhoids Neck pain with history of cervical spinal surgery Neuropathy Poor balance Recent urinary tract infection Spinal stenosis of lumbar region Spondylolisthesis, lumbar region Tortuous colon Physical Therapy Inpatient Evaluation/Re-Eval M1 PT/OT-IP Prior Functional Status Start: 06/29/21 12:10 Freq: NEEDED Status: Active Protocol: Document 06/29/21 09:57 AB (Rec: 06/29/21 12:22 AB [id number]) Medical Review Prior Functional Status Medical History Reviewed Yes Communication able to make needs known Mobility and Gait pt stated that she is indpeendent with all mobilities and ambulation without AD but started to have increase back pain ~ 6 weeks ago and have to use her SPC and occasionally uses her FWW depending on level of pain Social History Household Members none Living Arrangements House Number of Floors (Floors) One Floor Number of Stairs To Enter/Railing? 2 platform steps to enter the house Home Environment Standard Height Toilet,Walk in Shower Home Equipment Front Wheel Walker,Straight Cane,Shower Seat with Backrest ,Grab Bars Near Toilet,Grab Bars In Shower Additional Social History Comment pt's son plans to stay and assist pt at home M2 PT-IP Current Condition Start: 06/29/21 12:10 Freq: NEEDED Status: Active Protocol: Document 06/29/21 09:57 AB (Rec: 06/29/21 12:22 AB [email or web address]) Physical Therapy Current Condition Current Condition Evaluation Date 06/29/21 Treatment Diagnosis s/p L4-5,L5S1 TLIF; difficulty in walking Onset Date 06/28/21 M3 PT-IP Subjective Start: 06/29/21 12:10 Freq: NEEDED Status: Active Protocol: Document 04/02/22 09:57 AB (Rec: 06/29/21 12:22 AB [email or web address]) Subjective Physical Therapy Visit Type Type Initial Evaluation Visit Start Time 09:57 Visit Stop Time 10:35 Total Visit Minutes 38 Number of CONTENT DIRECTOR Visits 0 Physical Therapy Visit Comments Patient Comments agreeable to do PT M4 PT-IP Mobility and Gait Start: 06/29/21 12:10 Freq: NEEDED Status: Active Protocol: Document 06/29/21 09:57 AB (Rec: 06/29/21 12:22 AB [email or web address]) PT-Bed Mobility Assessment Rolling Level of Assist Maximal Assistance Supine to Sit Supine to Sit Maximum Assistance,1 Person Assistance PT-Transfer Assessment Sit to and From Stand Sit to and from Stand Maximum Assistance,1 Person Assistance,2 Person Assistance ,Use of Upper Extremities Equipment Transfer Assistive Device Gait Belt,Front Wheeled Walker Orthotic/Prosthetic Devices or Brace: No Transfers Transfer Destination Chair Transfer Technique Stand Step Pivot Transfer Ability Level of Assist Maximum Assistance,1 Person Assistance,2 Person Assistance ,Use of Upper Extremities Comments Mobility Comments pt asleep and was able to wake up but continues to be sleepy and requires constant cues to stay awake. agreed to do PT. educated on back precautions and log roll bed mobility. pt completed supine to sit max A and max cues. sat on SUJATHA mod A with increase lateral trunk lean to the R and posteriorly. educated pt on COG and stability. completed sit to stand max A x 1-2 and with increase R sided leaning and cues to sit back down. educated pt on use of FWW, COG and LE steadiness during stand. completed sit to stand again max A x 1-2 and max cues and completed step transfer to chair max A x 1-2 and max cues. positioned pt on the chair. call light and table placed within reach. unable to ambulate at this time. pt with decrease safety awareness and difficulty with following directions. Gait Assessment Comments Gait Comments unable at this time PT-Balance Assessment Sitting Balance and Reactions Static Sitting Balance Ability Fair Dynamic Sitting Balance Ability Poor Standing Balance and Reactions Static Standing Balance Ability Poor Dynamic Standing Balance Ability Poor Device Used FWW M5 PT-IP Objective Assessments Start: 06/29/21 12:10 Freq: NEEDED Status: Active Protocol: Document 06/29/21 09:57 AB (Rec: 06/29/21 12:22 AB [email or web address]) Orientation Orientation/Cognition Level of Alertness Confusional State Orientation Name,Place,Situation Safety Awareness Decreased Safety Awareness Memory Description Short Term Impaired,Piano Technician Impaired Gross Range of Motion Lower Extremity ROM Assessment Within Functional Limits Strength Lower Extremity Strength Assessment Bilaterally Impaired Hip 3+/5 Knee 3+/5 Sensation Assessment Sensation Gross Sensation WNL Muscle Tone Muscle Tone WNL Yes M6 PT-IP Treatment Start: 06/29/21 12:10 Freq: NEEDED Status: Active Protocol: Document 06/29/21 09:57 AB (Rec: 06/29/21 12:22 AB [id number]) Physical Therapy Treatment Education Education Provided Precautions,Weight Bearing Status,Post-Op Packet,Safety M7 PT-IP Assessment and Plan Start: 06/29/21 12:10 Freq: NEEDED Status: Active Protocol: Document 06/29/21 09:57 AB (Rec: 06/29/21 12:22 AB [email or web address]) PT Summary Assessment and Plan Potential Rehabilitation Potential Fair Status of Condition at Evaluation Evolving Summary Impairments Pain,ROM,Strength,Balance, Coordination,Sensation,Tone, Cognition,Bed Mobility, Transfers,Gait,Activity Tolerance Assessment Summary pt requiring max A x 1-2 with all mobilities using FWW. d/c plan depending on progress but at this time may require SNF rehab. pt's son will stay with pt to assist and when appropriate, caregiver training will be conducted as well as stair climbing training. Goals Bed Mobility Goal Standby Assistance Transfer Goal Standby Assistance,Front Wheeled Walker Gait Goal Standby Assistance,Front Wheel Walker Gait Distance 200 Other Goals up/down 2 platform steps using FWW CGA Days to Meet Goals 5 Frequency of Treatment Frequency Of Treatment Twice a Day Treatment Plan Physical Therapy Treatment Plan Bed Mobility Training,Transfer Training,Gait Training, Therapeutic Exercise,Balance Retraining,Post Op Education, Discharge Planning,Hot or Cold Pack,Neuromuscular Re-ed, Coordination Retraining,Manual Therapy Precautions Lumbar Precautions Log Roll,No Twisting,Limit Bending,Lifting Restriction of 10 lbs,Gait Belt above Incisional Area Recommendations To Nursing Amount of Assist Needed 2 Person Assist Discharge Recommendations PT Discharge Recommendations Home with 20/10 Assist Available,Home Health,SNF Rehab,Home vs SNF Transportation Needs at Discharge Private Vehicle,Wheelchair/ Cabulance
[2021-06-29 10:30] VITALS: O2SAT 92
--- NOTE | 2021-06-29 10:41 | PC.NURSE ---
Day shift: Dressing changed by CLARISSE Carbone today at approx 1030. Pt tolerated well. The 2 op-sites are well approximated w/ no s/s of infection. Gauze dressing applied prior to the Coversite. CLARISSE Carbone was also asked to clarify Pt's imodium vs stool softener orders in the MAY. Pt OOB to chair with PT. Pt will work with PT again this afternoon. Chair alarm in place and call light in reach. Family member in room at this time as well.
--- NOTE | 2021-06-29 11:23 | CM.DANOTE ---
Addendum entered by CECILIA Martínez 06/29/21 15:45: ADD: Per PT this PM, pt was able to participate but sometimes requiring Max A cues and assist and pending progress HH vs SNF. SW called [facility] rehab and provided referral for review and updated that pt has [facility] and no [facility] auth started yet as pt is hopeful for home and may do much better tomorrow AM. [facility] willing to review. SW could not find pt on [facility] website for COVID vaccines and did not have time to meet bedside with pt again to ask. [facility] states if pt not vaccinated or fully vaccinated they do have a bed available for quarantine if needed. Plan: SW to follow closely for further PT in the AM to determine if SNF auth request needs to be sent to [facility] for auth if SNF needed. SW to follow for [facility] review and confirmation if pt COVID vaccinated if SNF needed. Otherwise, HH referral will be needed. BF Original Note: Patient is a 70 yo female who was admitted on 06/28/21 for TLIF. Pt has [facility] for insurance and her PCP is Dr. Cailin Tee. EMR was reviewed. Per Ortho, pt tolerated procedure well and to work with PT. PT/OT ordered and pending. Pt has hx of back surgery about a year ago in May 2020 and was able to d/c home with son and no needs. SW met bedside with pt and son King and explained role and pt confirms she still lives in [place] on [address] alone but supportive son still nearby. Pt denies any hx of HH or SNF and last admission for back surgery pt went home with outpt PT. Son King confirms he plans to stay with pt again, even a couple weeks if needed and pt already has cane and walker at home. Son King states that pt currently is below her baseline with mobility and having a harder time currently than last back surgery and King concerned pt will have more needs at d/c but is very agreeable with participating in CG training with PT/OT. SW discussed HH services and frequency and they would be agreeable if HH recommended and SW discussed SNF rehab but that [facility] would have to auth for SNF after elective back surgery and the potential barriers. Pt and son confirm preference is home if possible. Plan: SW to follow closely for PT/OT eval and recommendations towards confirming HH vs SNF at d/c and pt's supportive son very involved and capable. CECILIA Martínez Discharge Planning/Care Management CM Discharge Assessment Start: 06/29/21 11:17 Freq: Status: Active Protocol: Document 06/29/21 11:17 BF (Rec: 06/29/21 11:23 BF [id number]) Discharge Planning Assessment Assigned Rescue Boat Operator CECILIA Simeon DPOA/Assigned Designee Name radha Malik Contact Information [phone] Advance Directives? Yes Advance Directives on File No History Provided By Patient,Family Member,Medical Record Has Patient been admitted in last 30 No days? Prior Living Arrangements House Household Members none Type of transporation used prior to Drives own vehicle admit Independent with ADL's Yes Is patient alert and oriented? Yes Caregiver for Another No Community Services used prior to Physical Therapy admission: DME Already Rented / Owned FWW / Walker,Cane Comment Pending further PT Barriers to Discharge No Discharge Plan Home with Home Health Transportation Arrangement Son bedside and plans to transport Additional Comment HH vs SNF pending progress Whiteboard Updated in Patient Room with Yes name and ext. # of Rescue Boat Operator Review Status In Process Please Provide Date Initial DC 06/29/21 Assessment Was Performed Next Review Type Continued Stay Review Pre-Anesthesia Assessment Start: 06/19/21 08:20 Freq: Status: Complete Protocol: Document 06/19/21 08:21 CAB (Rec: 06/19/21 09:16 CAB [id number]) Pre-Anesthesia Assessment Preferred Name [facility] Patient Information Reviewed Via Phone Assessment Assessment Completed With Patient Diagnostic Results BMP/CMP,CBC,EKG Comment Labs/ECG @ [facility] 06/18/21, COVID screen-needs to schedule Primary Care Provider Cailin Tee Seen Specialist in Last 12 Months Yes Specialist Seen Orthopedist Primary Language Kazakh Preferred Language Kazakh [employer] Required No Height 167.64 cm Weight 109.769 kg Body Mass Index (BMI) 39.0 Hearing Ability Normal Visual Assist Glasses Dentition Type Teeth, Natural Present,Teeth, Missing Barriers to Learning Visual Other Aids No Hx Anesthesia Reactions No Hx Family Anesthesia Reaction No Hx Malignant Hyperthermia No Hx Blood Transfusions No Hx Blood Transfusion Reaction No Anesthesia Review Requested No Sales And Catering Coordinator No alcohol intake current alcohol intake frequency a few times a week Smoking Status Former smoker Tobacco type cigarettes how long ago did patient quit smoking 1997 Substance Use Type does not use Pain Present Pain Reported Musculoskeletal Symptoms Abnormal Gait,Back Pain, Difficulty Walking,Numbness, Tingling History of Falling (Recent or History of Yes ) Patient is completely paralyzed or No completely immobile Mental Status Oriented to own ability Comment Balance issues Is patient on oxygen? No Does patient have BURNETT/SOB Yes Hx Sleep Apnea Yes CPAP/BIPAP use prescribed and used routinely Will Bring CPAP/BIPAP DOS Yes Currently Taking a Beta Rahel No Can You Climb a Flight of Stairs Without No SOB Hx Chest Pain No Hx SOB No Hx Syncope or Dizziness No Anti-Coagulant Therapy No Has a Ski Lift Attendant No Cardiac Testing No Hx Pacemaker/ICD No Pacemaker Rep Required? No Diet Type At Home Regular dysphagia No Gastrointestinal Symptoms Diarrhea,Fecal Incontinence Comment Controlled with medications Bladder Pattern Incontinent,Nocturia Urinary Catheter Present No Hx Urinary Self Catheterization No Diabetes No Patient No Lactating No Hx Drug Resistant Organism No Presence of External or Internal Medical Yes: Lumbar/cervical hardware Devices Have you had any close contact with No someone diagnosed with COVID-19? Received a COVID vaccine? No Marital Status Lives With none Prior Living Arrangements House Number of Floors (Floors) One Floor Support System Caregiver,Child/Children Does the Patient Have Assistance After Yes: Son will stay w/pt to Surgery assist with care at [place] Patient Discharge Plan Description Return Home Comment Pt advised 3 day length of stay per surgeon office Feels Safe in Current Environment Yes Been Physically Hurt or Threatened By a No Person in Current Environment Do you have thoughts of harming yourself None or others? Are you currently considering suicide? No Do you have a plan to hurt yourself or No Plan others? Do You Have Any Spiritual Beliefs That No May Affect Your HC Choices? Do You Have Any Cultural Practices That No May Affect Your HC Choices? Comment Anglican Who Can We Speak to About Patient's Care Family, friends Identifying Code for Release of Patient Declines to issue Information Health Care Proxy/Next of Kin King (son) Health Care Proxy Emergency Contact Name King (son) Emergency Contact Advance Directives? No Power of Book Repairer No PAC Instructions Bring CPAP/BIPAP,Durable medical equipment,Medications to take/avoid,Nasal antibiotic ,No ETOH/petroleum product on skin DOS,NPO,Post-op transportation,Pre-surgical wash,Sturdy shoes/comfortable clothes,Do not bring valuables and remove jewelry
--- NOTE | 2021-06-29 11:42 | P.PN_ITS ---
Subjective Subjective Date Patient Seen: 06/29/21 Time Patient Seen: 11:42 Interval history: Patient is complaining of moderate to severe low back pain this morning. She rates her pain as a 9/10. Her son is at bedside. She denies any fevers, chills, night sweats. No new numbness or tingling. She is hoping to be discharged home, likely tomorrow. Exam Vital Signs (past 8 hours): - 06/29/21 05:41 06/29/21 07:40 Temperature 96.8 F L 97.1 F L Pulse Rate 79 78 Respiratory Rate 17 16 Blood Pressure 142/64 H 140/69 Pulse Oximetry 98 95 Oxygen Delivery Method Nasal Cannula Oxygen Flow Rate 1 Narrative Exam Narrative: Pleasant 70-year-old female, resting comfortably in her chair, no acute distress. Son is at bedside. Dressing is saturated and was changed today. There is no active drainage, no surrounding erythema or induration. Bilateral lower extremity: Motor functions are grossly intact, sensation is grossly int act to light touch, calves are soft and nontender palpation. Objective Labs Result Diagrams: 06/29/21 05:56 Labs: Laboratory Results - last 24 hr 06/29/21 05:56 Hgb 12.6 Hct 35.6 L PFS Medical History Chronic diarrhea Fecal incontinence Internal hemorrhoids Neck pain with history of cervical spinal surgery Neuropathy Poor balance Recent urinary tract infection Spinal stenosis of lumbar region Spondylolisthesis, lumbar region Tortuous colon Surgical History History of colonoscopy History of lumbar spinal fusion (06/06/20) S/P epidural steroid injection Status post cervical spinal fusion (05/25/14) Social History household members: none Smoking Status: Former smoker alcohol intake: current Assessment & Plan Post-op Postoperative Procedures: Procedures Operation Date: 06/28/21 12:15 Actual Procedure Side Surgeon p L4-5 TLIF, L5-S1 lumbar HWR, exploratin of fusion, repeat laminectomy, reinsertion of hardware L4-S1 w. PSF Chau Altamirano MD Postoperative day: 1 Postoperative status: marginal pain control Postoperative status narrative: Stable status post L5-S1 hardware removal, L4-5, L5-S1 TLIF Postoperative plan narrative: -mobilize with PT. Weightbearing as tolerated front wheel walker. Limit bending, lifting, twisting x6 weeks -continue multimodal pain management. Encouraged p.o. pain medications on a more regular basis. Change Tylenol to scheduled -dressing change today -DC home, likely tomorrow. Her son is available to help her at home and she has a few steps to get into her house, but otherwise no stairs.
[2021-06-29] MEDS: ACETAMINOPHEN 325 MG TABLET 650 MG PO ×3 (12:04→23:53)
--- NOTE | 2021-06-29 12:46 | OT.IPNOTE ---
Pt just got back to bed to too tired to do OT eval. Pt has all ADL equipment at home from prior back surgery and states her son will be able to assist her at home.
--- NOTE | 2021-06-29 13:20 | OT.IPNOTE ---
Attempted Ot eval with pt again, pt states too tired and proceeded to fall asleep again.
--- NOTE | 2021-06-29 13:47 | PT.IPTN ---
Current Diagnoses Spondylolisthesis, lumbar region (06/28/21) Spinal stenosis, lumbar region without neurogenic claudication (06/28/21) Arthrodesis status (06/28/21) Surgery Performed Operation Date: 06/28/21 12:15 Actual Procedures p L4-5 TLIF, L5-S1 lumbar HWR, exploratin of fusion, repeat laminectomy, reinsertion of hardware L4-S1 w. FRANNIE Altamirano MD Physical Therapy Treatment Note M2 PT-IP Current Condition Start: 06/29/21 12:10 Freq: NEEDED Status: Active Protocol: Document 06/29/21 09:57 AB (Rec: 06/29/21 12:22 AB [email or web address]) Physical Therapy Current Condition Current Condition Evaluation Date 06/29/21 Treatment Diagnosis s/p L4-5,L5S1 TLIF; difficulty in walking Onset Date 06/28/21 M3 PT-IP Subjective Start: 06/29/21 12:10 Freq: NEEDED Status: Active Protocol: Document 06/29/21 13:47 AB (Rec: 06/29/21 14:33 AB [email or web address]) Subjective Physical Therapy Visit Type Type Treatment Note Visit Start Time 13:47 Visit Stop Time 14:12 Total Visit Minutes 25 Number of RESEARCH PHARMACIST Visits 0 Physical Therapy Visit Comments Patient Comments agreeable to do PT M4 PT-IP Mobility and Gait Start: 06/29/21 12:10 Freq: NEEDED Status: Active Protocol: Document 06/29/21 13:47 AB (Rec: 06/29/21 14:33 AB [email or web address]) PT-Bed Mobility Assessment Rolling Type of Rolling Log Rolling Level of Assist Maximal Assistance Supine to Sit Supine to Sit Maximum Assistance,Bedrails PT-Transfer Assessment Sit to and From Stand Sit to and from Stand Maximum Assistance,1 Person Assistance,Use of Upper Extremities Equipment Transfer Assistive Device Gait Belt,Front Wheeled Walker Orthotic/Prosthetic Devices or Brace: No Transfers Transfer Destination Chair Transfer Technique Stand Step Pivot Transfer Ability Level of Assist Moderate Assistance,Maximum Assistance,1 Person Assistance ,Use of Upper Extremities Comments Mobility Comments pt continues to be sleepy but agreed to do PT. completed supine to sit log roll max A and max cues and pt used bedrail to assist. able to sit on EOB min A with increase posterior trunk lean and cued to reposition. completed sit to stand max A and max cues and step transfer to chair mod to max A and max cues. pt let go of FWW midway transfer to reach for arm rest requiring max A to position on chair. educated pt on use of FWW and safety . pt can be impulsive and max cues required for safety. pt agreed to ambulated and completed using FWW ~ 20 ft in room min to mod A and cues. presents with unsteady gait, decrease LE elevation during walking and decrease safety awareness. pt agreed to sit on chair. positioned on chair . call light and table placed within reach. ice pack provided. Gait Assessment Gait Gait Assistance Required: Minimum Assistance,Moderate Assistance,1 Person Assist Distance (Feet) 20 Able to Maintain Weight Bearing Status Yes During Gait Assistive Devices Assistive Device Gait Belt,Front Wheeled Walker Orthotic/Prosthetic Devices or Brace: No Gait Deviations General Gait Pattern Decreased Stride Length, Decreased Feet Clearance Factors Limiting Gait Function Factors Limiting Gait Function Decreased Activity Tolerance, Decreased Strength,Difficulty Following Directions,Limited Range of Motion,Pain,Poor Balance,Poor Safety Awareness, Respiratory Distress M5 PT-IP Objective Assessments Start: 06/29/21 12:10 Freq: NEEDED Status: Active Protocol: Document 06/29/21 09:57 AB (Rec: 06/29/21 12:22 AB [email or web address]) Orientation Orientation/Cognition Level of Alertness Confusional State Orientation Name,Place,Situation Safety Awareness Decreased Safety Awareness Memory Description Short Term Impaired,Employment Clerk Impaired Gross Range of Motion Lower Extremity ROM Assessment Within Functional Limits Strength Lower Extremity Strength Assessment Bilaterally Impaired Hip 3+/5 Knee 3+/5 Sensation Assessment Sensation Gross Sensation WNL Muscle Tone Muscle Tone WNL Yes M6 PT-IP Treatment Start: 06/29/21 12:10 Freq: NEEDED Status: Active Protocol: Document 06/29/21 13:47 AB (Rec: 06/29/21 14:33 AB [email or web address]) Physical Therapy Treatment Education Education Provided Precautions,Safety M7 PT-IP Assessment and Plan Start: 06/29/21 12:10 Freq: NEEDED Status: Active Protocol: Document 06/29/21 13:47 AB (Rec: 06/29/21 14:33 AB [id number]) PT Summary Assessment and Plan Potential Rehabilitation Potential Fair Summary Impairments Pain,ROM,Strength,Balance, Coordination,Sensation,Tone, Cognition,Bed Mobility, Transfers,Gait,Activity Tolerance Progress Towards Goals Slow Progress due to Activity Tolerance,Slow Progress - Other Assessment Summary pt requiring max A with mobility and requires max cues with all tasks. pt plans to go home with her son to assist her. will assess progress. will conduct caregiver training when appropriate. pt also has stairs to enter the house and will need to complete stair climbing training prior to d/c. Goals Bed Mobility Goal Standby Assistance Transfer Goal Standby Assistance,Front Wheeled Walker Gait Goal Standby Assistance,Front Wheel Walker Gait Distance 200 Other Goals up/down 2 platform steps using FWW CGA Days to Meet Goals 5 Frequency of Treatment Frequency Of Treatment Twice a Day Treatment Plan Physical Therapy Treatment Plan Bed Mobility Training,Transfer Training,Gait Training, Therapeutic Exercise,Balance Retraining,Post Op Education, Discharge Planning,Hot or Cold Pack,Neuromuscular Re-ed, Coordination Retraining,Manual Therapy Precautions Lumbar Precautions Log Roll,No Twisting,Limit Bending,Lifting Restriction of 10 lbs,Gait Belt above Incisional Area Recommendations To Nursing Amount of Assist Needed 1 Person Assist Discharge Recommendations PT Discharge Recommendations Home with 20/10 Assist Available,Home Health,SNF Rehab,Home vs SNF Transportation Needs at Discharge Private Vehicle,Wheelchair/ Cabulance
--- NOTE | 2021-06-29 16:13 | PC.NURSE ---
Day shift: Per ICU telephone supervisor Pt having runs of V-tach. Dr Simmons informed. Mag rider per MAR infusing. Pt asleep and easy to awaken w/ no c/o pain or discomfort.
[2021-06-29 19:40] VITALS: BP 141/73; PULSE 71; RESP 18; TEMP 36.3; O2SAT 98
[2021-06-29] MEDS: SENNOSIDES 8.6 MG TABLET 17.2 MG PO (21:28)
[2021-06-29] MEDS: SODIUM CHLORIDE 0.9% FLUSH 10 ML IV (21:29)
--- NOTE | 2021-06-29 22:26 | PC.NURSE ---
Addendum entered by Anjelica Cisse R.N. 06/30/21 06:30: Catheter d'cd at 0625. Patient instructed in sx/prevention of UTI. Original Note: Patient is alert and oriented. Breath sounds CTA; using oxygen at 1L/min per NC overnight as has history of sleep apnea. HRR. BP elevated at 141/73 which is consistent with previous recordings. Denies nausea. BT hypoactive and states she has not passed flatus since surgery; medicated with Colace and Senna. Indwelling catheter is patent; urine is clear, jhoana. Is able to turn herself in bed. Dressing to back is CDI. Was up earlier today with PT using a walker and 1 assist but gait not assessed at this time. CMS is intact bilaterally. Foot SCD's put on at change of shift. Denied any pain at time of assessment. Fall risk score is high and bed alarm is activated.
[2021-06-30] VITALS: BP 122/68; PULSE 81; RESP 16; TEMP 36.1; O2SAT 95
[2021-06-30] MEDS: OXYCODONE IR 5 MG TABLET 10 MG PO ×2 (04:04→08:59)
[2021-06-30 04:10] VITALS: BP 136/86; PULSE 83; RESP 16; TEMP 35.9; O2SAT 94
[2021-06-30] MEDS: ACETAMINOPHEN 325 MG TABLET 650 MG PO (06:03)
[2021-06-30 08:37] VITALS: BP 145/72; PULSE 92; RESP 20; TEMP 36.1; O2SAT 94
[2021-06-30] MEDS: hydroCHLOROthiazide 25 MG TABLET PO (08:59)
[2021-06-30] MEDS: PANTOPRAZOLE DR 40 MG TABLET PO (08:59)
[2021-06-30] MEDS: GABAPENTIN 600 MG TABLET PO (08:59)
[2021-06-30] MEDS: VALSARTAN 80 MG TABLET 160 MG PO (08:59)
[2021-06-30] MEDS: QUETIAPINE 25 MG TABLET PO (08:59)
[2021-06-30] MEDS: buPROPion XL 150 MG TAB 450 MG PO (08:59)
[2021-06-30] MEDS: SODIUM CHLORIDE 0.9% FLUSH 10 ML IV (09:02)
--- NOTE | 2021-06-30 10:26 | PT.IPTN ---
Current Diagnoses Spondylolisthesis, lumbar region (06/28/21) Spinal stenosis, lumbar region without neurogenic claudication (06/28/21) Arthrodesis status (06/28/21) Surgery Performed Operation Date: 06/28/21 12:15 Actual Procedures p L4-5 TLIF, L5-S1 lumbar HWR, exploratin of fusion, repeat laminectomy, reinsertion of hardware L4-S1 w. FRANNIE Altamirano MD Physical Therapy Treatment Note M2 PT-IP Current Condition Start: 06/29/21 12:10 Freq: NEEDED Status: Active Protocol: Document 06/30/21 10:18 BC (Rec: 06/30/21 10:26 BC [id number]) Physical Therapy Current Condition Current Condition Evaluation Date 06/29/21 Treatment Diagnosis s/p L4-5,L5S1 TLIF; difficulty in walking Onset Date 06/28/21 M3 PT-IP Subjective Start: 06/29/21 12:10 Freq: NEEDED Status: Active Protocol: Document 06/30/21 10:18 BC (Rec: 06/30/21 10:26 BC [id number]) Subjective Physical Therapy Visit Type Type Treatment Note Visit Start Time 09:40 Visit Stop Time 10:05 Total Visit Minutes 25 Number of FLAT SURFACER JEWEL Visits 0 Physical Therapy Visit Comments Patient Comments Pt and son, King, in room and agreeable to PT. Patient Goals To d/c home today Therapy Pain Assessment Pain Present Pain Present Pain Reported FLACC Pain Scale Face No particular expression Legs Normal position; relaxed Activity Quiet, moves easily Cry No cry (awake or asleep) Consolability Content, relaxed FLACC Total 0 Location back Intensity 5 Scale Used Numeric (0 - 10) Description Aching Pain Management Techniques Distraction,Timing of Activity with Medications M4 PT-IP Mobility and Gait Start: 06/29/21 12:10 Freq: NEEDED Status: Active Protocol: Document 06/30/21 10:18 BC (Rec: 06/30/21 10:26 BC [id number]) PT-Bed Mobility Assessment Rolling Type of Rolling Log Rolling Level of Assist Contact Guard Assistance Supine to Sit Supine to Sit Minimal Assistance Scooting Scooting to Edge of Bed Independent PT-Transfer Assessment Sit to and From Stand Sit to and from Stand Contact Guard Assistance,1 Person Assistance,Use of Upper Extremities Equipment Transfer Assistive Device Gait Belt,Front Wheeled Walker Orthotic/Prosthetic Devices or Brace: No Transfers Transfer Destination Chair Transfer Technique Stand Step Pivot Transfer Ability Level of Assist Contact Guard Assistance,1 Person Assistance,Use of Upper Extremities Comments Mobility Comments STS x2 reps from EOB and recliner chair. CGA for safety only. Pt demonstrating safe technique without vc's. Bed mobility Pt initiated immediately with log roll technique and no vc's. Overall needing just min A due to leg catching on fitted sheet of bed, otherwise transferring with good technique. Gait Assessment Gait Gait Assistance Required: Contact Guard Assist,1 Person Assist Distance (Feet) 30 Able to Maintain Weight Bearing Status Yes During Gait Assistive Devices Assistive Device Gait Belt,Front Wheeled Walker Orthotic/Prosthetic Devices or Brace: No Gait Deviations General Gait Pattern Decreased Stride Length, Decreased Feet Clearance Factors Limiting Gait Function Factors Limiting Gait Function Decreased Strength,Difficulty Following Directions,Limited Range of Motion,Pain,Poor Balance,Poor Safety Awareness, Respiratory Distress Comments Gait Comments 20' x1 and 30' x1 with FWW. No overt LOB. Good safety awareness navigating crowded environment. Stair Climbing Assessment Evaluation Level of Assist On Stairs Contact Guard Assistance Devices Stair Climbing Assistive Devices Front Wheel Walker Technique/Endurance Stair Climbing Direction Ascend and Descend Stair Climbing Technique Step to Step Number of Steps Climbed 2 Comments Stair Climbing Comments Stair training to platform step. Son reviewed with PT how they completed this last year due to similar spine sx. She was able to do so with same technique and CGA using FWW on platform. No railing at home. PT-Balance Assessment Sitting Balance and Reactions Static Sitting Balance Ability Good Dynamic Sitting Balance Ability Good Standing Balance and Reactions Static Standing Balance Ability Fair Dynamic Standing Balance Ability Fair Device Used FWW M5 PT-IP Objective Assessments Start: 06/29/21 12:10 Freq: NEEDED Status: Active Protocol: Document 06/29/21 09:57 AB (Rec: 06/29/21 12:22 AB [id number]) Orientation Orientation/Cognition Level of Alertness Confusional State Orientation Name,Place,Situation Safety Awareness Decreased Safety Awareness Memory Description Short Term Impaired,Community Service Director Impaired Gross Range of Motion Lower Extremity ROM Assessment Within Functional Limits Strength Lower Extremity Strength Assessment Bilaterally Impaired Hip 3+/5 Knee 3+/5 Sensation Assessment Sensation Gross Sensation WNL Muscle Tone Muscle Tone WNL Yes M6 PT-IP Treatment Start: 06/29/21 12:10 Freq: NEEDED Status: Active Protocol: Document 06/30/21 10:18 BC (Rec: 06/30/21 10:26 [id number]) Physical Therapy Treatment Education Education Provided Precautions,Safety Other Treatments Other Treatment Performed Answered questions of Pt/son regarding home activities. Encouraged short ambulation distances in the home with FWW when she first d/c. Reviewed spinal precautions and log roll. M7 PT-IP Assessment and Plan Start: 06/29/21 12:10 Freq: NEEDED Status: Active Protocol: Document 06/30/21 10:18 BC (Rec: 06/30/21 10:26 [id number]) PT Summary Assessment and Plan Potential Rehabilitation Potential Good Status of Condition at Evaluation Stable Summary Impairments Pain,ROM,Strength,Balance, Coordination,Sensation,Tone, Cognition,Bed Mobility, Transfers,Gait,Activity Tolerance Progress Towards Goals Progressing Toward Goals Assessment Summary Pt has demonstrated good improvement in mobility today. Son also agrees. Overall CGA provided for safety with ambulation, transfers and stair mgmt. Son and Pt agree she feels prepared to d/c home . Son to be home with her 20/10 initially. Goals Bed Mobility Goal Standby Assistance Transfer Goal Standby Assistance,Front Wheeled Walker Gait Goal Standby Assistance,Front Wheel Walker Gait Distance 200 Other Goals up/down 2 platform steps using FWW CGA Days to Meet Goals 5 Frequency of Treatment Frequency Of Treatment Twice a Day Treatment Plan Physical Therapy Treatment Plan Bed Mobility Training,Transfer Training,Gait Training, Therapeutic Exercise,Balance Retraining,Post Op Education, Discharge Planning,Hot or Cold Pack,Neuromuscular Re-ed, Coordination Retraining,Manual Therapy Precautions Lumbar Precautions Log Roll,No Twisting,Limit Bending,Lifting Restriction of 10 lbs,Gait Belt above Incisional Area Recommendations To Nursing Amount of Assist Needed 1 Person Assist Discharge Recommendations PT Discharge Recommendations Home with 20/10 Assist Available,Home Health Transportation Needs at Discharge Private Vehicle
--- NOTE | 2021-06-30 10:55 | P.DS_ITS ---
History of Present Illness History of Present Illness Chief complaint: INPT Narrative: See H and P in chart Discharge Providers Provider Date of admission: 06/28/21 10:12 Discharge Date: 06/30/21 Primary care physician: STACY Johnson Consults: 06/28/21 18:06 Consult to Occupational Therapy Evaluate & Treat Comment: Physician Instructions: Evaluate and treat Consult to Physical Therapy Evaluate & Treat Comment: Physician Instructions: Evaluate and Treat Discharge provider: India Fisher MD Summary Hospital Course Discharge Diagnosis: Spinal stenosis status post fusion Hospital Course: Patient taken the operating room she underwent a decompression and fusion. She initially had some issues with pain control but that improved. She was mobilized with physical therapy. She was noted to be safe getting in and out of bed and ambulating and mobilizing. She was neurologically intact. She tolerated therapy. She was able to void spontaneously. She did not have significant nausea. She was felt to be safe and stable for discharge and was discharged to home. Status at Discharge Cognitive/behavioral status at discharge: at baseline, oriented Functional status at discharge: uses cane/walker Overall status at discharge: patient is progressing back to baseline Time Spent with Patient Time spent: Less than 30 minutes Exam Vital Signs (past 8 hours): - 06/30/21 04:10 06/30/21 08:37 Temperature 96.7 F L 97.0 F L Pulse Rate 83 92 H Respiratory Rate 16 20 Blood Pressure 136/86 145/72 H Pulse Oximetry 94 94 Oxygen Delivery Method Room Air,Nasal Cannula Oxygen Flow Rate 0 Narrative Exam Narrative: Calf soft in bilateral lower extremities her dressing is dry she has some mild numbness in the medial aspect of her thighs bilaterally. Abdomen soft and benign she is alert and oriented dressing is dry. Objective Labs Result Diagrams: 06/29/21 05:56 [facility]LY [facility], [facility] Medical History Chronic diarrhea Fecal incontinence Internal hemorrhoids Neck pain with history of cervical spinal surgery Neuropathy Poor balance Recent urinary tract infection Spinal stenosis of lumbar region Spondylolisthesis, lumbar region Tortuous colon Surgical History History of colonoscopy History of lumbar spinal fusion (06/06/20) S/P epidural steroid injection Status post cervical spinal fusion (05/25/14) Social History household members: none Smoking Status: Former smoker alcohol intake: current Discharge Assessment & Plan Assessment and Plan Assessment: Improving status post a decompression and fusion. Plan of Treatment: Discharge to home and keep previously scheduled follow-up. Work with physical therapy and work to regain progressive range of motion and strengthening. Discharge Plan Discharge Plan Patient Disposition: Home Discharge orders & Medications Prescriptions: New oxycodone 5 mg Tablet 10 mg PO Q3HR PRN (Reason: Pain, Severe (7-10)) Qty: 40 0RF Continued gabapentin 600 mg tablet 600 mg PO BID 0RF pantoprazole 40 mg tablet,delayed release (DR/EC) 40 mg PO DAILY 0RF hydrochlorothiazide 25 mg tablet 25 mg PO DAILY 0RF bupropion HCl 300 mg tablet extended release 24 hr 300 mg PO DAILY 0RF Rx Instructions: Takes 450 mg q am bupropion HCl 150 mg tablet extended release 24 hr 150 mg PO DAILY 0RF Label Comments: takes 450 mg qam quetiapine 25 mg tablet 25 mg PO DAILY 0RF Label Comments: hasn't started yet valsartan 160 mg tablet 160 mg PO DAILY 0RF budesonide 3 mg Capsule,Delayed,Extend.Release 9 mg PO PRN PRN (Reason: Anxiety) 0RF loperamide 2 mg Capsule 4 mg PO QID 0RF Label Comments: Two tabs in the morning, noon, early evening and bedtime acetaminophen 325 mg Tablet 650 mg PO Q4HR PRN (Reason: pain) Qty: 30 0RF Follow up/Referrals: Chau Altamirano MD [Physician] - (10-14 days for postoperative visit) Cailin Tee ARNP [Primary Care Provider] - Diet/Activity/Treatments Diet: Diet as Tolerated Activity: Walk multiple times a day. Cold/Heat Therapy: Apply ice to back multiple times a day. Other treatments: Medications: -OTC Tylenol 500 mg 1 tablet every 4 hours as needed for pain/fever. Max 6 tablets per day. -Oxycodone 5 mg take 1-2 tablets every 4 hours as needed for moderate-severe pain (narcotic pain medication). -As needed medications: -Ducolax and /or MiraLax as needed for constipation from narcotic pain medications. -Pepcid AC as needed for stomach upset. Dressing/Wound care: -Keep dressing in place until postoperative follow-up office visit. -Okay to shower. Keep wound out of direct water stream. Can use PressNSeal plastic wrap to protect from shower stream. No soaking or submerging until all the scabs fall off (approximately 6 weeks). -Please call the office if dressing becomes wet, soiled, or saturated. Activities: -Limit bending, lifting, twisting x6 weeks. No deep bending (more than 90 degrees) or twisting at the waist. No lifting > 20 pounds. -Walk frequently. -Weight-bearing as tolerated. Use front wheeled walker, and progress to cane when safe. -Continue with home exercises as directed by your physical therapist. -Ice your incision as needed for pain/inflammation/swelling. Protect your skin with a folded pillowcase. Follow-up: -Follow-up with your surgeon or PA in the office in 10-14 days after surgery. -Follow-up with your surgeon 6 weeks postoperatively. Call the office if you have chest pain, shortness of breath, significant swelling that will not resolve with elevating, fever over 101?, significantly worsening pain. [facility]: [phone] Skin/Wound/Dressing Care Report to your healthcare provider any signs of infection, such as:: chills, fever, night sweats, unusual drainage and unusual redness Visit Report/Discharge Packet Instructions: DI for Transforaminal Lumbar Interbody Fusion Stand Alone Forms: Surgery Discharge Discharge Data Primary Care Provider: Cailin Tee
--- NOTE | 2021-06-30 12:32 | PC.NURSE ---
Day shift: Paperwokr signed and all questions answered. Pt has all personal belongings. script for oxycodone went to Pt's pharmacy electronic. Pt's Son in room for d/c teachings. Dressing remains CDI. CMS intact. Pt voided approx 500mls just prior to d/c. Left unit at 1230 via WC. Her Son is driving her home.
== END 2021-06-30 12:34 | disposition home or self-care (01) | DRG 454 ==
PROVIDERS: Admitting Provider Orthopaedic Surgery Orthopaedic Surgery of the Spine; PCP Registered Nurse; Referring Provider Orthopaedic Surgery Orthopaedic Surgery of the Spine; Visit Provider Orthopaedic Surgery Orthopaedic Surgery of the Spine
PROC: 0SP304Z Removal of Internal Fixation Device from Lumbosacral Joint, Open Approach (ICD-10-PCS; principal; 2021-06-28 12:15)
DX: M48.062 Spinal stenosis, lumbar region with neurogenic claudication (principal); T84.038A Mechanical loosening of other internal prosthetic joint, initial encounter; M96.0 Pseudarthrosis after fusion or arthrodesis; M43.16 Spondylolisthesis, lumbar region; M54.16 Radiculopathy, lumbar region; M96.1 Postlaminectomy syndrome, not elsewhere classified; K21.9 Gastro-esophageal reflux disease without esophagitis; I10 Essential (primary) hypertension; F32.A Depression, unspecified; Z87.891 Personal history of nicotine dependence; Z98.1 Arthrodesis status; Z20.822 Contact with and (suspected) exposure to COVID-19
CPT/HCPCS: 36415; 72100; 76000; 85014; 85018; 87635; 97162; 97530; C1713; C1831; C9290; J0171; J0690; J1170; J2250; J2405; J2704; J3010; J3410

== ENCOUNTER 2021-06-30 19:27 | Observation (INO) | payer OTHER, SELFPAY ==
[2021-06-28 18:10] VITALS: BMI 39.0
[2021-06-30] VITALS (11 sets, daily range): BP systolic 135–149; BP diastolic 68–82; PULSE 62–100; RESP 18–20; TEMP 36.1; O2SAT 93–97
--- NOTE | 2021-06-30 21:19 | PC.NURSE ---
Pt transferred from wheelchair to stretcher with x3 RN assist. Dressing to lower back noted, clean/dry/intact.
--- NOTE | 2021-06-30 21:43 | PC.NURSE ---
Pt intermittently falling asleep, oxygen saturation noted to drop to 88%, reports sleep apnea with a cpap at home, denies SOB, 2L NC applied.
[2021-06-30 23:39] LABS: Appearance Urine UA CLEAR; Bilirubin Urine UA NEGATIVE (NEGATIVE); Glucose Urine UA NEGATIVE (Negative); Ketones Urine UA TRACE (NEGATIVE); Leukocyte Esterase Urine UA TRACE (NEGATIVE); Nitrite Urine UA NEGATIVE (Negative); Occult Blood Urine UA 2+ (Negative); Protein Urine UA NEGATIVE (Negative); Urobilinogen Urine UA 0.2 E.U./dL (0.2)
[2021-06-30 23:42] LABS: Color Urine UA Dark Yellow
[2021-06-30 23:45] LABS: Bacteria Urine Few (2-10); Culture Indicated Urine Specimen Cultured; RBC Urine 0-1/HPF (0-5/HPF); Squamous Epithelial Cell Urine 1-5 /HPF (0-5/HPF); WBC Urine 0-1/HPF (0-5/HPF)
[2021-07-01] VITALS (9 sets, daily range): BP systolic 140–189; BP diastolic 65–78; PULSE 74–85; RESP 16–18; TEMP 36.2–37.2; O2SAT 93–98; BMI 39.0
--- NOTE | 2021-07-01 00:17 | ED_ITS ---
HPI - Fall General Chief Complaint: Fall Stated Complaint: Fall Time Seen by Provider: 07/01/21 00:07 Mode of arrival: Family Vehicle History of Present Illness HPI Narrative: Patient is a female with history of hypertension depression obesity presenting today with increasing falls. She had a spinal fusion on June [address] Ryan she was discharged earlier today. Son states that there was talk of rehab but they thought she was okay to go home. She has fallen twice at home since her discharge. Once he said she rolled off the couch the 2nd time she was in the bathroom. Son called medics. He thinks that she may be overmedicated oxycodone. She was taking 2 tablets frequently which may be the cause of her weakness and falls. She has not had anything in the emergency department and has been here for numerous hours. She has been comfortable and lying on her side. She has no changes in bowel or bladder habits. Related Data Home Medications Medication Instructions Recorded Confirmed bupropion HCl 150 mg 24 hr tablet, 150 mg PO DAILY 02/22/20 07/01/21 extended release bupropion HCl 300 mg 24 hr tablet, 300 mg PO DAILY 02/22/20 07/01/21 extended release gabapentin 600 mg tablet 600 mg PO BID 02/22/20 07/01/21 hydrochlorothiazide 25 mg tablet 25 mg PO DAILY 02/22/20 07/01/21 pantoprazole 40 mg tablet,delayed 40 mg PO DAILY 02/22/20 07/01/21 release budesonide 3 mg 9 mg PO PRN PRN 06/05/20 07/01/21 capsule,delayed,extended release loperamide 2 mg capsule 4 mg PO QID 06/05/20 07/01/21 quetiapine 25 mg tablet 25 mg PO DAILY 06/05/20 07/01/21 valsartan 160 mg tablet 160 mg PO DAILY 06/05/20 07/01/21 Previous Rx's Medication Instructions Recorded acetaminophen 325 mg tablet 650 mg PO Q4HR PRN #30 tab 06/08/20 oxycodone 5 mg tablet 10 mg PO Q3HR PRN #40 tab 06/30/21 Allergies Allergy/AdvReac Type Severity Reaction Status Date / Time adhesive tape AdvReac Mild Red, itchy Verified 06/30/21 19:38 Review of Systems Review of Systems Narrative: GENERAL: Denies chills, fatigue, malaise, fever, sweats, travel HEENT: Denies sinus pain, ear pain, sore throat, difficulty swallowing, neck pain RESPIRATORY: Denies dyspnea, cough, wheezing, hemoptysis, sputum. CARDIOVASCULAR: Denies chest pain, palpitations, orthopnea, edema GASTROINTESTINAL: Denies nausea, vomiting, abdominal pain, diarrhea, constipation, melena. : Denies dysuria, frequency, incontinence, hematuria, urinary retention, flank pain. MUSCULOSKELETAL: Recent lumbar fusion SKIN: No rash, no erythema, no pruritus NEUROLOGIC: + fall PSYCHIATRIC: No concerning psychosocial issues. 12 point review of systems is negative except for those stated above and HPI Patient History Medical History Chronic diarrhea Fecal incontinence Internal hemorrhoids Neck pain with history of cervical spinal surgery Neuropathy Poor balance Recent urinary tract infection Spinal stenosis of lumbar region Spondylolisthesis, lumbar region Tortuous colon Surgical History History of colonoscopy History of lumbar spinal fusion (06/06/20) S/P epidural steroid injection Status post cervical spinal fusion (05/25/14) Social History household members: none Smoking Status: Former smoker alcohol intake: current Smoking Status: Former smoker alcohol intake frequency: a few times a week Substance Use Type: does not use Exam Initial Vital Signs Initial Vital Signs: Vital Signs Temperature 97.0 F L 06/30/21 19:34 Pulse Rate 100 H 06/30/21 19:34 Respiratory Rate 18 06/30/21 19:34 Blood Pressure 135/82 06/30/21 19:34 Pulse Oximetry 96 06/30/21 19:34 GENERAL: Alert 70-year-old female no acute distress resting on right side HEENT: Head atraumatic,EOMI, pupils reactive, face symmetric, moist mucous membranes CARDIOVASCULAR: Regular rate and rhythm without murmurs, rubs or gallops. RESPIRATORY: Breath sounds equal bilaterally, no wheezes rales or rhonchi. ABDOMEN: Soft, nontender. Normoactive bowel sounds all 4 quadrants. No guarding or rebound. BACK: Dressing placed clean and dry EXTREMITIES: Normal range of motion, no clubbing or edema. Neurovascularly intact NEUROLOGICAL: Alert and oriented x4. Moving all extremities SKIN: Warm, dry, no laceration, no petechiae, no rashes or lesions. Course Orders Ordered: ED Orders 06/30/21 21:20 Consult to TRANSPORTATION SECURITY OFFICER - Punchboard Stuffer Stat 06/30/21 23:28 Urinalysis and Microscopic Stat Urine Culture Stat 07/01/21 00:18 CT head/brain wo con Stat 07/01/21 00:23 EKG-12 Lead Stat 07/01/21 01:13 CBC Auto Diff [Complete Blood Count AUTO DIFF] Stat CMP [Comprehensive Metabolic Panel] Stat 07/01/21 01:42 COVID19 -Nasal swab/Pre-Proc Stat Influenza Virus Vaccine (Influenza Hd Vaccine 0.7 Ml Syringe) 0.7 ml IM .ONCE ONE Stop: 07/01/21 09:01 Oxycodone HCl (Oxycodone Ir 10 Mg Tablet) 10 mg PO Q3HR PRN PRN Reason: Pain, Severe (7-10) Last Admin: 07/01/21 03:46 Dose: 10 mg Documented by: [facility] Discontinued Medications Gabapentin (Gabapentin 600 Mg Tablet) 600 mg PO NOW ONE Stop: 07/01/21 03:44 Last Admin: 07/01/21 03:46 Dose: 600 mg Documented by: [facility] Vital Signs Vital signs: Vital Signs - 8 hr 06/30/21 21:05 06/30/21 21:20 06/30/21 21:30 Temperature Pulse Rate 86 85 87 Respiratory Rate 18 Blood Pressure Pulse Oximetry 94 95 94 06/30/21 21:44 06/30/21 22:00 06/30/21 22:06 Temperature Pulse Rate 89 94 H Respiratory Rate 20 Blood Pressure 149/68 H Pulse Oximetry 94 94 06/30/21 22:15 06/30/21 22:30 06/30/21 23:00 Temperature Pulse Rate 92 H 62 87 Respiratory Rate 20 Blood Pressure 149/68 H Pulse Oximetry 97 95 93 06/30/21 23:30 07/01/21 00:00 07/01/21 00:30 Temperature Pulse Rate 88 85 82 Respiratory Rate Blood Pressure Pulse Oximetry 97 96 96 07/01/21 01:44 07/01/21 01:45 Temperature 98.2 F Pulse Rate 84 Respiratory Rate Blood Pressure 162/78 H Pulse Oximetry 98 MDM - Fall Lab Data Result diagrams: 07/01/21 01:13 07/01/21 01:13 Labs: Lab Results 06/30/21 07/01/21 07/01/21 Range/Units 23:28 01:13 01:13 WBC 10.7 (4.5-11.0) X10^3/uL RBC 3.36 L (4.0-5.2) X10^6/uL Hgb 11.3 L (12.0-16.0) g/dL Hct 32.3 L (36-46) % MCV 96.1 (80-100) fL MCH 33.5 (26-34) PG MCHC 34.9 (30-36) % RDW 14.3 (11.6-14.8) % Plt Count 177 (150-400) X10^3/uL Neut % (Auto) 84.0 H (50-75) % Lymph % (Auto) 10.0 L (25-40) % [place] % (Auto) 5.6 (3-14) % Eos % (Auto) 0.2 L (2-4) % Baso % (Auto) 0.2 (0-2) % Neut # (Auto) 9000 H (9219-9187) /uL Lymph # (Auto) 1100 (5393-4630) /uL [place] # (Auto) 600 (0-900) /uL Eos # (Auto) 0 (0-450) /uL Baso # (Auto) 0 (0-100) /uL Sodium 129 L (137-145) mmol/L Potassium 3.2 L (3.4-5.1) mmol/L Chloride 91 L (98-107) mmol/L Carbon Dioxide 32 (22-32) mmol/L BUN 8 (7-17) mg/dL Creatinine 0.62 (0.52-1.04) mg/dL Estimated GFR > 60.0 (>60) mL/min BUN/Creatinine Ratio 12.9 (6-22) Glucose 98 (80-110) mg/dL Calcium 8.6 (8.4-10.2) mg/dL Total Bilirubin 1.5 H (0.2-1.3) mg/dL AST 53 H (14-36) IU/L ALT 20 (<35) IU/L Alkaline Phosphatase 59 (38-126) U/L Total Protein 7.1 (6.3-8.2) g/dL Albumin 3.5 (3.5-5.0) g/dL Globulin 3.6 (1.7-4.1) g/dL Albumin/Globulin Ratio 1.0 (1.0-2.8) Urine Color Dark yellow Urine Appearance Clear Urine pH 6.0 (4.5-8.0) Ur Specific [place] 1.010 (1.000-1.035) Urine Protein Negative (Negative) Urine Glucose (UA) Negative (Negative) g/dL Urine Ketones Trace H (NEGATIVE) Urine Occult Blood 2+ H (Negative) Urine Nitrate Negative (Negative) Urine Bilirubin Negative (NEGATIVE) Urine Urobilinogen 0.2 (0.2) E.U./dL Ur Leukocyte Esterase Trace H (NEGATIVE) Urine RBC 0-1/hpf (0-5/HPF) Urine WBC 0-1/hpf (0-5/HPF) Ur Squamous Epith Cells 1-5 /hpf (0-5/HPF) Urine Bacteria Few (2-10) H (None) Ur Culture Indicated? Specimen cultured SARS-CoV-2 (PCR) (Negative) 07/01/21 Range/Units 01:42 WBC (4.5-11.0) X10^3/uL RBC (4.0-5.2) X10^6/uL Hgb (12.0-16.0) g/dL Hct (36-46) % MCV (80-100) fL MCH (26-34) PG MCHC (30-36) % RDW (11.6-14.8) % Plt Count (150-400) X10^3/uL Neut % (Auto) (50-75) % Lymph % (Auto) (25-40) % [place] % (Auto) (3-14) % Eos % (Auto) (2-4) % Baso % (Auto) (0-2) % Neut # (Auto) (8693-4290) /uL Lymph # (Auto) (5073-4192) /uL [place] # (Auto) (0-900) /uL Eos # (Auto) (0-450) /uL Baso # (Auto) (0-100) /uL Sodium (137-145) mmol/L Potassium (3.4-5.1) mmol/L Chloride (98-107) mmol/L Carbon Dioxide (22-32) mmol/L BUN (7-17) mg/dL Creatinine (0.52-1.04) mg/dL Estimated GFR (>60) mL/min BUN/Creatinine Ratio (6-22) Glucose (80-110) mg/dL Calcium (8.4-10.2) mg/dL Total Bilirubin (0.2-1.3) mg/dL AST (14-36) IU/L ALT (<35) IU/L Alkaline Phosphatase (38-126) U/L Total Protein (6.3-8.2) g/dL Albumin (3.5-5.0) g/dL Globulin (1.7-4.1) g/dL Albumin/Globulin Ratio (1.0-2.8) Urine Color Urine Appearance Urine pH (4.5-8.0) Ur Specific [place] (1.000-1.035) Urine Protein (Negative) Urine Glucose (UA) (Negative) g/dL Urine Ketones (NEGATIVE) Urine Occult Blood (Negative) Urine Nitrate (Negative) Urine Bilirubin (NEGATIVE) Urine Urobilinogen (0.2) E.U./dL Ur Leukocyte Esterase (NEGATIVE) Urine RBC (0-5/HPF) Urine WBC (0-5/HPF) Ur Squamous Epith Cells (0-5/HPF) Urine Bacteria (None) Ur Culture Indicated? SARS-CoV-2 (PCR) Negative (Negative) Imaging Data CT scan - head: Radiologist's Impression: PROCEDURE:? CT HEAD/BRAIN WO CON ? INDICATIONS:? FREQUENT FALLS ? TECHNIQUE:? Noncontrast 4.5 mm thick angled axial sections acquired from the foramen magnum to the vertex, with coronal and sagittal reformats.? For radiation dose reduction, the following was used:? automated exposure control, adjustment of mA and/or kV according to patient size.? ? COMPARISON:? None. ? FINDINGS:? Image quality:? There is motion artifact limiting evaluation.? ? CSF spaces:? Basal cisterns are patent.? No extra-axial fluid collections.? There is mild cerebral volume loss, with resultant ventricular and sulcal prominence.? ? Brain:? No intracranial hemorrhage, mass, or mass effect.? There are subcortical, periventricular and deep white matter hypodensities consistent with mild chronic small vessel ischemic changes.? The garcia-white matter junction appears preserved.? There is intracranial internal carotid artery atherosclerosis.? ? Skull and face:? Calvarium and visualized facial bones appear intact, without suspicious lesions.? ? Sinuses:? Visualized sinuses and mastoids are clear.? ? IMPRESSION:? ? 1. No acute intracranial abnormality. ? 2. Mild chronic white matter small vessel ischemic changes and cerebral volume loss.? ? ? Dictated by: Martell Tong M.D. on 07/01/2021 at 1:04 ? ? Approved by: Martell Tong M.D. on 07/01/2021 at 1:06 ? MDM Narrative Medical decision making narrative: Patient was just released from the hospital today having frequent falls at home. She clearly needs rehab and is not safe to be at. It may or may not be related to medication however patient has a history of obesity and will likely need more strength training. She does have a few bacteria in her urine recommend waiting for culture and sensitivity before starting antibiotics she does not appear septic blood work is reassuring. Head CT is also negative. Dr. Fisher updated patient's symptoms test results and her agrees with readmission. Discharge Plan Departure Patient Disposition: Admitted as Observation Clinical Impression: Falls, Acute UTI Admit Date/Time: 07/01/21 01:56 Admit Provider: India Fisher
--- NOTE | 2021-07-01 00:18 | DI.CT.S_ITS ---
PROCEDURE: CT HEAD/BRAIN WO CON INDICATIONS: FREQUENT FALLS TECHNIQUE: Noncontrast 4.5 mm thick angled axial sections acquired from the foramen magnum to the vertex, with coronal and sagittal reformats. For radiation dose reduction, the following was used: automated exposure control, adjustment of mA and/or kV according to patient size. COMPARISON: None. FINDINGS: Image quality: There is motion artifact limiting evaluation. CSF spaces: Basal cisterns are patent. No extra-axial fluid collections. There is mild cerebral volume loss, with resultant ventricular and sulcal prominence. Brain: No intracranial hemorrhage, mass, or mass effect. There are subcortical, periventricular and deep white matter hypodensities consistent with mild chronic small vessel ischemic changes. The garcia-white matter junction appears preserved. There is intracranial internal carotid artery atherosclerosis. Skull and face: Calvarium and visualized facial bones appear intact, without suspicious lesions. Sinuses: Visualized sinuses and mastoids are clear. IMPRESSION: 1. No acute intracranial abnormality. 2. Mild chronic white matter small vessel ischemic changes and cerebral volume loss. Dictated by: Martell Tong M.D. on 07/01/2021 at 1:04 Approved by: Martell Tong M.D. on 07/01/2021 at 1:06
[2021-07-01 01:29] LABS: Add Manual Diff / Slide Review NO; Basophils Absolute Auto 0 /uL (0-100); Basophils Percent Auto 0.2 % (0-2); Eosinophils Absolute Auto 0 /uL (0-450); Eosinophils Percent Auto 0.2 % (2-4); Hematocrit 32.3 % (36-46); Hemoglobin 11.3 g/dL (12.0-16.0); Lymphocytes Absolute Auto 1100 /uL (1100-4500); Mean Corpuscular HGB Conc 34.9 % (30-36); Mean Corpuscular Hemoglobin 33.5 PG (26-34); Mean Corpuscular Volume 96.1 fL (80-100); Monocytes Absolute Auto 600 /uL (0-900); Monocytes Percent Auto 5.6 % (3-14); Neutrophils Absolute Auto 9000 /uL (1500-7000); Platelet Count 177 X10^3/uL (150-400); Red Blood Cell Count 3.36 X10^6/uL (4.0-5.2); Red Cell Distribution Width 14.3 % (11.6-14.8); White Blood Cell Count 10.7 X10^3/uL (4.5-11.0)
[2021-07-01 01:36] LABS: Alanine Aminotransferase 20 IU/L (<35); Albumin 3.5 g/dL (3.5-5.0); Alkaline Phosphatase 59 U/L (38-126); Aspartate Aminotransferase 53 IU/L (14-36); BUN Creatinine Ratio 12.9 (6-22); Bilirubin Total 1.5 mg/dL (0.2-1.3); Blood Urea Nitrogen 8 mg/dL (7-17); Calcium 8.6 mg/dL (8.4-10.2); Carbon Dioxide 32 mmol/L (22-32); Chloride 91 mmol/L (98-107); Estimated Glomerular Filt Rate > 60.0 mL/min (>60); Globulin 3.6 g/dL (1.7-4.1); Glucose 98 mg/dL (80-110); HEMOLYSIS < 15 (0-50); Potassium 3.2 mmol/L (3.4-5.1); Sodium 129 mmol/L (137-145); Total Protein 7.1 g/dL (6.3-8.2)
[2021-07-01 02:03] LABS: COVID19 -Nasal RAPID Negative (Negative)
[2021-07-01] MEDS: OXYCODONE IR 10 MG TABLET PO ×2 (03:46→09:42)
[2021-07-01] MEDS: GABAPENTIN 600 MG TABLET PO (03:46)
--- NOTE | 2021-07-01 04:31 | PC.NURSE ---
Pt arrived at 0235 from ED via stretcher. Pt was A/O and on 1 L NC d/t not having CPAP machine with her. Pt was oriented to room, call light, fall precautions. Bed in lowest and locked position with call light and belongings within reach. Pts son King was with her at time of arrival and stated that he hopes that her pain medication can be decreased as the pt seems to get very sleepy and out of it when taking the 10 mg Oxy.
[2021-07-01] MEDS: INFLUENZA HD VACCINE 0.7 ML SYRINGE IM (09:49)
--- NOTE | 2021-07-01 13:34 | CM.DANOTE ---
DCP assessment: Patient is a 70 yr old female who had a TLIF preformed by Dr. Crouch and DC home on 06/30/21 but had a fall and readmitted 07/01/21 and is now in need of SNF placement. Patient is A&Ox3 and is independent with all ADLS and drives at baseline. patient live alone in a single level home in [place]. Patient was given choice list and wants to go to [facility]. CM called [facility] and she can accept the patient when [facility] approves and authorization. ISAURA called [facility] to start authorization. Cm faxed clinical information to Geovanna najera at [facility] to review for SNF auth. Patient is unvaccinated and will need to quarenteen at the facility for 7 to 10 days due to being unvaccinated. Patient updated and states understanding I: [facility] MCR and self pay P: DC to [facility] once [place] Authorizes SNF.... Tere Crouch RNretail coverage merchandiser lead Discharge Planning/Care Management Discharge Assessment Start: 07/01/21 13:28 Freq: Status: Active Protocol: Document 07/01/21 13:28 HS (Rec: 07/01/21 13:34 [id number]) Discharge Planning Assessment Assigned [employer] Tere Crouch RNretail coverage merchandiser lead Advance Directives? Yes Advance Directives on File No History Provided By Patient,Medical Record Prior Living Arrangements House Household Members none Comment patients sister lives near by in [place] Type of transporation used prior to Drives own vehicle admit Independent with ADL's Yes Is patient alert and oriented? Yes Caregiver for Another No DME Already Rented / Owned FWW / Walker,Cane Patient/Family Preference Detention Facility,OP PT Therapy Comment wants to go to [facility] is unvaccinated and will need to quarenteen - patient updated on this. Barriers to Discharge Yes Comment need a [facility] insurance auth Discharge Plan Detention Facility Transportation Arrangement facilty will transport to facility Referrals Initiated Detention Additional Comment [facility] contacted Medicare Choice List Provided Yes SNF/HH Preference [facility] at [facility] Contact Name/ Has Agency SNF been contacted Yes Comment [facility] will accept pending [place] auth Whiteboard Updated in Patient Room with Yes name and ext. # of [employer] Review Status In Process Next Review Type Continued Stay Review
--- NOTE | 2021-07-01 14:51 | PT.IIE ---
Addendum entered and electronically signed by Miriam Tripp PT 07/01/21 15:24: Edit POC: OT to assess cognition Original Note: Medical History (Last Reviewed 07/01/21 @ 00:25 by Bre Reveles DO) Chronic diarrhea Fecal incontinence Internal hemorrhoids Neck pain with history of cervical spinal surgery Neuropathy Poor balance Recent urinary tract infection Spinal stenosis of lumbar region Spondylolisthesis, lumbar region Tortuous colon Physical Therapy Inpatient Evaluation/Re-Eval M1 PT/OT-IP Prior Functional Status Start: 07/01/21 14:05 Freq: NEEDED Status: Active Protocol: Document 07/01/21 14:51 AW (Rec: 07/01/21 15:21 AW [id number]) Medical Review Prior Functional Status Medical History Reviewed Yes Communication Pt is able to express her needs. Mobility and Gait Pt and her son state pt has been limited in her mobility since back surgery last year. She tends to creep along [place] and stay near furniture for support. She has a SPC and FWW which she has used more extensively in the past 6 weeks due to increased pain. Prior Functional Level (Other details) Pt had L4-5 L5-S1 TLIF on and discharged home yesterday with her son to assist. She fell twice at home and returned to ED. Social History Household Members none Living Arrangements House Number of Floors (Floors) One Floor Number of Stairs To Enter/Railing? 2 PF steps to enter. No rail. Home Environment Standard Height Toilet,Walk in Shower Home Equipment Front Wheel Walker,Straight Cane,Shower Seat with Backrest ,Grab Bars Near Toilet,Grab Bars In Shower Additional Social History Comment Pt has a supportive son who participated in caregiver training prior to discharge on 06/30/21. M2 PT-IP Current Condition Start: 07/01/21 14:05 Freq: NEEDED Status: Active Protocol: Document 07/01/21 14:51 AW (Rec: 07/01/21 15:21 AW [id number]) Physical Therapy Current Condition Current Condition Evaluation Date 07/01/21 Treatment Diagnosis falls s/p L4-5 L5-S1 TLIF; impaired mobility and gait Onset Date 06/28/21 M3 PT-IP Subjective Start: 07/01/21 14:05 Freq: NEEDED Status: Active Protocol: Document 07/01/21 14:51 AW (Rec: 07/01/21 15:21 AW [id number]) Subjective Physical Therapy Visit Type Type Initial Evaluation Visit Start Time 14:25 Visit Stop Time 14:48 Total Visit Minutes 23 Notes Pt's son was present throughout evaluation and provided chair follow assist during gait assessment. Physical Therapy Visit Comments Patient Comments Pt is willing to participate with PT Patient Goals Pt feels home is unsafe for her at this time and is open to rehab options. Therapy Pain Assessment Pain When Pain Assessed At Rest Pain Present Pain Present Pain Reported Location back Intensity 8 Scale Used Numeric (0 - 10) Pain Behaviors Facial Grimacing,Wincing Pain Management Techniques Distraction,Re-positioning M4 PT-IP Mobility and Gait Start: 07/01/21 14:05 Freq: NEEDED Status: Active Protocol: Document 07/01/21 14:51 AW (Rec: 07/01/21 15:21 AW [id number]) PT-Bed Mobility Assessment Rolling Type of Rolling Log Rolling,Roll to Left Level of Assist Minimal Assistance,1 Person Assistance Supine to Sit Supine to Sit Minimal Assistance,1 Person Assistance Scooting Scooting to Edge of Bed Contact Guard Assistance PT-Transfer Assessment Sit to and From Stand Sit to and from Stand Contact Guard Assistance,Use of Upper Extremities Equipment Transfer Assistive Device Gait Belt,Front Wheeled Walker Orthotic/Prosthetic Devices or Brace: No Transfers Transfer Destination Chair Transfer Technique Stand Step Pivot Transfer Ability Level of Assist Contact Guard Assistance,Use of Upper Extremities Comments Mobility Comments Pt was lying on her right side in bed as PT arrived. She was groggy and needed constant cues to keep her eyes open and attend to task. Pt was able to recall 1/3 precautions. BP 132/70 HR 83 SpO2 96% RA. Pt agreed to get up, needing cues but demonstrating good log roll technique to roll toward the left side. SL to sit required min A but pt was able to maintain precautions. She stood CGA but needed cues to push off the mattress instead of pulling on the walker. She used FWW to ambulate 8 feet to the chair, transferring CGA. She agreed to ambulate further . She stood with repeated cues to push off the chair instead of pulling on the walker CGA and ambulated 30 feet in the room as her son pushed the chair behind her. Pt complained on RLE weakness and feeling unstable but required no more than CGA for 30 feet with FWW. She transferred to the chair CGA and was positioned there with legs elevated, call light at her side, and tray table in reach. Advised RN of need for chair alarm. Gait Assessment Gait Gait Assistance Required: Contact Guard Assist Distance (Feet) 30 Able to Maintain Weight Bearing Status Yes During Gait Assistive Devices Assistive Device Gait Belt,Front Wheeled Walker Orthotic/Prosthetic Devices or Brace: No Gait Deviations General Gait Pattern Antalgic,Decreased Stride Length,Decreased Feet Clearance Factors Limiting Gait Function Factors Limiting Gait Function Decreased Activity Tolerance, Decreased Strength,Pain Comments Gait Comments 30' x 1 without overt LOB but pt did require cues to navigate obstacles. Stair Climbing Assessment Comments Stair Climbing Comments Not assessed. PT-Balance Assessment Sitting Balance and Reactions Static Sitting Balance Ability Good Dynamic Sitting Balance Ability Good Standing Balance and Reactions Static Standing Balance Ability Fair Dynamic Standing Balance Ability Fair Device Used FWW M5 PT-IP Objective Assessments Start: 07/01/21 14:05 Freq: NEEDED Status: Active Protocol: Document 07/01/21 14:51 AW (Rec: 07/01/21 15:21 AW [id number]) Orientation Orientation/Cognition Level of Alertness Confusional State Orientation Name,Place,Situation Safety Awareness Decreased Safety Awareness Memory Description Short Term Impaired Comments Pt was lethargic and confused, requiring frequent cues to attend to task. Gross Range of Motion Lower Extremity ROM Assessment Within Functional Limits Strength Lower Extremity Strength Assessment Bilaterally Impaired Comments Strength Comments Grossly 3+/5 bilaterally. Sensation Assessment Sensation Gross Sensation WNL Muscle Tone Muscle Tone WNL Yes M6 PT-IP Treatment Start: 07/01/21 14:05 Freq: NEEDED Status: Active Protocol: Document 07/01/21 14:51 AW (Rec: 07/01/21 15:21 AW [id number]) Physical Therapy Treatment Education Education Provided Precautions,Safety M7 PT-IP Assessment and Plan Start: 07/01/21 14:05 Freq: NEEDED Status: Active Protocol: Document 07/01/21 14:51 AW (Rec: 07/01/21 15:21 AW [id number]) PT Summary Assessment and Plan Potential Rehabilitation Potential Good Status of Condition at Evaluation Evolving Summary Impairments Pain,Strength,Balance, Cognition,Bed Mobility, Transfers,Gait,Activity Tolerance Assessment Summary Silvana is a 70 yo woman with history of L4-L5 L5-S1 TLIF on 06/28/21 who discharged home with assist on 06/30/21. She was re-admitted after at least two falls at home. On assessment, Silvana's judgment, safety awareness, strength, and attention are impaired and limiting her safe mobility. Depending on progress, it is likely pt will require SNF rehab since she does not have adequate assist at home. Will continue to assess for safe discharge plan . Goals Bed Mobility Goal Standby Assistance Transfer Goal Standby Assistance,Front Wheeled Walker Gait Goal Standby Assistance,Front Wheel Walker Gait Distance 200 Other Goals - up/down 2 platform steps using FWW CGA Days to Meet Goals 8 Frequency of Treatment Frequency Of Treatment Twice a Day Treatment Plan Physical Therapy Treatment Plan Bed Mobility Training,Transfer Training,Gait Training, Therapeutic Exercise,Balance Retraining,Post Op Education, Discharge Planning,Hot or Cold Pack,Neuromuscular Re-ed Other Recommendations and Next Treatment transfers, gait with FWW and Focus chair follow; continue education on precautions Precautions Lumbar Precautions Log Roll,No Twisting,Limit Bending,Lifting Restriction of 10 lbs,Gait Belt above Incisional Area Other Precautions falls Recommendations To Nursing Amount of Assist Needed 1 Person Assist Discharge Recommendations PT Discharge Recommendations Home Health,SNF Rehab,Home vs SNF Transportation Needs at Discharge Private Vehicle,Wheelchair/ Cabulance
--- NOTE | 2021-07-01 15:29 | DI.RAD.S_ITS ---
PROCEDURE: XR LUMBAR SPINE 2-3V INDICATIONS: s/p lumbar fusion, recent falls, increased pain TECHNIQUE: 2 views of the lumbar spine were acquired. COMPARISON: [facility], CR, XR LUMBAR SPINE 2 OR 3 VIEWS, 04/16/2021, 13:38. [facility], CR, XR LUMBAR SPINE 2-3V, 06/28/2021, 16:21. FINDINGS: Bones: 5 [id number] vertebrae are present. Postsurgical changes are seen from interval posterior fixation at the L4-5 level with posterior rods and pedicle screws and interbody spacer. Postsurgical changes again seen at the L5-S1 level. Disc space height appears improved at the L4-5 level. Alignment is otherwise unchanged. No vertebral body compression fractures. No suspicious bony lesions. Soft tissues: Overlying bowel gas pattern is normal. No suspicious soft tissue calcifications. Overlying skin hitesh are seen. Aortic atherosclerotic calcifications are present. IMPRESSION: Interval postsurgical changes at the L4-5 level in addition to chronic postsurgical changes at L5-S1. Dictated by: Kelby Fair M.D. on 07/01/2021 at 16:32 Approved by: Kelby Fair M.D. on 07/01/2021 at 16:35
--- NOTE | 2021-07-01 15:34 | P.HP_ITS ---
History of Present Illness History of Present Illness Date Patient Seen: 07/01/21 Time Patient Seen: 13:34 Chief complaint: Fall, increased LBP s/p TLIF Narrative: Patient is a female with history of hypertension, depression, obesity presented to the ED last night with increasing falls.? She had a spinal fusion on June [address] Ryan, and she was discharged earlier yesterday.? She was discharged home with care from her son. There was discussion about a fpc facility, but she was cleared to go home upon previous discharge. The patient notes she has had 2 or 3 falls since being discharged home, to after using the restroom and 1 on the couch. There was concern that perhaps she is overdoing with oxycodone. She was taking 10 mg every couple of hours for her pain. She denies any bowel or bladder incontinence, no saddle anesthesia. The patient also notes that since her surgery she has had episodes of confusion. She notes she closes her eyes, and starts talking to someone who is not in the room. She then realizes that person is not in the room. She denies any previous history of memory issues or dementia. Her mother recently from dementia. Denies any fevers, chills, night sweats. Patient History Medical History Chronic diarrhea Fecal incontinence Internal hemorrhoids Neck pain with history of cervical spinal surgery Neuropathy Poor balance Recent urinary tract infection Spinal stenosis of lumbar region Spondylolisthesis, lumbar region Tortuous colon Surgical History History of colonoscopy History of lumbar spinal fusion (06/06/20) S/P epidural steroid injection Status post cervical spinal fusion (05/25/14) Family & Social History Social History: household members none Prior Living Arrangements House Safety & Behavioral: Feels Safe in Current Yes Environment Been Physically Hurt or No Threatened By a Person Suicidal Ideation Description None Suicide Plan Description No Plan Tobacco & Substance use: Tobacco type cigarettes Smoking Status Former smoker alcohol intake current alcohol intake frequency a few times a week Substance Use Type does not use Meds Home Medications and Allergies Home Medications Medication Instructions Recorded Confirmed Type bupropion HCl 150 mg 24 hr tablet, 150 mg PO DAILY 02/22/20 07/01/21 History extended release bupropion HCl 300 mg 24 hr tablet, 300 mg PO DAILY 02/22/20 07/01/21 History extended release gabapentin 600 mg tablet 600 mg PO BID 02/22/20 07/01/21 History hydrochlorothiazide 25 mg tablet 25 mg PO DAILY 02/22/20 07/01/21 History pantoprazole 40 mg tablet,delayed 40 mg PO DAILY 02/22/20 07/01/21 History release budesonide 3 mg 9 mg PO PRN PRN 06/05/20 07/01/21 History capsule,delayed,extended release loperamide 2 mg capsule 4 mg PO QID 06/05/20 07/01/21 History quetiapine 25 mg tablet 25 mg PO DAILY 06/05/20 07/01/21 History valsartan 160 mg tablet 160 mg PO DAILY 06/05/20 07/01/21 History acetaminophen 325 mg tablet 650 mg PO Q4HR PRN #30 tab 06/08/20 07/01/21 Rx oxycodone 5 mg tablet 10 mg PO Q3HR PRN #40 tab 06/30/21 07/01/21 Rx Allergies Allergy/AdvReac Type Severity Reaction Status Date / Time adhesive tape AdvReac Mild Red, itchy Verified 06/30/21 19:38 Exam Vital Signs (past 8 hours): - 07/01/21 08:00 07/01/21 12:00 Temperature 98.1 F 98.9 F Pulse Rate 83 78 Respiratory Rate 16 16 Blood Pressure 141/76 H 154/65 H Pulse Oximetry 94 94 Oxygen Delivery Method Nasal Cannula Oxygen Flow Rate 0 Narrative Exam Narrative: Pleasant 70-year-old female, resting comfortably in bed, no acute distress. She is mildly confused, but is answering my questions appropriately. Dressing is clean, dry, intact. Bilateral lower extremity: Motor functions are grossly int act/5 5 with knee flexion and extension, dorsiflexion plantar flexion and EHLs. Bilateral lower extremities sensation is grossly intact to light touch, calves are soft and nontender palpation. Objective Labs Result Diagrams: 07/01/21 01:13 07/01/21 01:13 Labs: Laboratory Results - last 24 hr 06/30/21 07/01/21 07/01/21 23:28 01:13 01:13 WBC 10.7 RBC 3.36 L Hgb 11.3 L Hct 32.3 L MCV 96.1 MCH 33.5 MCHC 34.9 RDW 14.3 Plt Count 177 Neut % (Auto) 84.0 H Lymph % (Auto) 10.0 L [place] % (Auto) 5.6 Eos % (Auto) 0.2 L Baso % (Auto) 0.2 Neut # (Auto) 9000 H Lymph # (Auto) 1100 [place] # (Auto) 600 Eos # (Auto) 0 Baso # (Auto) 0 Sodium 129 L Potassium 3.2 L Chloride 91 L Carbon Dioxide 32 BUN 8 Creatinine 0.62 Estimated GFR > 60.0 BUN/Creatinine Ratio 12.9 Glucose 98 Calcium 8.6 Total Bilirubin 1.5 H AST 53 H ALT 20 Alkaline Phosphatase 59 Total Protein 7.1 Albumin 3.5 Globulin 3.6 Albumin/Globulin Ratio 1.0 Urine Color Dark yellow Urine Appearance Clear Urine pH 6.0 Ur Specific [place] 1.010 Urine Protein Negative Urine Glucose (UA) Negative Urine Ketones Trace H Urine Occult Blood 2+ H Urine Nitrate Negative Urine Bilirubin Negative Urine Urobilinogen 0.2 Ur Leukocyte Esterase Trace H Urine RBC 0-1/hpf Urine WBC 0-1/hpf Ur Squamous Epith Cells 1-5 /hpf Urine Bacteria Few (2-10) H Ur Culture Indicated? Specimen cultured SARS-CoV-2 (PCR) 07/01/21 01:42 WBC RBC Hgb Hct MCV MCH MCHC RDW Plt Count Neut % (Auto) Lymph % (Auto) [place] % (Auto) Eos % (Auto) Baso % (Auto) Neut # (Auto) Lymph # (Auto) [place] # (Auto) Eos # (Auto) Baso # (Auto) Sodium Potassium Chloride Carbon Dioxide BUN Creatinine Estimated GFR BUN/Creatinine Ratio Glucose Calcium Total Bilirubin AST ALT Alkaline Phosphatase Total Protein Albumin Globulin Albumin/Globulin Ratio Urine Color Urine Appearance Urine pH Ur Specific [place] Urine Protein Urine Glucose (UA) Urine Ketones Urine Occult Blood Urine Nitrate Urine Bilirubin Urine Urobilinogen Ur Leukocyte Esterase Urine RBC Urine WBC Ur Squamous Epith Cells Urine Bacteria Ur Culture Indicated? SARS-CoV-2 (PCR) Negative Assessment & Plan Assessment & Plan narrative: -status post L5-S1 hardware removal, L4-5, L5-S1 TLIF on 06/28/[address] Altamirano -recent falls -recent onset postop confusion/delirium Postoperative plan narrative: -mobilize with PT.? Weightbearing as tolerated front wheel walker.? Limit bending, lifting, twisting x6 weeks? -continue multimodal pain management.? Encouraged p.o. pain medications on a more regular basis.? Change Tylenol to scheduled, added tramadol 50-100 mg for moderate pain. Reduced oxycodone 5 mg, down from 10 mg -hopefully reducing her narcotic pain medications will help with her confusion -x-ray taken today demonstrate no acute fractures or hardware loosening. -DC to SNF likely in 1-2 days. Time Spent With Patient Critical Care time: I spent a total of [] minutes of critical care time on this patient's care today; this time is exclusive of procedural time.
[2021-07-01] MEDS: ACETAMINOPHEN 325 MG TABLET 650 MG PO ×2 (17:37→23:23)
[2021-07-01] MEDS: TRAMADOL 50 MG TABLET PO (23:23)
[2021-07-02] MEDS: ACETAMINOPHEN 325 MG TABLET 650 MG PO ×2 (05:47→13:04)
[2021-07-02] MEDS: OXYCODONE IR 10 MG TABLET 5 MG PO (05:49)
[2021-07-02 08:28] VITALS: BP 156/78; PULSE 78; RESP 18; TEMP 35.9; O2SAT 96
--- NOTE | 2021-07-02 10:13 | OT.IP.EVAL ---
Past Medical History (Last Reviewed 07/01/21 @ 16:59 by Tona Loaiza PA-C) Chronic diarrhea Fecal incontinence History of colonoscopy History of lumbar spinal fusion (06/06/20) Internal hemorrhoids Neck pain with history of cervical spinal surgery Neuropathy Poor balance Recent urinary tract infection S/P epidural steroid injection Spinal stenosis of lumbar region Spondylolisthesis, lumbar region Status post cervical spinal fusion (05/25/14) Tortuous colon Surgical History (Last Reviewed 07/01/21 @ 16:59 by Tona Loaiza PA-C) History of colonoscopy History of lumbar spinal fusion (06/06/20) S/P epidural steroid injection Status post cervical spinal fusion (05/25/14) Occupational Therapy Inpatient Evaluation/Re-Eval M1 PT/OT-IP Prior Functional Status Start: 07/01/21 14:05 Freq: NEEDED Status: Active Protocol: Document 07/02/21 10:26 [facility] (Rec: 07/02/21 10:41 [facility] [id number]) Medical Review Prior Functional Status Medical History Reviewed Yes Communication Pt is able to express her needs. Mobility and Gait Pt and her son state pt has been limited in her mobility since back surgery last year. She tends to creep along mondragon and stay near furniture for support. She has a SPC and FWW which she has used more extensively in the past 6 weeks due to increased pain. Activities of Daily Living and IADL's pt needign increased time for ADL needs, pt just wears slip on shoes Prior Functional Level (Other details) Pt had L4-5 L5-S1 TLIF on and discharged home yesterday with her son to assist. She fell twice at home and returned to ED. Social History Household Members none Living Arrangements House Number of Floors (Floors) One Floor Number of Stairs To Enter/Railing? 2 PF steps to enter. No rail. Home Environment Standard Height Toilet,Walk in Shower Home Equipment Front Wheel Walker,Straight Cane,Shower Seat with Backrest ,Grab Bars Near Toilet,Grab Bars In Shower Additional Social History Comment Pt has a supportive son who participated in caregiver training prior to discharge on 06/30/21. M2 OT-IP Current Condition Start: 07/02/21 10:25 Freq: Status: Active Protocol: Document 07/02/21 10:26 [facility] (Rec: 07/02/21 10:41 [facility] [id number]) Occupational Therapy Current Condition Current Condition Evaluation Date 07/02/21 Treatment Diagnosis S/p L4-5, L5-S1 TLIF on 06/28/21 Diagnosis Onset Date 07/01/21 Post Operative Precautions Lumbar Precautions Log Roll,No Twisting,Limit Bending,Lifting Restriction of 10 lbs,Gait Belt above Incisional Area M3 OT- IP Subjective and Pain Start: 07/02/21 10:25 Freq: Status: Active Protocol: Document 07/02/21 10:26 [facility] (Rec: 07/02/21 10:41 [facility] [id number]) OT- Subjective Occupational Therapy Visit Type Type Initial Evaluation Visit Start Time 09:35 Visit Stop Time 10:13 Total Visit Minutes 38 Occupational Therapy Visit Comments Patient Comments Pt sleepy but agreed to get up and use the toilet. Patient/Caregiver Goals TO get better and stronger. OT Pain Assessment Pain When Pain Assessed At Rest Pain Present Pain Present Denied Pain M4 OT- IP ADL's Start: 07/02/21 10:25 Freq: Status: Active Protocol: Document 07/02/21 10:26 [facility] (Rec: 07/02/21 10:41 [facility] [id number]) OT [id number] Comments OT Self-Feeding Comments NOt at meal time. OT ADL-Grooming General Evaluation Grooming Ability Standby Assistance Areas Needing Assistance Retrieving/Set-up of Grooming Items OT ADL-Oral Care General Eval Oral Care Ability Standby Assistance Areas of Assistance Retrieving/Set-Up of Items Comments Oral Care Comments Vc to hinge at her hips in order to best follow her back precautions or spit into a cup . OT ADL-Dressing General Eval Lower Body Dressing Ability Minimal Assistance,Maximum Assistance Areas Needing Assistance Socks Comments OT Dressing Comments Started education of LB dressing equipment and pt a bit groggy and still needing cues and assist. OT ADL-Toileting General Evaluation Areas Needing Assistance Perform Perineal Hygiene Comments OT Toileting Comments Pt able to reach from the front however will need assist from the back, pt has a bidet at home to use. OT ADL-Bathing Comments OT Bathing Comments Not performed. M5 OT- IP IADL's Start: 07/02/21 10:25 Freq: Status: Active Protocol: Document 07/02/21 10:26 [facility] (Rec: 07/02/21 10:41 [facility] [id number]) OT-Instrumental Activities of Daily Living Home Safety Awareness Awareness of Need for Assistance at Home Decreased Awareness Home Safety Comments Pt bit groggy and at this time would need assist for ADl and IADL needs and cues for safety. M6 OT- IP Functional Cognition Start: 07/02/21 10:25 Freq: Status: Active Protocol: Document 07/02/21 10:26 [facility] (Rec: 07/02/21 10:41 [facility] [id number]) Cognitive Factors Limiting Selfcare Function Cognitive Ability Level of Alertness Alert,Drowsy Patient Orientation Name,Place,Situation Attention Span Ability Capable of Focused Attention, Capable of Sustained Attention Ability to Follow Commands Able to Follow One Step Commands with Increased Time, Able to Follow One Step Commands with Repetition Memory Description Short Term Impaired,Working Impaired Safety Awareness Decreased Ability to Apply Precautions,Underestimates Need for Assistance Problem Solving Ability Needs Assist to Identify Solutions Cognitive Tests SLUMS Pt score maybe affected by being groggy from medications and not sleppy well. Pt scored 19/30 which implies dementia. Pt not able to figure out 100-23, able to recall 3/5 objects after time passed, not able to recall a 4 digit number backwards, not able to draw the hour hands correct on a clock after time given, and able to answer 2/4 questions right after time passed. OT- Vision and Hearing OT- Hearing Assessment OT- Hearing Assessment WFL OT- Vision Assessment Visual Acuity Glasses All The Time M7 OT- IP Mobility and Balance Start: 07/02/21 10:25 Freq: Status: Active Protocol: Document 07/02/21 10:26 [facility] (Rec: 07/02/21 10:41 [facility] [id number]) OT- Bed Mobility Assessment Rolling Type of Rolling Roll to Right Level of Assistance Contact Guard Assistance Supine to Sit Supine to Sit Assist Standby Assistance OT-Transfer Assessment Sit to and From Stand Sit to and from Stand Contact Guard Assistance Transfers Transfer Ability Contact Guard Assistance, Minimal Assistance Technique Transfer Destination Bed,Chair,Toilet Transfer Technique Stand Step Pivot Devices Transfer Assistive Devices Gait Belt,Front Wheeled Walker Comments Mobility Comments CGA to HOMA for mobility needs pending on level of surface coming up from. Pt educated how to oralia/doff the gait belt and how to assist pt for transfers. OT- Balance Assessment Sitting Balance and Reactions Static Sitting Balance Ability Good Dynamic Sitting Balance Ability Fair Standing Balance and Reactions Static Standing Balance Ability Fair M8 OT- IP Objective Assessments Start: 07/02/21 10:25 Freq: Status: Active Protocol: Document 07/02/21 10:26 [facility] (Rec: 07/02/21 10:41 [facility] [id number]) OT- Coordination Assessment Comments Coordination Comments Decreased coordination in her hands. OT-Muscle Tone Assessment Muscle Tone WNL Yes M9 OT- IP Assessment and Plan Start: 07/02/21 10:25 Freq: Status: Active Protocol: Document 07/02/21 10:26 [facility] (Rec: 07/02/21 10:41 [facility] [id number]) OT Summary Assessment and Plan Potential Rehabilitation Potential Good Analytic Complexity at Evaluation Low Summary OT Impairments Pain,Balance,Functional Cognition,Functional Mobility, Grooming,Dressing,Toileting, Bathing,Toilet Transfers, Shower Transfers,Activity Tolerance Progress Towards Goals Slow Progress due to Pain,Slow Progress due to Activity Tolerance,Slow Progress due to Cognition Assessment Summary Pt low complexity and here due to having falls after recent back surgery. Pt main barriers are steps, groggy and not thinking well and needing cues to incorporate her back precautions. Pt would benefit from skilled rehab versus home with 24/7 and home health at this time pending how comfortable pt's son feels to able to assist the pt. Per son the her bed is too high and suggested to have it lowered. Goals Self-Feeding Goal Independent Grooming Goal Independent Dressing Goal Independent Toileting Goal Independent Bathing Goal Independent Toilet Transfer Goal Independent Shower Transfer Goal Independent Patient/Caregiver Education Goal Caregiver Independent Assisting Patient Days to Meet Goals 15 Frequency of Treatment Frequency Of Treatment Once a Day Treatment Plan OT Treatment Plan ADL Training,Functional Cognition Training,Functional Mobility,Patient/Family Education,Discharge Planning Other Treatment Recommendations and Next shower/caregier training Treatment Focus Discharge Recommendations OT Discharge Recommendations Home with 24/7 Assist Available,Home Health,SNF Rehab,Home vs SNF Transportation Needs at Discharge Private Vehicle,Wheelchair/ Cabulance
--- NOTE | 2021-07-02 10:56 | PT.IPTN ---
Physical Therapy Treatment Note M2 PT-IP Current Condition Start: 07/01/21 14:05 Freq: NEEDED Status: Active Protocol: Document 07/01/21 14:51 [facility] (Rec: 07/01/21 15:21 [facility] [id number]) Physical Therapy Current Condition Current Condition Evaluation Date 07/01/21 Treatment Diagnosis falls s/p L4-5 L5-S1 TLIF; impaired mobility and gait Onset Date 06/28/21 M3 PT-IP Subjective Start: 07/01/21 14:05 Freq: NEEDED Status: Active Protocol: Document 07/02/21 10:33 [facility] (Rec: 07/02/21 12:17 [facility] [id number]) Subjective Physical Therapy Visit Type Type Treatment Note Visit Start Time 10:33 Visit Stop Time 10:56 Total Visit Minutes 23 Notes Pts son present during treatment. Number of PHERESIS NURSE Visits 1 Physical Therapy Visit Comments Patient Comments Pt is willing to participate with PT Patient Goals Pt feels home is unsafe for her at this time and is open to rehab options. M4 PT-IP Mobility and Gait Start: 07/01/21 14:05 Freq: NEEDED Status: Active Protocol: Document 07/02/21 10:33 [facility] (Rec: 07/02/21 12:17 [facility] [id number]) PT-Bed Mobility Assessment Sit to Supine Sit to Supine Minimal Assistance,1 Person Assistance Scooting Scooting to Edge of Bed Contact Guard Assistance PT-Transfer Assessment Sit to and From Stand Sit to and from Stand Contact Guard Assistance, Minimal Assistance,Use of Upper Extremities Equipment Transfer Assistive Device Gait Belt,Front Wheeled Walker Orthotic/Prosthetic Devices or Brace: No Transfers Transfer Destination Bed,Chair Transfer Technique Pt ambulated w/ FWW Transfer Ability Level of Assist Contact Guard Assistance,Use of Upper Extremities Comments Mobility Comments Pt in chair w/ son in room upon arrival. CGA/Min A for sit<>Stand w/ FWW and cues for hand placement. Pt slightly impulsive and initially trying to pull up from FWW. Pt then ambulated ~40 ft w/ FWW and Min A and frequent cues to stay close and inside FWW. Pt had difficulty avoiding some obstacles in room and difficulty staying inside FWW when turning, increasing her risk of falling. Pt returned to chair and performed 1x10 bilateral ankle pumps, seated marches, quad sets, and glute sets. She then transferred to bed CGA and Min A for sit<>Sup for logroll. Pt left in bed w / alarm on and all needs in reach. Gait Assessment Gait Gait Assistance Required: Minimum Assistance,1 Person Assist Distance (Feet) 40 Able to Maintain Weight Bearing Status Yes During Gait Assistive Devices Assistive Device Gait Belt,Front Wheeled Walker Orthotic/Prosthetic Devices or Brace: No Gait Deviations General Gait Pattern Antalgic,Decreased Stride Length,Decreased Feet Clearance,Flexed Trunk,Lateral Trunk Lean Factors Limiting Gait Function Factors Limiting Gait Function Decreased Activity Tolerance, Decreased Strength, Incoordination,Pain,Poor Balance,Poor Safety Awareness Comments Gait Comments Pt required Min A for FWW management and frequent cues to avoid leaning to R side, staying in FWW (especially when turning). Poor safety awareness and difficulty avoidig obstacles. Stair Climbing Assessment Comments Stair Climbing Comments Not assessed. PT-Balance Assessment Sitting Balance and Reactions Static Sitting Balance Ability Good Dynamic Sitting Balance Ability Good Standing Balance and Reactions Static Standing Balance Ability Fair Dynamic Standing Balance Ability Fair Device Used FWW M5 PT-IP Objective Assessments Start: 07/01/21 14:05 Freq: NEEDED Status: Active Protocol: Document 07/01/21 14:51 [facility] (Rec: 07/01/21 15:21 [facility] [id number]) Orientation Orientation/Cognition Level of Alertness Confusional State Orientation Name,Place,Situation Safety Awareness Decreased Safety Awareness Memory Description Short Term Impaired Comments Pt was lethargic and confused, requiring frequent cues to attend to task. Gross Range of Motion Lower Extremity ROM Assessment Within Functional Limits Strength Lower Extremity Strength Assessment Bilaterally Impaired Comments Strength Comments Grossly 3+/5 bilaterally. Sensation Assessment Sensation Gross Sensation WNL Muscle Tone Muscle Tone WNL Yes M6 PT-IP Treatment Start: 07/01/21 14:05 Freq: NEEDED Status: Active Protocol: Document 07/02/21 10:33 [facility] (Rec: 07/02/21 12:17 [facility] [id number]) Physical Therapy Treatment Exercises Exercises Ankle Pumps,Gluteal Sets,Quad Sets Education Education Provided Precautions,Safety Other Treatments Other Treatment Performed Seated marches M7 PT-IP Assessment and Plan Start: 07/01/21 14:05 Freq: NEEDED Status: Active Protocol: Document 07/02/21 10:33 [facility] (Rec: 07/02/21 12:17 [facility] [id number]) PT Summary Assessment and Plan Potential Rehabilitation Potential Good Status of Condition at Evaluation Evolving Summary Assessment Summary Pt remains limited by weakness , poor safety awareness, and poor balance. Able to ambulate ~40 ft w/ FWW but required Min A and frequent cues for FWW management, upright posture, and obstacle avoidance. Pt leans to R side and steps outside of FWW when turning. Due to her increased risk of falls and weakness, she will require SNF prior to going back home and she and her son are agreeable to this plan. Goals Bed Mobility Goal Standby Assistance Transfer Goal Standby Assistance,Front Wheeled Walker Gait Goal Standby Assistance,Front Wheel Walker Gait Distance 200 Other Goals - up/down 2 platform steps using FWW CGA Days to Meet Goals 8 Frequency of Treatment Frequency Of Treatment Twice a Day Treatment Plan Physical Therapy Treatment Plan Bed Mobility Training,Transfer Training,Gait Training, Therapeutic Exercise,Balance Retraining,Post Op Education, Discharge Planning,Hot or Cold Pack,Neuromuscular Re-ed Other Recommendations and Next Treatment transfers, gait with FWW and Focus chair follow; continue education on precautions Precautions Lumbar Precautions Log Roll,No Twisting,Limit Bending,Lifting Restriction of 10 lbs,Gait Belt above Incisional Area Other Precautions falls Recommendations To Nursing Amount of Assist Needed 1 Person Assist Discharge Recommendations PT Discharge Recommendations Home with 24/7 Assist Available,Home Health,SNF Rehab Other Discharge Recommendations OT to assess cognition Transportation Needs at Discharge Private Vehicle,Wheelchair/ Cabulance
--- NOTE | 2021-07-02 12:10 | P.DS_ITS ---
History of Present Illness History of Present Illness Date Patient Seen: 07/02/21 Time Patient Seen: 12:12 Chief complaint: Fall, increased LBP s/p TLIF Narrative: Patient is a female with history of hypertension, depression, obesity presented to the ED with increasing falls.? She had a spinal fusion on June [address] Ryan, and was discharged to home with care from her son. There was discussion about a usp facility, but she was cleared to go home upon previous discharge. The patient notes she has had 2 or 3 falls since being discharged home, to after using the restroom and 1 on the couch. There was concern that perhaps she is overdoing it with oxycodone. She was taking 10 mg every couple of hours for her pain. She denies any bowel or bladder incontinence, no saddle anesthesia. The patient also notes that since her surgery she has had episodes of confusion. She notes she closes her eyes, and starts talking to someone who is not in the room. She then realizes that person is not in the room. This has been improving since reducing her narcotic pain meds. She denies any previous history of memory issues or dementia. Her mother recently from dementia. Denies any fevers, chills, night sweats. She states her pain is doing better today with the decreased narcotics. Her son worked with her and her physical therapist this morning, and is concerned about her generalized deconditioning and making sure she is safe at home. Everyone is in agreement that SNF would be safest for her. Discharge Providers Provider Date of admission: 07/01/21 01:56 Discharge Date: 07/02/21 Primary care physician: STACY Johnson Consults: 06/30/21 21:20 Consult to SPACE CONTROL SUPERVISOR - Manufacturing Controller Stat Comment: 07/01/21 13:45 Consult to Physical Therapy Evaluate & Treat Comment: Physician Instructions: Evaluate and Treat 07/01/21 13:46 Consult to Occupational Therapy Evaluate & Treat Comment: Physician Instructions: Evaluate and treat Discharge provider: Tona Loaiza PA-C Summary Hospital Course Discharge Diagnosis: -status post L5-S1 hardware removal, L4-5, L5-S1 TLIF on 06/28/[address] Altamirano -recent falls -recent onset postop confusion/delirium, resolving with decreased narcotic pain meds -generalized deconditioning -low grade UTI Hospital Course: She had a spinal fusion on June [address] Ryan, and was discharged to home with care from her son. The patient had several falls at home, likely too much oxycodone, and was brought back to the emergency room. She has undergone physical therapy and is determined that SNF would be safest for her. She is also found to have a low-grade UTI, 10-20,000 colonies of Gram-negative bacilli. Yet to be identified, sensitivities have not been finalized. Status at Discharge Cognitive/behavioral status at discharge: oriented Functional status at discharge: uses cane/walker Overall status at discharge: patient is progressing back to baseline Exam Vital Signs (past 8 hours): - 07/02/21 08:28 Temperature 96.7 F L Pulse Rate 78 Respiratory Rate 18 Blood Pressure 156/78 H Pulse Oximetry 96 Oxygen Delivery Method Nasal Cannula Oxygen Flow Rate 0 Narrative Exam Narrative: Pleasant 70-year-old female, resting comfortably in bed, no acute distress. Her son is at bedside. Dressing is clean, dry, intact. Appropriate conversation and answers. Bilateral lower extremity: Motor functions are grossly intact, sensation grossly intact to light touch, calves are soft and nontender palpation. Objective Labs Result Diagrams: 07/01/21 01:13 07/01/21 01:13 [facility] Medical History Chronic diarrhea Fecal incontinence Internal hemorrhoids Neck pain with history of cervical spinal surgery Neuropathy Poor balance Recent urinary tract infection Spinal stenosis of lumbar region Spondylolisthesis, lumbar region Tortuous colon Surgical History History of colonoscopy History of lumbar spinal fusion (06/06/20) S/P epidural steroid injection Status post cervical spinal fusion (05/25/14) Social History household members: none Smoking Status: Former smoker alcohol intake: current Discharge Assessment & Plan Assessment and Plan Assessment: -status post L5-S1 hardware removal, L4-5, L5-S1 TLIF on 06/28/[address] Altamirano -recent falls -recent onset postop confusion/delirium, resolving with decreased narcotic pain meds -generalized deconditioning -low grade UTI Plan of Treatment: -mobilize with PT.? Weightbearing as tolerated front wheel walker.? Limit bending, lifting, twisting x6 weeks? -some difficulty with physical therapy due to generalized deconditioning -continue multimodal pain management.? Encouraged p.o. pain medications on a more regular basis.? Change Tylenol to scheduled, added tramadol 50-100 mg for moderate pain.? Reduced oxycodone 5 mg, down from 10 mg -UA + C&S show 10,000-20,000 gram negative bacilli. Species have not been identified yet, sensitivities have not been completed yet. Will start on emperic keflex 500mg qid x3 days, until C&S finialized. -DC to SNF once bed is available, today or tomorrow Discharge Plan Discharge Plan Patient Disposition: SNF I certify the postop hospital usp care is medically necessary on a continuing basis for any conditions for which he/ she received care during this hospitalization.: Yes The receiving facility has agreed to accept transfer and provide medical treatment.: Yes Discharge orders & Medications Prescriptions: New acetaminophen 500 mg capsule 500 mg PO Q4H MDD max 3000mg per day PRN (Reason: fever or pain) Qty: 90 0RF tramadol 50 mg Tablet See Rx Instructions .ROUTE .COMPLEX PRN (Reason: Pain, mild-Moderate (4-6)) Qty: 40 0RF Rx Instructions: take 1-2 tablets every 4 hours as needed for moderate-severe postop pain (max 8 tabs/day) Continued gabapentin 600 mg tablet 600 mg PO BID 0RF pantoprazole 40 mg tablet,delayed release (DR/EC) 40 mg PO DAILY 0RF hydrochlorothiazide 25 mg tablet 25 mg PO DAILY 0RF bupropion HCl 300 mg tablet extended release 24 hr 300 mg PO DAILY 0RF Rx Instructions: Takes 450 mg q am bupropion HCl 150 mg tablet extended release 24 hr 150 mg PO DAILY 0RF Label Comments: takes 450 mg qam quetiapine 25 mg tablet 25 mg PO DAILY 0RF Label Comments: hasn't started yet valsartan 160 mg tablet 160 mg PO DAILY 0RF budesonide 3 mg Capsule,Delayed,Extend.Release 9 mg PO PRN PRN (Reason: Anxiety) 0RF loperamide 2 mg Capsule 4 mg PO QID 0RF Label Comments: Two tabs in the morning, noon, early evening and bedtime Changed oxycodone 5 mg Tablet See Rx Instructions .ROUTE .COMPLEX PRN (Reason: Pain, Severe (7-10)) Qty: 40 0RF Rx Instructions: take 1/2-1 tab every 4 hours as needed for severe breakthrough postop pain Discontinued acetaminophen 325 mg Tablet 650 mg PO Q4HR PRN (Reason: pain) Qty: 30 0RF Follow up/Referrals: Chau Altamirano MD [Physician] - (7-10 days for postoperative visit) Cailin Tee ARNP [Primary Care Provider] - Diet/Activity/Treatments Diet: Diet as Tolerated Other treatments: Dressing/Wound care: -Keep dressing in place until postoperative follow-up office visit. -Okay to shower. Keep wound out of direct water stream. Can use PressNSeal plastic wrap to protect from shower stream. No soaking or submerging until all the scabs fall off (approximately 6 weeks). -Please call the office if dressing becomes wet, soiled, or saturated. Activities: -Limit bending, lifting, twisting x6 weeks. No deep bending (more than 90 degrees) or twisting at the waist. No lifting > 20 pounds. -Walk frequently. -Weight-bearing as tolerated. Use front wheeled walker, and progress to cane when safe. -Continue with home exercises as directed by your physical therapist. -Ice your incision as needed for pain/inflammation/swelling. Protect your skin with a folded pillowcase. Follow-up: -Follow-up with your surgeon or PA in the office in 10-14 days after surgery. -Follow-up with your surgeon 6 weeks postoperatively. Call the office if you have chest pain, shortness of breath, significant swelling that will not resolve with elevating, fever over 101?, significantly worsening pain. [facility]: [phone] Skin/Wound/Dressing Care Report to your healthcare provider any signs of infection, such as:: chills, fever, night sweats, unusual drainage and unusual redness [facility] Reason for rehabilitation: Post-operative therapy Rehab type: Physical therapy and Occupational therapy Visit Report/Discharge Packet Instructions: DI for Prescription Opioid Use Discharge Data Primary Care Provider: Cailin Tee Attending Provider: India Fisher
--- NOTE | 2021-07-02 13:00 | CM.DPC ---
Addendum entered by Tere Fisher R.N. 07/02/21 13:57: ISAURA spoke with Dionne at [facility] supervisor time is at 3pm, patients nurse notified, Wash Tub Machine Operator notified, PASRR completed and given to Erica HARMON to send to August. nurse report number is Julio at [phone]. Tere Fisher RNback up scan coordinator Original Note: DCP continued: [place] approved SNF auth reference number [id number] for [place]. ISAURA called Dionne at [facility] who stated she will be able to accept the patient today at 3pm. Cm updated [facility] and nursing about DC to SNF today. Isaura spoke with CLARISSE knapp who stated she is Dc the patient to SNF today. ISAURA spoke with family and let them know DC plan. ISAURA asked EDEN olivier to send clinical information to dionne and get DC prepared. Tere Fisher RNmajor gifts manager
--- NOTE | 2021-07-02 14:37 | PC.NURSE ---
Addendum entered by Erick Arreola R.N. 07/02/21 15:09: patient escorted to facility by transporter via wheelchair. Patient left in stable condition. Son King walking over with patient. Belongings in hand of patient. Original Note: Report called to nikki de la cruz nurse. Patient IV removed, lilly. well. First dose of Keflex was given prior to d/c, facility is aware.
[2021-07-02] MEDS: cephALEXin 250 MG CAPSULE 500 MG PO (14:46)
[2021-07-02 15:09] LABS: COVID19 -Nasal RAPID Negative (Negative)
== END 2021-07-02 15:15 ==
LOC: ED 07-01 01:47 → AC 07-01 01:57
PROVIDERS: Admitting Provider Orthopaedic Surgery; Emergency Provider Emergency Medicine; PCP Registered Nurse; Referring Provider Emergency Medicine; Visit Provider Orthopaedic Surgery
DX: R53.1 Weakness (principal); W18.30XA Fall on same level, unspecified, initial encounter; R29.6 Repeated falls; Y92.009 Unspecified place in unspecified non-institutional (private) residence as the place of occurrence of the external cause; Z98.1 Arthrodesis status; R41.0 Disorientation, unspecified; N39.0 Urinary tract infection, site not specified; B96.89 Other specified bacterial agents as the cause of diseases classified elsewhere; I10 Essential (primary) hypertension; F32.9 Major depressive disorder, single episode, unspecified; E66.9 Obesity, unspecified; Z20.822 Contact with and (suspected) exposure to COVID-19; Z23 Encounter for immunization
CPT/HCPCS: 36415; 70450; 72100; 80053; 81001; 85025; 87077; 87086; 87186; 87635; 90471; 90662; 93005; 93010; 97110; 97162; 97165; 97530; 99284; C9803; G0378

== ENCOUNTER → 2021-07-05 15:47 | Outpatient (ROUT) | payer OTHER, SELFPAY ==
[2021-07-01 02:53] VITALS: BMI 39.0
[2021-07-05 16:13] LABS: Bilirubin Urine UA NEGATIVE (NEGATIVE); Color Urine UA YELLOW; Glucose Urine UA TRACE g/dL (Negative); Ketones Urine UA NEGATIVE (NEGATIVE); Leukocyte Esterase Urine UA 1+ (NEGATIVE); Nitrite Urine UA NEGATIVE (Negative); Occult Blood Urine UA TRACE-LYSED (Negative); Protein Urine UA TRACE (Negative)
[2021-07-05 16:20] LABS: Amorphous Sediment Urine 1+; Bacteria Urine Few (2-10); Culture Indicated Urine Cult Not Indicated; RBC Urine None Seen (0-5/HPF); Squamous Epithelial Cell Urine 5-10 /HPF (0-5/HPF); WBC Urine 5-10/HPF (0-5/HPF)
[2021-07-05 16:21] LABS: Appearance Urine UA Slightly Cloudy
== END ==
PROVIDERS: PCP Registered Nurse; Visit Provider Emergency Medicine
DX: R35.0 Frequency of micturition (principal)
CPT/HCPCS: 81001

== ENCOUNTER → 2023-03-11 15:38 | Outpatient (CLI) | payer OTHER, SELFPAY ==
[2021-07-01 02:53] VITALS: BMI 39.0
[2023-03-11 17:27] LABS: Add Manual Diff / Slide Review NO; Basophils Absolute Auto 0 /uL (0-100); Basophils Percent Auto 0.3 % (0-2); Eosinophils Absolute Auto 100 /uL (0-450); Eosinophils Percent Auto 1.6 % (2-4); Hematocrit 36.1 % (36-46); Hemoglobin 12.8 g/dL (12.0-16.0); Lymphocytes Absolute Auto 2200 /uL (1100-4500); Lymphocytes Percent Auto 30.1 % (25-40); Mean Corpuscular HGB Conc 35.4 % (30-36); Mean Corpuscular Hemoglobin 31.7 PG (26-34); Mean Corpuscular Volume 89.4 fL (80-100); Monocytes Absolute Auto 500 /uL (0-900); Monocytes Percent Auto 6.9 % (3-14); Neutrophils Absolute Auto 4400 /uL (1500-7000); Neutrophils Percent Auto 61.1 % (50-75); Platelet Count 238 X10^3/uL (150-400); Red Blood Cell Count 4.04 X10^6/uL (4.0-5.2); Red Cell Distribution Width 13.2 % (11.6-14.8); White Blood Cell Count 7.3 X10^3/uL (4.5-11.0)
[2023-03-11 17:39] LABS: Hemoglobin A1C% w Est Avg Glu 4.9 % (4.0-6.0)
[2023-03-11 17:44] LABS: Appearance Urine UA CLOUDY; Bilirubin Urine UA NEGATIVE (NEGATIVE); Color Urine UA YELLOW; Glucose Urine UA NEGATIVE (Negative); Ketones Urine UA TRACE (NEGATIVE); Leukocyte Esterase Urine UA 2+ (NEGATIVE); Nitrite Urine UA NEGATIVE (Negative); Occult Blood Urine UA NEGATIVE (Negative); Protein Urine UA NEGATIVE (Negative); Specific Gravity Urine UA 1.015 (1.000-1.035); Urobilinogen Urine UA 0.2 E.U./dL (0.2)
[2023-03-11 17:46] LABS: pH Urine UA 6.5 (4.5-8.0)
[2023-03-11 17:48] LABS: BUN Creatinine Ratio 15.3 (6-22); Blood Urea Nitrogen 13 mg/dL (7-17); Calcium 9.7 mg/dL (8.4-10.2); Carbon Dioxide 28 mmol/L (22-32); Chloride 102 mmol/L (98-107); Estimated Glomerular Filt Rate > 60 mL/min (>60); Glucose 85 mg/dL (80-110); HEMOLYSIS < 15 (0-50); Potassium 4.2 mmol/L (3.4-5.1); Sodium 139 mmol/L (137-145)
[2023-03-11 17:54] LABS: Bacteria Urine Moderate (10-30); Culture Indicated Urine Specimen Cultured; RBC Urine None Seen (0-5/HPF); Squamous Epithelial Cell Urine 5-10 /HPF (0-5/HPF); WBC Urine 5-10/HPF (0-5/HPF)
== END ==
PROVIDERS: PCP Registered Nurse; Referring Provider Orthopaedic Surgery Adult Reconstructive Orthopaedic Surgery; Visit Provider Orthopaedic Surgery Adult Reconstructive Orthopaedic Surgery
DX: Z01.818 Encounter for other preprocedural examination (principal); R73.9 Hyperglycemia, unspecified; Z01.812 Encounter for preprocedural laboratory examination; N39.0 Urinary tract infection, site not specified
CPT/HCPCS: 36415; 80048; 81001; 83036; 85025; 87077; 87086; 87186; 93005; 93010

== ENCOUNTER → 2023-05-21 14:38 | Outpatient (CLI) | payer OTHER, SELFPAY ==
[2021-07-01 02:53] VITALS: BMI 39.0
--- NOTE | 2023-05-21 15:05 | DI.DEXA.S_ITS ---
Bone Density Report Name: PRABHA ROLAND Age: 72 Sex: Female Ethnicity: White Date of : 1950 Indication: postmenopausal; screening for osteoporosis; parental hip fracture; Referring Provider: AVE CUELLAR Study: Bone densitometry was performed. Exam Date: May 21, 2023 Accession number: [id number] Bone Density: Region BMD T-score Z-score Classification AP Spine(L1, L2, L3) 1.093 0.7 2.8 Normal Femoral Neck (Left) 0.636 -1.9 0.0 Osteopenia Total Hip (Left) 0.832 -0.9 0.7 Normal Femoral Neck (Right) 0.590 -2.3 -0.5 Osteopenia Total Hip (Right) 0.844 -0.8 0.8 Normal Total Hip Mean 0.838 -0.9 0.8 Normal World Health Organization criteria for BMD impression classify patients as: Normal (T-score at or above -1.0), Osteopenia (T-score between -1.0 and -2.5), or Osteoporosis (T-score at or below -2.5). 10-year Fracture Risk(1): Major Osteoporotic Fracture 20% Hip Fracture 7.2% Reported Risk Factors: [place] (), Neck BMD=0.590, BMI=35.5, parental fracture (1) FRAX(R) Version 3.08. Fracture probability calculated for an untreated patient. Fracture probability may be lower if the patient has received treatment. Impression: The patient has low bone mass, based on the Right Femoral Neck T-score. The patient has an estimated ten-year risk of hip fracture of 7.2% and an estimated ten-year risk of major fracture of 20%, based on the WHO FRAX algorithm. The patient has risk factors, including: parental hip fracture. Discussion: BONE DENSITY IS LOW AT ONE OR MORE SKELETAL SITES. THE PATIENT'S BMD AND CLINICAL RISK FACTORS CONTRIBUTE TO THIS PATIENT'S HIGH RISK OF FRACTURE. This patient's lowest T-score is low at one or more skeletal sites. It meets the World Health Organization's (WHO) criteria for ?low bone mass? (T-score between -1.0 and -2.5). The patient's 10-year risk of hip fracture and 10 year risk of a major osteoporotic fracture as calculated by FRAX exceeds the threshold where pharmacological therapy is recommended by the National Osteoporosis Foundation (NOF). However, all treatment decisions require clinical judgment and consideration of individual patient factors, including patient preferences, comorbidities, previous drug use, risk factors not captured in the FRAX model (e.g., frailty, falls, vitamin D deficiency, increased bone turnover, interval significant decline in bone density) and possible under or overestimation of fracture risk by FRAX. The patient should follow a healthful lifestyle (good nutrition with adequate calcium and vitamin D, and appropriate weight-bearing exercise). Follow-Up: Consider a repeat BMD and Vertebral Fracture Assessment (VFA) exam in 2 years or sooner if medically necessary, to reassess this patient's status. Reported by: JERAMY LOVING M.D. on 05/21/2023 3:15:00 PM.
== END ==
PROVIDERS: PCP Registered Nurse; Referring Provider Orthopaedic Surgery Adult Reconstructive Orthopaedic Surgery; Visit Provider Orthopaedic Surgery Adult Reconstructive Orthopaedic Surgery
DX: M81.0 Age-related osteoporosis without current pathological fracture (principal)
CPT/HCPCS: 77080

== ENCOUNTER 2023-05-22 06:01 | Day surgery (SDC) | payer OTHER, SELFPAY ==
[2021-07-01 02:53] VITALS: BMI 39.0
[2023-05-13 13:34] VITALS: BMI 36.6
[2023-05-22] VITALS (17 sets, daily range): BP systolic 97–170; BP diastolic 60–94; PULSE 61–94; RESP 13–22; TEMP 35.6–37.6; O2SAT 91–100; BMI 35.5
--- NOTE | 2023-05-22 | DI.RAD.S_ITS ---
PROCEDURE: XR HIP W PEL IF DONE LT 2V INDICATIONS: LT TOTAL HIP TECHNIQUE: AP pelvis and lateral view of the hip acquired. COMPARISON: [facility], [place], XR HIP W PEL IF DONE LT 2V, 05/22/2023, 9:06. FINDINGS: Bones: Patient is status post left hip arthroplasty, with hardware components in expected positions. No fracture or subluxation seen Soft tissues: Overlying postoperative changes are noted. Note is made of uterine fibroids IMPRESSION: Post-operative appearance of a hip arthroplasty. Dictated by: Foreign Alexander M.D. on 05/22/2023 at 13:09 Approved by: Foreign Alexander M.D. on 05/22/2023 at 13:10
--- NOTE | 2023-05-22 06:00 | DI.RAD.S_ITS ---
PROCEDURE: XR HIP W PEL IF DONE LT 2V INDICATIONS: post-op TECHNIQUE: Fluoroscopic guidance utilized for a left total hip arthroplasty. COMPARISON: None. FINDINGS: Fluoroscopic images submitted for a left total hip arthroplasty. Please see operative note for further discussion. IMPRESSION: Fluoroscopic guidance. Dictated by: Henri Gonzalez M.D. on 05/22/2023 at 13:09 Approved by: Henri Gonzalez M.D. on 05/22/2023 at 13:10
[2023-05-22] MEDS: ACETAMINOPHEN 325 MG TABLET 975 MG PO (07:09)
[2023-05-22] MEDS: MELOXICAM 7.5 MG TABLET PO (07:10)
[2023-05-22] MEDS: LACTATED RINGERS 1,000 ML 42 ML IV ×2 (07:10→10:00)
--- NOTE | 2023-05-22 07:36 | P.HP_ITS ---
History of Present Illness History of Present Illness Date Patient Seen: 05/22/23 Time Patient Seen: 07:36 Chief complaint: OPB Narrative: Patient presents for planned elective left total hip arthroplasty. No changes in condition of pain since she was last seen preoperatively. No new health conditions. Continues to complain of left groin pain which is exacerbated by movement and partially relieved by rest PFSH Medical History Chronic diarrhea Fecal incontinence Internal hemorrhoids Neck pain with history of cervical spinal surgery Neuropathy Poor balance Recent urinary tract infection Spinal stenosis of lumbar region Spondylolisthesis, lumbar region Tortuous colon Surgical History History of colonoscopy History of lumbar spinal fusion (06/06/20) S/P epidural steroid injection Status post cervical spinal fusion (05/25/14) Social History household members: children Smoking Status: Former smoker alcohol intake: current Meds Home Medications and Allergies Home Medications Medication Instructions Recorded Confirmed Type bupropion HCl 150 mg 24 hr tablet, 150 mg PO DAILY 02/22/20 05/22/23 History extended release bupropion HCl 300 mg 24 hr tablet, 300 mg PO DAILY 02/22/20 05/22/23 History extended release gabapentin 600 mg tablet 600 mg PO DAILY 02/22/20 05/22/23 History pantoprazole 40 mg tablet,delayed 40 mg PO DAILY 02/22/20 05/22/23 History release (Protonix) budesonide 3 mg 3 mg PO PRN PRN Anxiety 06/05/20 05/22/23 History capsule,delayed,extended release loperamide 2 mg capsule 4 mg PO QID PRN Diarrhea 06/05/20 05/13/23 History quetiapine 25 mg tablet (Seroquel) 25 mg PO DAILY 06/05/20 05/22/23 History valsartan 160 mg tablet 160 mg PO DAILY 06/05/20 05/22/23 History cephalexin 250 mg capsule 250 mg PO DAILY 05/13/23 05/22/23 History Allergies Allergy/AdvReac Type Severity Reaction Status Date / Time adhesive tape AdvReac Mild Red, itchy Verified 05/22/23 06:48 Review of Systems Review of Systems ROS: Yes All systems reviewed with the patient and are negative except as oth erwise documented Exam Vital Signs (past 8 hours): - 05/22/23 07:00 Temperature 97.8 F Pulse Rate 77 Respiratory Rate 18 Blood Pressure 170/83 H Pulse Oximetry 100 Oxygen Delivery Method Room Air Oxygen Delivery Method Room Air Narrative Exam Narrative: Left lower extremity: Sensation intact to light touch in L2 through S1 nerve distributions. Flexes extends hallux and ankle Const General: cooperative Orientation: alert and awake HENMT Head: normal to inspection Ears: hearing grossly normal bilaterally Eyes General: appearance normal, both eyes and all related structures Neck Neck: normal visual inspection Resp Effort & Inspection: normal respiratory effort and able to speak in complete sentences Cardio Pulses: other (peripheral pulses present) Skin Lesions: no lesions Rashes: no rashes Neuro General: patient alert, patient awake and moves all extremities Psych Appearance: grossly normal Assessment & Plan Assessment and plan (1) Primary osteoarthritis of left hip: Status: Acute Plan Left total hip arthroplasty today Dual mobility given spinal fusion Cemented stem given T-score of -1.9 in operative hip Mobilize postoperatively with plans for discharge home
[2023-05-22] MEDS: CEFAZOLIN 2 GM/100 ML PREMIX 100 ML IV ×2 (08:15→16:17)
[2023-05-22] MEDS: TRANEXAMIC ACID 1,000 MG VIAL 1000 MG INJ ×2 (08:30→09:47)
--- NOTE | 2023-05-22 08:44 | SUR.OPER ---
Supine on padded [place] table with bilateral legs secured in padded positioning boots and suspended in positioning spars, operative leg in traction per surgeon. Head on one pillow. Arm on non-operative side secured on padded armboard <90 degrees abduction. Arm on operative side padded and resting across chest then secured with tape over sheet. Padded perineal post in place per surgeon.
[2023-05-22] MEDS: ROPIVACAINE/EPI/CLONIDINE/KET 50 ML SYRINGE INJ (09:03)
[2023-05-22] MEDS: EPINEPHrine 1 MG/ML SUBCUT (09:28)
[2023-05-22 09:44] LABS: Add Manual Diff / Slide Review NO; Basophils Absolute Auto 0 /uL (0-100); Basophils Percent Auto 0.7 % (0-2); Eosinophils Absolute Auto 100 /uL (0-450); Eosinophils Percent Auto 1.6 % (2-4); Hematocrit 36.3 % (36-46); Hemoglobin 12.7 g/dL (12.0-16.0); Lymphocytes Absolute Auto 2000 /uL (1100-4500); Lymphocytes Percent Auto 33.2 % (25-40); Mean Corpuscular HGB Conc 35.1 % (30-36); Mean Corpuscular Hemoglobin 32.3 PG (26-34); Mean Corpuscular Volume 92.1 fL (80-100); Monocytes Absolute Auto 500 /uL (0-900); Monocytes Percent Auto 8.4 % (3-14); Neutrophils Absolute Auto 3500 /uL (1500-7000); Neutrophils Percent Auto 56.1 % (50-75); Platelet Count 189 X10^3/uL (150-400); Red Blood Cell Count 3.94 X10^6/uL (4.0-5.2); Red Cell Distribution Width 13.9 % (11.6-14.8); White Blood Cell Count 6.2 X10^3/uL (4.5-11.0)
[2023-05-22 09:51] LABS: Prothrombin Time 11.3 SECONDS (9.4-12.5)
[2023-05-22 09:56] LABS: Alanine Aminotransferase 19 IU/L (<35); Albumin 4.2 g/dL (3.5-5.0); Albumin Globulin Ratio 1.1 (1.0-2.8); Alkaline Phosphatase 60 U/L (38-126); Aspartate Aminotransferase 30 IU/L (14-36); Bilirubin Total 0.9 mg/dL (0.2-1.3); Blood Urea Nitrogen 12 mg/dL (7-17); Calcium 9.4 mg/dL (8.4-10.2); Carbon Dioxide 21 mmol/L (22-32); Chloride 107 mmol/L (98-107); Estimated Glomerular Filt Rate > 60 mL/min (>60); Globulin 3.7 g/dL (1.7-4.1); Glucose 93 mg/dL (80-110); HEMOLYSIS 15 (0-50); Potassium 3.9 mmol/L (3.4-5.1); Sodium 139 mmol/L (137-145); Total Protein 7.9 g/dL (6.3-8.2)
--- NOTE | 2023-05-22 10:51 | PM.OP.1 ---
Operative Date/Time/Diagnoses Date of procedure: 05/22/23 Pre-op diagnosis: Left hip arthritis, osteopenia, prior lumbar fusion Post-op diagnosis: same Procedure & Clinicians Procedure: Cemented dual mobility left total hip arthroplasty through anterior approach Same procedure as scheduled: Yes Surgeon: Pj Boles Tree Planter: Sherly Reynoso Anesthesia Type: Epidural, Sedation and Local Operative Notes Estimated Blood Loss (mL): 400 Procedure in detail: Implants: ? Depuy Bimentum size 53 cup ? Depuy cemented C-Stem femoral stem size 3 high offset ? 28+ 1.5 ceramic femoral head with 53/28 Bimentum dual mobility articulating liner Procedure Summary: 72-year-old female with prior L4-S1 posterior spinal fusion and a T-score of -1.9 in her left hip on a DEXA scan which I obtained the day before surgery. Given her lumbosacral stiffness I utilized a mono block dual mobility cup. Given her borderline osteopenia utilized a polished tapered cemented stem. Initial trials with the templated sizes had appropriate leg length offset and stability and therefore this was placed without additional trialing. I did note that her bone quality was quite poor, correlating with her DEXA scan results. Procedure in Detail: This patient was seen preoperatively and evaluated for hip pain which was refractory to numerous nonoperative treatment modalities. Their hip pain correlated with radiographic changes demonstrating significant degeneration in the hip joint. The risks and benefits of continued nonoperative management versus operative management were discussed at length and all of the patient?s questions were answered. Additional educational materials providing further details beyond our discussion in clinic were provided via a publicly available patient education video which included the incidence of medical complications associated with total hip arthroplasty, reasons for revision following total hip arthroplasty, and patient satisfaction rates following total hip arthroplasty. That video can be accessed at ?[email or web address] . With this understanding of the risks inherent to the procedure, the patient elected to move forward with operative management. Following preoperative optimization, the patient was scheduled for surgery. The patient was met in the preoperative holding area the day of the procedure and all questions were answered. The patient?s nares were swabbed with betadine in order to decolonize them from MRSA. Informed consent was signed and the operative limb was marked with indelible ink. The patient was brought back to the operating room where anesthesia was induced. The patient was transferred to the [place] table and all bony prominences were padded. The operative site was prepped and draped in the usual sterile fashion. Prior to incision, tranexamic acid and cefazolin were administered. Operative templating images were displayed demonstrating the anticipated implant sizes and correct operative extremity. A timeout procedure was performed verifying the patient?s identity, medical comorbidities, allergies, relevant medications, anesthesia type and the surgical plan. All present were in agreement. The assistance of a physician yard assistant was required for positioning, room setup, soft tissue retraction and wound closure. Without this assistance, the procedure would have been significantly more challenging and time consuming. ? A direct anterior approach to the hip was utilized. This was performed with a longitudinal incision through a Heuter interval. The incision was planned 2 cm distal and 2 cm lateral to the ASIS extending towards the lateral patella, in line with the muscle body of the TFL. Following incision, the subcutaneous tissue was dissected while taking care to avoid injury to the lateral femoral cutaneous nerve. The fascia overlying the TFL was identified by dissecting off the overlying fat and identifying perforating vessels to the TFL. The TFL fascia was incised and dissected away from the medial border of the TFL. A cobra retractor was placed over the superior femoral neck between the abductors and the hip capsule and used to reflect the TFL laterally. A [place] self-retainer was then placed in the distal aspect of the wound between the TFL and the rectus femoris. This was tensioned to open up the direct anterior interval and the lateral circumflex vessels were identified and coagulated using electrocautery. The floor of the TFL fascia was incised, exposing the pericapsular fat overlying the hip capsule. A second cobra retractor was placed on the inferior femoral neck. A double-bent soft tissue retractor was placed on the anterior wall of the acetabulum and used to tension the reflected head of rectus femoris, which was then released in order to limit soft tissue tension. A capsulotomy was made in the midline of the anterior hip capsule in line with the femoral neck ending at the vastus tubercle. The double-bent retractor was removed in order to limit the amount of time that a soft tissue retractor remained on the anterior wall and protect the femoral nerve. Tag stitches were placed in the superior and inferior leaflets of the hip capsule. An David soft tissue retractor was introduced over the tag stitches and tensioned in the interval between the rectus femoris and the TFL in order to retract and protect those muscles. The cobra retractors were replaced intracapsularly, with one over the superior neck in the pocket created by the base of the greater trochanter and the other on the femoral head. The capsulotomy was extended laterally to the base of the greater trochanter and medially to the lesser trochanter. This required externally rotating the hip. Once the lesser trochanter had been identified, a neck cut was planned according to measurements from preoperative templating. A ruler was cut at the length measured between the superior aspect of the lesser trochanter and the collar of the prosthesis. This line was extended towards the inferior aspect of the lateral cobra retractor to plan a cut which would leave minimal residual femoral neck laterally. The neck was cut at 60 degrees of external rotation along that line. A second cut was performed to remove a large napkin ring and facilitate head extraction. The napkin ring cut and femoral head were removed. ? A broad anterior wall retractor was placed between the labrum and the anterior capsule so that the anterior capsule would prevent capturing and pinching the femoral nerve anteriorly. An additional retractor was placed on the posterior wall. External rotation and traction were applied through the [place] table so that the cut surface of the femoral neck would not restrict access to the acetabulum. The labrum was excised sharply and the pulvinar was excised with electrocautery to limit bleeding from branches of the obturator artery. Acetabular reamers were selected based on preoperative templating and measurements of the excised femoral head. These were introduced into the acetabulum. Fluoroscopy was utilized to replicate a standing AP pelvis radiograph by centering over the pelvis, rotating until there was appropriate symmetry between the obturator foramen, and introducing caudal tilt to match the position of the pubic symphysis relative to the sacrococcygeal junction according to the patient?s anatomy. Fluoroscopy was utilized to ensure appropriate reaming depth. Once satisfied with the reaming depth corresponding to the preoperative template and the pinch fit between the columns, an appropriate sized acetabular cup was selected which would provide 1 mm of press-fit. This cup was introduced and manipulated until appropriate abduction and anteversion angles were obtained with careful attention to appropriate abduction and anteversion angles as evaluated by the position of the cup relative to the anterior and posterior mondragon of the acetabulum and the AP fluoroscopy which recreated the patient?s standing radiograph. The cup was impacted into place. Peripheral osteophytes were removed. Attention was then turned to the femur. All retractors were removed, traction was released, a retractor was placed in the interval between the hip capsule and the gluteus minimus, and the hip was externally rotated to 90 degrees. Traction was applied through the [place] table to tension the lateral capsule and this was released using electrocautery. Traction was released and a [place] hook was placed posteriorly around the proximal femur at the level of the vastus ridge. The table height was lowered in order to restrict the tension on the anterior structures during hip hyperextension to limit the risk of femoral nerve palsy. With traction off and the hip at 90 degrees of external rotation, the hip was hyperextended and adducted while manually elevating the femur away from the acetabulum with the [place] hook to ensure it would not be caught behind the greater trochanter. An asymmetric retractor was placed over the calcar and a broad double-pronged retractor was placed over the greater trochanter. The tag stitch capturing the lateral leaflet of the capsule was moved to the medial side, leaving the conjoined and piriformis tendons isolated in the face of the greater trochanter. The hip was externally rotated and elevated. A release of the conjoined tendon was utilized in order to obtain additional exposure for broaching given her poor bone quality. The canal was opened with a rasp which was used to remove cancellous bone. A rongeur was used to remove the residual lateral bone at the base of the greater trochanter to avoid placing the stem in varus. The femur was then broached to the appropriate sized stem yielding good rotational fit and fill of the canal as well as appropriate version of the stem trial. Neck and head trials were placed, all retractors were removed and the hip was returned to neutral abduction and extension. I then reduced the hip. An AP pelvis fluoroscopic image matching the preoperative standing radiograph was obtained with both lesser trochanters visible and both hips in 40 degrees of external rotation. This demonstrated appropriate leg length and offset. An AP hip fluoroscopic image was obtained with the hip in neutral rotation which demonstrated appropriate stem fill. Hip stability was evaluated with 90 degrees of external rotation and a 45 degree drop test which demonstrated appropriate stability. The hip was dislocated and I returned to the broaching position. The canal was copiously irrigated with a canal brush. The cement restrictor was placed. The canal was irrigated again. Epinephrine-soaked vaginal packing was placed down the canal. A whistle-tip catheter was placed down the canal. Cement was placed down the canal and digitally pressurized. It was then pressurized using the gun. The definitive stem was placed down the canal with a valgus force to ensure it did not rest in a varus position. The cement was allowed to dry for 15 minutes. The trunnion was cleaned and dried. I placed a ceramic head onto the trunnion and impacted it into place on the [place] taper. ? All retractors were removed and the hip was reduced. A dilute mixture of betadine and peroxide was used to bathe the soft tissues during final fluoroscopic assessment. Appropriate component positioning was confirmed on an AP pelvis radiograph with the operative and nonoperative legs in 40 degrees of external rotation, evaluating leg length and offset. Appropriate stem fill was evaluated on an AP hip radiograph with the operative leg in neutral rotation. No fractures were identified on these radiographs. Stability was satisfactory with a 90 degree external rotation test as well as a 45 degree drop test. The hip was copiously irrigated with pulse lavage. The capsule was closed with absorbable interrupted suture. The TFL fascia was closed with barbed suture while carefully protecting the lateral femoral cutaneous nerve from entrapment. A mixture of Ropivacaine, Epinephrine, Clonidine and Toradol was infiltrated throughout the soft tissues. The skin was closed with 2-0 and 3-0 sutures. Surgical glue was applied and a soft dressing was placed. ? The sponge, instrument and needle counts were reported as being correct at the end of the case. ?No obvious complications occurred. The patient was transferred from the [place] table back to a stretcher. The patient emerged from anesthesia without difficulty and was taken to the PACU in a stable condition. Plan for aftercare: ? ? Anterior hip precautions ? Transfer to floor following recovery in PACU ? Transition from hospital gown to regular clothing immediately upon arrival on floor ? Weightbearing as tolerated ? ? Mobilization as soon as the patient has recovered from anesthesia. If physical therapists are unavailable at the time the patient is ready to ambulate, then nursing staff should help patient ambulate ? Aspirin 81 twice per day for DVT prophylaxis ? Multimodal pain regimen with no IV opioids ordered ? Anticipate discharge home tomorrow morning ? [facility] up at [facility] in 2 weeks ? Detailed postoperative instructions available at [email or web address]
[2023-05-22] MEDS: LACTATED RINGERS 1,000 ML 100 ML IV ×2 (11:00→21:27)
--- NOTE | 2023-05-22 12:59 | PC.NURSE ---
Addendum entered by Silvana Pandey R.N. 05/22/23 18:45: Stable post op course. Denies discomfort. SBA to BR w/o incident. Call light w/in reach, bed alarm on for pt safety Continue w/plan of care. Original Note: Pt arrived 1040 post op Left ant. hip A/O, denies discomfort IVF infusing at 100cc/hr as per orders w/o incident Resting quietly at this time. Call light w/on reach, bed alarm on for pt safety. Contiue w/plan of care.
--- NOTE | 2023-05-22 14:00 | PT.IIE ---
Current Diagnoses Unilateral primary osteoarthritis, left hip (05/22/23) Surgery Performed Operation Date: 05/22/23 07:45 Actual Procedures p Total Hip Arthroplasty/Anterior Approach(Left) - Pj Boles MD Surgical History (Last Reviewed 07/02/21 @ 14:17 by Tona Loaiza PA-C) History of colonoscopy History of lumbar spinal fusion (06/06/20) S/P epidural steroid injection Status post cervical spinal fusion (05/25/14) Medical History (Last Reviewed 07/02/21 @ 14:17 by Tona Loaiza PA-C) Chronic diarrhea Fecal incontinence Internal hemorrhoids Neck pain with history of cervical spinal surgery Neuropathy Poor balance Recent urinary tract infection Spinal stenosis of lumbar region Spondylolisthesis, lumbar region Tortuous colon Physical Therapy Inpatient Evaluation/Re-Eval M1 PT/OT-IP Prior Functional Status Start: 05/22/23 15:52 Freq: NEEDED Status: Active Protocol: Document 05/22/23 14:00 AB (Rec: 05/22/23 16:07 AB [id number]) Medical Review Prior Functional Status Medical History Reviewed Yes Communication able to make needs known Mobility and Gait pt stated that she was modified independent with all mobilities and ambulation using a 4WW indoors and FWW outdoors Social History Household Members children Living Arrangements House Number of Floors (Floors) One Floor Number of Stairs To Enter/Railing? 2 platform steps to enter the house Home Environment Standard Height Toilet,Walk in Shower Home Equipment Front Wheel Walker,Four Wheel Walker,Shower Seat with Backrest,Hand Held Shower,Grab Bars Near Toilet,Grab Bars In Shower Additional Social History Comment pt lives with her son and son will assist pt M2 PT-IP Current Condition Start: 05/22/23 15:52 Freq: NEEDED Status: Active Protocol: Document 05/22/23 14:00 AB (Rec: 05/22/23 16:07 AB [id number]) Physical Therapy Current Condition Current Condition Evaluation Date 05/22/23 Treatment Diagnosis s/p L CHILANGO anterior; difficulty in walking Onset Date 05/22/23 M3 PT-IP Subjective Start: 05/22/23 15:52 Freq: NEEDED Status: Active Protocol: Document 05/22/23 14:00 AB (Rec: 05/22/23 16:07 AB [id number]) Subjective Physical Therapy Visit Type Type Initial Evaluation Visit Start Time 14:00 Visit Stop Time 15:20 Number of PHYSICAL ANTHROPOLOGIST Visits 0 Physical Therapy Visit Comments Patient Comments pt is agreeable to do PT Therapy Pain Assessment Pain Present Pain Present Pain Reported Location Groin Scale Used pain scale not stated M4 PT-IP Mobility and Gait Start: 05/22/23 15:52 Freq: NEEDED Status: Active Protocol: Document 05/22/23 14:00 (Rec: 05/22/23 16:07 [id number]) PT-Bed Mobility Assessment Supine to Sit Supine to Sit Moderate Assistance Sit to Supine Sit to Supine Minimal Assistance PT-Transfer Assessment Sit to and From Stand Sit to and from Stand Minimal Assistance,1 Person Assistance,Use of Upper Extremities Equipment Transfer Assistive Device Gait Belt,Front Wheeled Walker Orthotic/Prosthetic Devices or Brace: No Transfers Transfer Destination Toilet Transfer Technique ambulated Transfer Ability Level of Assist Contact Guard Assistance, Minimal Assistance Comments Mobility Comments pt supine in bed and agreeable to do PT. pt's son in room. obtained PLOF and home set up from pt. post-op folder provided and reviewed contents . educated pt on hip precautions and pt initially require cues to recall. BP in supine: 138/76. O2 sat with 1L/min O2: 93-95%. pt completed supine to sit mod A. pt with h/o back sx and usually does log roll bed mobility. cued pt for safety and hip precautions while doing log roll. pt able to sit on EOB CGA. pt without c/o dizziness. pt completed sit to stand CGA to min A and pt ambulated to the toilet using FWW CGA to min A. pt able to use the toilet SBA. sit to stand from the toilet CGA using grab bar. pt ambulated out of the toilet and ambulated in room using FWW ~ 50 ft CGA to min A and cues for hip precautions. pt requested to go back to bed. completed log roll sit to supine min A and cues. positioned pt in bed. call light and table placed within reach. Gait Assessment Gait Gait Assistance Required: Contact Guard Assist,Minimum Assistance Distance (Feet) 50 Able to Maintain Weight Bearing Status Yes During Gait Assistive Devices Assistive Device Gait Belt,Front Wheeled Walker Orthotic/Prosthetic Devices or Brace: No Gait Deviations General Gait Pattern Decreased Feet Clearance Factors Limiting Gait Function Factors Limiting Gait Function Decreased Activity Tolerance, Decreased Strength,Limited Range of Motion,Pain,Poor Balance,Poor Safety Awareness PT-Balance Assessment Sitting Balance and Reactions Static Sitting Balance Ability Normal Dynamic Sitting Balance Ability Good Standing Balance and Reactions Static Standing Balance Ability Fair Dynamic Standing Balance Ability Fair Device Used FWW M5 PT-IP Objective Assessments Start: 05/22/23 15:52 Freq: NEEDED Status: Active Protocol: Document 05/22/23 14:00 AB (Rec: 05/22/23 16:07 [id number]) Orientation Orientation/Cognition Level of Alertness Alert Orientation Name,Situation Language Function Ability No Deficits Noted Safety Awareness Decreased Safety Awareness Memory Description Short Term Impaired Gross Range of Motion Lower Extremity ROM Assessment Within Functional Limits Strength Lower Extremity Strength Assessment Left Impaired Hip 3+/5 Knee 4-/5 Coordination Assessment Gross Coordination Gross Coordination WNL Sensation Assessment Sensation Gross Sensation WNL Muscle Tone Muscle Tone WNL Yes M6 PT-IP Treatment Start: 05/22/23 15:52 Freq: NEEDED Status: Active Protocol: Document 05/22/23 14:00 AB (Rec: 05/22/23 16:07 [id number]) Physical Therapy Treatment Education Education Provided Precautions,Weight Bearing Status,Post-Op Packet,Safety M7 PT-IP Assessment and Plan Start: 05/22/23 15:52 Freq: NEEDED Status: Active Protocol: Document 05/22/23 14:00 AB (Rec: 05/22/23 16:07 [id number]) PT Summary Assessment and Plan Potential Rehabilitation Potential Good Status of Condition at Evaluation Stable Summary Impairments Pain,ROM,Strength,Balance, Coordination,Sensation,Tone, Cognition,Bed Mobility, Transfers,Gait,Activity Tolerance Assessment Summary pt is a 72 y/o F s/p L CHILANGO anterior approach POD 0. pt has L hip anterior precautions and is WBAT. pt requiring min to mod A for bed mobility, CGA to min A for transfers and ambulation using FWW and cues for hip precautions. caregiver training set up for tomorrow at 9 am. will continue to assess. Goals Bed Mobility Goal Independent Transfer Goal Independent,Front Wheeled Walker,Four Wheeled Walker Gait Goal Independent,Front Wheel Walker ,Four Wheel Walker Gait Distance 200 Other Goals up/down 2 platform steps using FWW SBA Days to Meet Goals 5 Frequency of Treatment Frequency Of Treatment Twice a Day Treatment Plan Physical Therapy Treatment Plan Bed Mobility Training,Transfer Training,Gait Training, Therapeutic Exercise,Balance Retraining,Post Op Education, Discharge Planning,Hot or Cold Pack,Neuromuscular Re-ed, Coordination Retraining,Manual Therapy Precautions Anterior Hip Precautions No Hip Extension,No Hip External Rotation Weight Bearing Status Weight Bearing Status Weight Bear as Tolerated Allowed Weight Bearing Amount (enter % LLE WBAT or #) (%) Recommendations To Nursing Amount of Assist Needed 1 Person Assist Discharge Recommendations PT Discharge Recommendations Home with Assistance, Outpatient PT Transportation Needs at Discharge Private Vehicle
[2023-05-22] MEDS: OXYCODONE IR 5 MG TABLET PO (20:28)
[2023-05-22] MEDS: ASPIRIN EC 81 MG TABLET PO (20:28)
--- NOTE | 2023-05-22 21:11 | PM.PN.1 ---
Subjective Subjective Interval history: Patient seen postoperatively. Reports that she has ambulated with physical therapy. Reports she has not had any pain since surgery. Flexion and extension intact in hallux and ankle. Dressing is clean dry and intact. Has urinated. Anticipate discharge home tomorrow morning after another physical therapy session Exam Vital Signs (past 8 hours): - 05/22/23 13:57 05/22/23 16:05 05/22/23 20:36 Temperature 97.3 F L 96.7 F L Pulse Rate 61 85 94 H Respiratory Rate 17 Blood Pressure 140/64 132/81 154/72 H Pulse Oximetry 91 93 94 Oxygen Flow Rate 1 1.5 Oxygen Delivery Method Nasal Cannula Oxygen Flow Rate 1.5 Objective Labs 05/22/23 06:40 05/22/23 06:40 Labs: Laboratory Results - last 24 hr 05/22/23 06:40 WBC 6.2 RBC 3.94 L Hgb 12.7 Hct 36.3 MCV 92.1 MCH 32.3 MCHC 35.1 RDW 13.9 Plt Count 189 Neut % (Auto) 56.1 Lymph % (Auto) 33.2 [facility] % (Auto) 8.4 Eos % (Auto) 1.6 L Baso % (Auto) 0.7 Neut # (Auto) 3500 Lymph # (Auto) 2000 [facility] # (Auto) 500 Eos # (Auto) 100 Baso # (Auto) 0 PT 11.3 INR 1.0 Sodium 139 Potassium 3.9 Chloride 107 Carbon Dioxide 21 L BUN 12 Creatinine 0.75 Estimated GFR > 60 BUN/Creatinine Ratio 16.0 Glucose 93 Calcium 9.4 Total Bilirubin 0.9 AST 30 ALT 19 Alkaline Phosphatase 60 Total Protein 7.9 Albumin 4.2 Globulin 3.7 Albumin/Globulin Ratio 1.1 Blood Type B Negative Antibody Screen Negative Antibody Identification Cancelled [facility] Medical History Chronic diarrhea Fecal incontinence Internal hemorrhoids Neck pain with history of cervical spinal surgery Neuropathy Poor balance Recent urinary tract infection Spinal stenosis of lumbar region Spondylolisthesis, lumbar region Tortuous colon Surgical History History of colonoscopy History of lumbar spinal fusion (06/06/20) S/P epidural steroid injection Status post cervical spinal fusion (05/25/14) Social History household members: children Smoking Status: Former smoker alcohol intake: current Quality VTE Deep Vein Thrombosis/Pulmonary Embolism Present on Admission: No
[2023-05-23] MEDS: CEFAZOLIN 2 GM/100 ML PREMIX 100 ML IV (00:05)
[2023-05-23] MEDS: OXYCODONE IR 5 MG TABLET PO ×2 (03:53→08:39)
[2023-05-23] MEDS: ACETAMINOPHEN 325 MG TABLET 650 MG PO (03:54)
[2023-05-23 04:12] VITALS: BP 118/65; PULSE 72; RESP 16; TEMP 36.2; O2SAT 95
[2023-05-23] MEDS: IBUPROFEN 600 MG TABLET PO (04:28)
[2023-05-23 07:42] VITALS: BP 142/77; PULSE 73; RESP 20; TEMP 36.2; O2SAT 97
[2023-05-23] MEDS: QUETIAPINE 25 MG TABLET PO (08:39)
[2023-05-23] MEDS: DOCUSATE 100 MG CAPSULE PO (08:40)
[2023-05-23] MEDS: cephALEXin 250 MG CAPSULE PO (08:40)
[2023-05-23] MEDS: buPROPion XL 150 MG TAB 300 MG PO (08:40)
[2023-05-23] MEDS: buPROPion XL 150 MG TAB PO (08:40)
--- NOTE | 2023-05-23 08:40 | PT.IPTN ---
Current Diagnoses Unilateral primary osteoarthritis, left hip (05/22/23) Surgery Performed Operation Date: 05/22/23 07:45 Actual Procedures p Total Hip Arthroplasty/Anterior Approach(Left) - Pj Boles MD Physical Therapy Treatment Note M2 PT-IP Current Condition Start: 05/22/23 15:52 Freq: NEEDED Status: Discharge Protocol: Document 05/22/23 14:00 AB (Rec: 05/22/23 16:07 AB [id number]) Physical Therapy Current Condition Current Condition Evaluation Date 05/22/23 Treatment Diagnosis s/p L CHILANGO anterior; difficulty in walking Onset Date 05/22/23 M3 PT-IP Subjective Start: 05/22/23 15:52 Freq: NEEDED Status: Discharge Protocol: Document 05/23/23 08:40 AB (Rec: 05/23/23 13:08 AB [id number]) Subjective Physical Therapy Visit Type Type Treatment Note Visit Start Time 08:40 Visit Stop Time 09:25 Number of PIPE BENDING MACHINE OPERATOR Visits 0 Physical Therapy Visit Comments Patient Comments agreeable to do PT Therapy Pain Assessment Pain When Pain Assessed At Rest Pain Present Pain Present Pain Reported Location Left Hip Intensity 4 Scale Used Numeric (0 - 10) Pain Management Techniques Apply Cold,Distraction, Modification of Treatment,Re- positioning,Timing of Activity with Medications M4 PT-IP Mobility and Gait Start: 05/22/23 15:52 Freq: NEEDED Status: Discharge Protocol: Document 05/23/23 08:40 AB (Rec: 05/23/23 13:08 AB [id number]) PT-Bed Mobility Assessment Supine to Sit Supine to Sit Standby Assistance,1 Person Assistance PT-Transfer Assessment Sit to and From Stand Sit to and from Stand Contact Guard Assistance,1 Person Assistance,Use of Upper Extremities Equipment Transfer Assistive Device Gait Belt,Front Wheeled Walker Orthotic/Prosthetic Devices or Brace: No Transfers Transfer Destination Chair Transfer Technique ambulated Transfer Ability Level of Assist Contact Guard Assistance,1 Person Assistance,Use of Upper Extremities Comments Mobility Comments pt supine in bed and son in room. reviewed hip precautions with pt and pt unable to recall. educated pt again with hip precautions. pt completed supine to sit SBA but max cues for log roll. Son in room and was able to provide cues to pt. educated son on how to use safety belt and how to assist pt. son was able to put safety belt on pt and assisted pt with sit to stand CGA. ambulated pt in room using FWW CGA ~ 30 ft. pt sat on the chair. stair climbing training. educated pt and son on stair climbing techniques. pt completed sit to stand from the chair CGA and ambulated towards platform step and completed up/down step using FWW with son assisting and cueing pt CGA. pt repeated x 2 sets. pt ambulated in the hallway ~ 40 ft using FWW and back to her room with son assisting. pt sat on the chair . educated pt on sit<>stand techniques due to pt's heavy UE use to stand and unsteady intial standing. pt completed sit<>stand x 3 reps CGA and cues for techniques. positioned pt on the chair. call light and table placed within reach. son and pt without further concerns. Gait Assessment Gait Gait Assistance Required: Contact Guard Assist Distance (Feet) 40 Able to Maintain Weight Bearing Status Yes During Gait Assistive Devices Assistive Device Gait Belt,Front Wheeled Walker Orthotic/Prosthetic Devices or Brace: No Gait Deviations General Gait Pattern Antalgic,Decreased Feet Clearance Factors Limiting Gait Function Factors Limiting Gait Function Decreased Activity Tolerance, Decreased Strength,Limited Range of Motion,Pain,Poor Balance,Poor Safety Awareness Stair Climbing Assessment Evaluation Level of Assist On Stairs Contact Guard Assistance Devices Stair Climbing Assistive Devices Front Wheel Walker Technique/Endurance Stair Climbing Direction Ascend and Descend Stair Climbing Technique Step to Step Number of Steps Climbed 1 Stair Climbing Set # Repetitions (reps) 2 M5 PT-IP Objective Assessments Start: 05/22/23 15:52 Freq: NEEDED Status: Discharge Protocol: Document 05/22/23 14:00 AB (Rec: 05/22/23 16:07 AB [id number]) Orientation Orientation/Cognition Level of Alertness Alert Orientation Name,Situation Language Function Ability No Deficits Noted Safety Awareness Decreased Safety Awareness Memory Description Short Term Impaired Gross Range of Motion Lower Extremity ROM Assessment Within Functional Limits Strength Lower Extremity Strength Assessment Left Impaired Hip 3+/5 Knee 4-/5 Coordination Assessment Gross Coordination Gross Coordination WNL Sensation Assessment Sensation Gross Sensation WNL Muscle Tone Muscle Tone WNL Yes M6 PT-IP Treatment Start: 05/22/23 15:52 Freq: NEEDED Status: Discharge Protocol: Document 05/23/23 08:40 AB (Rec: 05/23/23 13:08 AB [id number]) Physical Therapy Treatment Education Education Provided Precautions,Weight Bearing Status,Safety M7 PT-IP Assessment and Plan Start: 05/22/23 15:52 Freq: NEEDED Status: Discharge Protocol: Document 05/23/23 08:40 AB (Rec: 05/23/23 13:08 AB [id number]) PT Summary Assessment and Plan Potential Rehabilitation Potential Fair Summary Impairments Pain,ROM,Strength,Balance, Coordination,Sensation,Tone, Cognition,Bed Mobility, Transfers,Gait,Activity Tolerance Progress Towards Goals Slow Progress - Other Assessment Summary caregiver training conducted and pt's son was able to assist pt safely. pt may go home when medically stable. Goals Bed Mobility Goal Independent Transfer Goal Independent,Front Wheeled Walker,Four Wheeled Walker Gait Goal Independent,Front Wheel Walker ,Four Wheel Walker Gait Distance 200 Other Goals up/down 2 platform steps using FWW SBA Days to Meet Goals 5 Frequency of Treatment Frequency Of Treatment Twice a Day Treatment Plan Physical Therapy Treatment Plan Bed Mobility Training,Transfer Training,Gait Training, Therapeutic Exercise,Balance Retraining,Post Op Education, Discharge Planning,Hot or Cold Pack,Neuromuscular Re-ed, Coordination Retraining,Manual Therapy Precautions Anterior Hip Precautions No Hip Extension,No Hip External Rotation Weight Bearing Status Weight Bearing Status Weight Bear as Tolerated Allowed Weight Bearing Amount (enter % LLE WBAT or #) (%) Recommendations To Nursing Amount of Assist Needed 1 Person Assist Discharge Recommendations PT Discharge Recommendations Home with Assistance, Outpatient PT Transportation Needs at Discharge Private Vehicle
[2023-05-23] MEDS: GABAPENTIN 600 MG TABLET PO (08:41)
[2023-05-23] MEDS: ASPIRIN EC 81 MG TABLET PO (08:41)
[2023-05-23] MEDS: VALSARTAN 80 MG TABLET 160 MG PO (08:41)
[2023-05-23] MEDS: PANTOPRAZOLE DR 40 MG TABLET PO (08:42)
--- NOTE | 2023-05-23 09:07 | P.DS_ITS ---
History of Present Illness History of Present Illness Date Patient Seen: 05/23/23 Time Patient Seen: 08:30 Chief complaint: OPB Narrative: Procedure: Cemented dual mobility left total hip arthroplasty through anterior approach Same procedure as scheduled: Yes Surgeon: Pj Boles Director Project Management: Sherly Reynoso Anesthesia Type: Epidural, Sedation and Local Operative Notes Estimated Blood Loss (mL): 400 This patient was seen preoperatively and evaluated for hip pain which was refractory to numerous nonoperative treatment modalities. Their hip pain correlated with radiographic changes demonstrating significant degeneration in the hip joint. The risks and benefits of continued nonoperative management versus operative management were discussed at length and all of the patient?s questions were answered. Additional educational materials providing further details beyond our discussion in clinic were provided via a publicly available patient education video which included the incidence of medical complications associated with total hip arthroplasty, reasons for revision following total hip arthroplasty, and patient satisfaction rates following total hip arthroplasty. With this understanding of the risks inherent to the procedure, the patient elected to move forward with operative management. Patient is found lying comfortably in her bed eating her breakfast. Her son is present with her. She did have some pain last night which was controlled with oral medications. Denies any fever chills nausea or vomiting. Denies any numbness or tingling down her left leg. Discharge Providers Provider Date of admission: 05/22/2023 Discharge Date: 05/23/23 Primary care physician: STACY Johnson Consults: 05/22/23 06:00 Consult to Anesthesiology Routine Comment: Consulting Provider: Anesthesiologist Reason for consultation: Regional block for post operative pain control 05/22/23 12:07 Consult to Discharge Planning Routine Comment: Consult to Physical Therapy Evaluate & Treat Comment: Physician Instructions: post op CHILANGO protocol Discharge provider: Tate Simpson PA-C Summary Hospital Course Discharge Diagnosis: Status post left hip arthroplasty Hospital Course: Multimodal pain control. Physical therapy. Status at Discharge Cognitive/behavioral status at discharge: oriented Functional status at discharge: uses cane/walker Time Spent with Patient Time spent: Less than 30 minutes Exam Vital Signs (past 8 hours): - 05/23/23 04:12 05/23/23 07:42 Temperature 97.1 F L 97.2 F L Pulse Rate 72 73 Respiratory Rate 16 20 Blood Pressure 118/65 142/77 H Pulse Oximetry 95 97 Oxygen Flow Rate 0 Fraction of Inspired Oxygen 21 SaO2/FiO2 Ratio 442 Oxygen Delivery Method Room Air Oxygen Flow Rate 0 Narrative Exam Narrative: Aquacel dressing appears to be well-maintained. No drainage noted. Tenderness along the border of the incisional site. No signs of any erythema edema or streaking. No pain to compression along the posterior thigh or calf. Able to dorsiflex and plantar flex against resistance at the left ankle. Sensation is grossly intact to the left leg. Resp Effort & Inspection: normal respiratory effort and able to speak in complete sentences Objective Labs 05/22/23 06:40 05/22/23 06:40 Labs: Laboratory Results - last 24 hr 05/22/23 06:40 WBC 6.2 RBC 3.94 L Hgb 12.7 Hct 36.3 MCV 92.1 MCH 32.3 MCHC 35.1 RDW 13.9 Plt Count 189 Neut % (Auto) 56.1 Lymph % (Auto) 33.2 [place]berson % (Auto) 8.4 Eos % (Auto) 1.6 L Baso % (Auto) 0.7 Neut # (Auto) 3500 Lymph # (Auto) 2000 [place] # (Auto) 500 Eos # (Auto) 100 Baso # (Auto) 0 PT 11.3 INR 1.0 Sodium 139 Potassium 3.9 Chloride 107 Carbon Dioxide 21 L BUN 12 Creatinine 0.75 Estimated GFR > 60 BUN/Creatinine Ratio 16.0 Glucose 93 Calcium 9.4 Total Bilirubin 0.9 AST 30 ALT 19 Alkaline Phosphatase 60 Total Protein 7.9 Albumin 4.2 Globulin 3.7 Albumin/Globulin Ratio 1.1 Blood Type B Negative Antibody Screen Negative Antibody Identification Cancelled [facility] Medical History Chronic diarrhea Fecal incontinence Internal hemorrhoids Neck pain with history of cervical spinal surgery Neuropathy Poor balance Recent urinary tract infection Spinal stenosis of lumbar region Spondylolisthesis, lumbar region Tortuous colon Surgical History History of colonoscopy History of lumbar spinal fusion (06/06/20) S/P epidural steroid injection Status post cervical spinal fusion (05/25/14) Social History household members: children Smoking Status: Former smoker alcohol intake: current Discharge Assessment & Plan Assessment and Plan Assessment: Status post left hip arthroplasty. Plan of Treatment: Anterior hip precautions. Weightbearing as tolerated with assistive device. Aspirin 81 twice per day for DVT prophylaxis Oxycodone 5mg every 4 hours as needed for strong pain. Acetametaphen 325mg, 2 tablets every 4 hours as needed for mild pain. Ibuprofen 600mg three times a day for inflammation. Silvana states that her current post op PT is scheduled 1 month out. Recommend contacting [facility] PT department to see if another facility can accommodate postoperative physical therapy needs. Try to start physical therapy within the next 5 days. Follow up at [facility] in 2 weeks Discharge Plan Discharge Plan Patient Disposition: Home Provider Discharge Comment: Detailed postoperative instructions available at [email or web address] DC pending PT approval Discharge orders & Medications Discharge Orders: Discharge (Order); Ordered 05/23/23 Ordered By: Tate Simpson Prescriptions: New aspirin 81 mg Tablet,Delayed Release (Dr/Ec) 81 mg PO BID Qty: 90 0RF acetaminophen 325 mg Tablet 650 mg PO Q6H PRN (Reason: Fever/Mild Pain (1-3)) Qty: 100 0RF ondansetron 4 mg Tablet,Disintegrating 4 mg PO Q6HR PRN (Reason: Nausea) Qty: 10 0RF oxycodone 5 mg Tablet 5 mg PO Q4H PRN (Reason: Pain, Severe (7-10)) Qty: 40 0RF ibuprofen 600 mg Tablet 600 mg PO TID Qty: 90 1RF Continued gabapentin 600 mg tablet 600 mg PO DAILY pantoprazole [Protonix] 40 mg tablet,delayed release (DR/EC) 40 mg PO DAILY bupropion HCl 300 mg tablet extended release 24 hr 300 mg PO DAILY Rx Instructions: Takes 450 mg q am bupropion HCl 150 mg tablet extended release 24 hr 150 mg PO DAILY Patient Comments: takes 450 mg qam cephalexin 250 mg capsule 250 mg PO DAILY Rx Instructions: Low-grade urinary tract infection- patient taking for 3 months, will finish end of May quetiapine [Seroquel] 25 mg tablet 25 mg PO DAILY Patient Comments: hasn't started yet valsartan 160 mg tablet 160 mg PO DAILY budesonide 3 mg Capsule,Delayed,Extend.Release 3 mg PO PRN PRN (Reason: Anxiety) loperamide 2 mg Capsule 4 mg PO QID PRN (Reason: Diarrhea) Patient Comments: Two tabs in the morning, noon, early evening and bedtime Follow up/Referrals: Cailin Tee ARNP [Primary Care Provider] - Pj Boles MD [Physician] - (follow up in 2 weeks for post-op appointment as scheduled ) Diet/Activity/Treatments Diet: Diet as Tolerated Activity: Weight bearing as tolerated, maintain Anterior hip precautions Cold/Heat Therapy: Ice to the hip for additional pain control. Skin/Wound/Dressing Care Report to your healthcare provider any signs of infection, such as:: chills, fever, night sweats, unusual drainage and unusual redness Dressing: Keep dressing clean, dry, intact until 2 weeks post-op Appointment. If dressing becomes dirty or saturated okay to remove and replace with clean dry gauze or return to our office for a placement dressing. No soaking the incision site and pulls or tubs. No topical ointments or creams to the incision site. Visit Report/Discharge Packet Instructions: DI for Hip Replacement Stand Alone Forms: Patient Portal/API Discharge Data Primary Care Provider: Cailin Tee Attending Provider: Pj Boles Quality VTE Deep Vein Thrombosis/Pulmonary Embolism Present on Admission: No
[2023-05-23 09:41] LABS: Hematocrit 30.6 % (36-46); Hemoglobin 10.8 g/dL (12.0-16.0)
--- NOTE | 2023-05-23 10:04 | PC.NURSE ---
Addendum entered by Silvana Pandey R.N. 05/23/23 10:54: Pt D/C instructions givenw/understanding Pt & son escorted by staff via W/C to waiting vehicle D/C in stable post op condition Original Note: Pt A/O working w/ PT Nicola dsg to left anterior hip CDI Received discharge orders. SL D/C intact. Will prepare for D/C home soon. Call light w/in reach, pt calls appropriately for needs.
--- NOTE | 2023-05-23 11:11 | CM.DANOTE ---
Patient is a 72 yo female who was admitted on 05/22/23 for LTHA. Pt has [facility] [place] and her PCP is Cailin Tee. EMR was reviewed. Per Ortho PA, pt tolerated procedure well, pain controlled, voided independently and stable for d/c home today after further PT. Per PT, pt and son participated in CG training and stairs this AM and recommending safe d/c home with son assist and outpt PT. SW met bedside briefly and explained role and pt and son confirm they live in [place] together and son plans to assist at d/c. Pt is typically independent with ADLs and has a FWW for home use and both are feeling agreeable to d/c home today and pt has outpt PT already set up. Pt has a hx of SNF at [facility] at a prior admission and her preference is home today via son POV and outpt PT. RN provided discharge instructions and pwk and SIMPLEX OPERATOR ready to assist pt down to son's POV. Plan: Patient to d/c home today via son's POV and outpt PT already set up and no further SW needs at this time. CECILIA Martínez Discharge Planning/Care Management CM Discharge Assessment Start: 05/23/23 11:10 Freq: Status: Active Protocol: Document 05/23/23 11:10 BF (Rec: 05/23/23 11:11 [id number]) Discharge Planning Assessment Assigned Research Manufacturing Operator CECILIA Simeon DPOA/Assigned Designee Name radha Malik Contact Information [phone] Advance Directives? Yes Advance Directives on File No History Provided By Patient,Family Member,Medical Record Has Patient been admitted in last 30 No days? Prior Living Arrangements House Household Members children Type of transporation used prior to Drives own vehicle admit Independent with ADL's Yes Is patient alert and oriented? Yes Caregiver for Another No Community Services used prior to Physical Therapy admission: DME Already Rented / Owned FWW / Walker Patient/Family Preference OP PT Therapy Barriers to Discharge No Comment need a [employer] insurance auth Discharge Plan Home Community Services Physical Therapy Transportation Arrangement son bedside and will transport home Whiteboard Updated in Patient Room with Yes name and ext. # of Research Manufacturing Operator Review Status In Process Please Provide Date Initial DC 05/23/23 Assessment Was Performed Next Review Type Continued Stay Review Pre-Anesthesia Assessment Start: 05/13/23 13:34 Freq: Status: Complete Protocol: Document 05/13/23 13:34 TC (Rec: 05/13/23 14:09 TC [id number]) Pre-Anesthesia Assessment Patient Information Reviewed Via Chart Review Assessment Completed With Patient Diagnostic Results BMP/CMP,CBC,EKG,Urinalysis Comment 03/11/23- Primary Care Provider Cailin Tee Medical Clearance Received Not Applicable Seen Specialist in Last 12 Months Yes Specialist Seen Emergency,Orthopedist, Urologist Primary Language Palestinian Preferred Language Palestinian Height 165.1 cm Weight 99.79 kg Body Mass Index (BMI) 36.6 Hearing Ability Normal Visual Impairment No Limitations Dentition Type Teeth, Broken Barriers to Learning None Other Aids No Hx Anesthesia Reactions Yes: Pt had delerium after back surgery and had to be readdmitted to hospital Additional comment Pt states the thought was to many pain medications Hx Family Anesthesia Reaction No Hx Malignant Hyperthermia No Hx Blood Transfusions No Hx Blood Transfusion Reaction No Anesthesia Review Requested No Supervisory Investigative Specialist No alcohol intake current alcohol intake frequency a few times a week Smoking Status Former smoker Tobacco type cigarettes how long ago did patient quit smoking 1997 Substance Use Type does not use Pain Present Pain Reported Comment left hip Musculoskeletal Symptoms Abnormal Gait,Difficulty Walking,Joint Pain,Joint Stiffness,Limited Range of Motion History of Falling (Recent or History of No ) Comment not since after back surgery Patient is completely paralyzed or No completely immobile Ambulatory Aid Crutches/cane/walker Mental Status Oriented to own ability Is patient on oxygen? No Does patient have BURNETT/SOB Yes: exertional Hx Sleep Apnea Yes CPAP/BIPAP use prescribed and used routinely Will Bring CPAP/BIPAP DOS Yes Comment patient advised to bring. She thought she was not going to stay overnight Currently Taking a Beta Rahel No Can You Climb a Flight of Stairs Without No SOB Hx Chest Pain No Hx SOB Yes: exertional Hx Syncope or Dizziness No Anti-Coagulant Therapy No Has a Shell Core And Molding Supervisor No Cardiac Testing Yes: EKG Hx Pacemaker/ICD No Pacemaker Rep Required? No Cardiac Clearance Received Not Applicable Diet Type At Home Regular Dysphagia No Gastrointestinal Symptoms Diarrhea Genitourinary Symptoms Frequency Chronic UTI Yes Bladder Pattern Incontinent Urinary Catheter Present No Hx Urinary Self Catheterization No Diabetes No Hx Drug Resistant Organism No Presence of External or Internal Medical Yes: Lumbar/cervical hardware, Devices cpap Have you had any close contact with No someone diagnosed with COVID-19? Are you experiencing any of these No symptoms symptoms? Evaluation/Screening for possible COVID- Yes 19 infection completed? Received a COVID vaccine? No Received all doses? No Marital Status Lives With children Current Living Arrangements House Number of Floors (Floors) One Floor Number of Stairs To Enter/Railing? 2 stairs with railing Support System Child/Children Does the Patient Have Assistance After Yes Surgery Patient Discharge Plan Description Return Home Comment Per patient she was advised not staying. This RN advised possible 1night st Feels Safe in Current Environment Yes Been Physically Hurt or Threatened By a No Person in Current Environment Do you have thoughts of harming yourself None or others? Are you currently considering suicide? No Do you have a plan to hurt yourself or No Plan others? Do You Have Any Spiritual Beliefs That No May Affect Your HC Choices? Do You Have Any Cultural Practices That No May Affect Your HC Choices? Who Can We Speak to About Patient's Care [phone] Health Care Proxy/Next of Kin King Cruz (son) Health Care Proxy Emergency Contact Name King Cruz (son) Emergency Contact Advance Directives? Yes Advance Directives on File No Power of Stonemason Apprentice No PAC Instructions Assistance for 24 hours post- op,Bring CPAP/BIPAP,Durable medical equipment,Medications to take/avoid,No ETOH/ petroleum product on skin DOS, NPO,Post-op transportation,Pre -surgical wash,Sturdy shoes/ comfortable clothes,Do not bring valuables and remove jewelry
== END 2023-05-23 10:58 | disposition home or self-care (01) ==
LOC: OR 06:02 → AC 06:02
PROVIDERS: PCP Registered Nurse; Referring Provider Orthopaedic Surgery Adult Reconstructive Orthopaedic Surgery; Visit Provider Orthopaedic Surgery Adult Reconstructive Orthopaedic Surgery
PROC: (CPT 27130; principal; 2023-05-22 07:45)
DX: M16.12 Unilateral primary osteoarthritis, left hip (principal); M85.852 Other specified disorders of bone density and structure, left thigh
CPT/HCPCS: 27130; 36415; 73502; 76000; 80053; 85014; 85018; 85025; 85610; 86850; 86900; 86901; 94762; 97161; 97530; C1776; J0171; J0690; J1100; J2704; J3010

== ENCOUNTER → 2024-01-26 14:15 | Outpatient (CLI) | payer OTHER, SELFPAY ==
[2023-05-22 12:18] VITALS: BMI 35.5
--- NOTE | 2024-01-26 14:16 | DI.CT.S_ITS ---
PROCEDURE: CT IVP A/P W/WO INDICATIONS: DYSURIA,LEFT RENAL MASS TECHNIQUE: Optional 5 mm thick noncontrast images acquired from the diaphragm to the symphysis pubis. After the administration of intravenous contrast, 5 mm thick images acquired from the diaphragm to the symphysis pubis after a 10-minute delay. 2 mm thick coronal and sagittal reformats were then performed of the kidneys and ureters. For radiation dose reduction, the following was used: automated exposure control, adjustment of mA and/or kV according to patient size. COMPARISON: Outside Film, CT, CT ABDOMEN PELVIS WITH CONTRAST, 10/28/2022, 15:44. Outside Film, CT, CT ABDOMEN WITH/WITHOUT CONTRAST, 12/24/2022, 13:36. FINDINGS: Image quality: Diagnostic Lower chest: Basal scarring and atelectasis. Suspected right fat containing Bochdalek's hernia. Liver: Hepatic steatosis. Gallbladder and biliary system: Unremarkable, nondilated Pancreas: No ductal dilation Spleen: Borderline enlarged at 13 cm Adrenals: No discrete nodules Kidneys: Possible nonobstructing stone in the left anterior calyx. No discrete solid renal mass. Focal scarring is seen in the left mid posterior kidney at site of prior abnormality. No suspicious ureter filling defects. No hydronephrosis. Vessels and lymph nodes: The main portal vein is patent. Atherosclerotic calcifications. No abdominal aortic aneurysm. Bowel and peritoneum: No small bowel obstruction or pathologic ascites. There are colonic diverticula. Body wall: small fat containing umbilical hernia. Pelvis: Possible uterine calcified fibroids. Bladder appears unremarkable. Bones: Lumbosacral fusion hardware left hip arthroplasty. IMPRESSION: Scarring is seen at the region of prior abnormality in the left mid posterior kidney. No solid renal mass is identified. Suspect small punctate nonobstructing stone in the left anterior kidney. The lower tracts could be better evaluated cystoscopy if clinically indicated. Other findings above. Dictated by: Dave Teixeira M.D. on 01/26/2024 at 17:45 Approved by: Dave Teixeira M.D. on 01/26/2024 at 17:52
[2024-01-26 14:46] LABS: Estimated Glomerular Filt Rate > 60 mL/min (>60)
== END ==
LOC: CT 14:16
PROVIDERS: Radiology Diagnostic Radiology; PCP Registered Nurse; Referring Provider Urology; Visit Provider Urology
DX: N28.89 Other specified disorders of kidney and ureter (principal); R30.0 Dysuria; K76.0 Fatty (change of) liver, not elsewhere classified; K57.90 Diverticulosis of intestine, part unspecified, without perforation or abscess without bleeding; Z98.1 Arthrodesis status; Z96.642 Presence of left artificial hip joint
CPT/HCPCS: 36415; 74178; 82565; Q9967

== ENCOUNTER 2024-07-31 08:26 | Emergency (ER) | payer OTHER, SELFPAY ==
[2023-05-22 12:18] VITALS: BMI 35.5
[2024-07-31] VITALS (9 sets, daily range): BP systolic 159–188; BP diastolic 84–89; PULSE 74–81; RESP 16–24; TEMP 36.7; O2SAT 91–97; BMI 34.9
--- NOTE | 2024-07-31 09:11 | ED.LOWEXIN ---
HPI - Extremity Injury (Lower) General Chief Complaint: Extremity Injury, Lower Stated Complaint: [facility] needs pain meds Time Seen by Provider: 07/31/24 09:11 History of Present Illness HPI Narrative: Patient is a 73-year-old female without significant past medical history presenting to day with right wrist pain. She was seen evaluated yesterday at [facility] for right wrist fracture. She tripped over her dog landing on her right arm. Héctor wrap was on done in triage feeling a little bit better. Son is at bedside reports that they have a pain prescription waiting for them at the pharmacy they were unable to pick it up last night. She did take an oxycodone left over from her hip surgery. She took 2 of those 100 11:00 p.m. and 1 at 4:00 a.m. Able to move fingers no numbness or tingling. Sudden now states he was not convinced that she tripped over a dog. Stating that she sometimes falls due to neuropathy in her back she has had frequent back surgeries he was worried her back maybe making things worse. She was also had a UTI making her confused so he was worried that she has a UTI. Related Data Home Medications Medication Instructions Recorded Confirmed bupropion HCl 150 mg 24 hr tablet, 150 mg PO DAILY 02/22/20 05/22/23 extended release bupropion HCl 300 mg 24 hr tablet, 300 mg PO DAILY 02/22/20 05/22/23 extended release gabapentin 600 mg tablet 600 mg PO DAILY 02/22/20 05/22/23 pantoprazole 40 mg tablet,delayed 40 mg PO DAILY 02/22/20 05/22/23 release (Protonix) budesonide 3 mg 3 mg PO PRN PRN Anxiety 06/05/20 05/22/23 capsule,delayed,extended release loperamide 2 mg capsule 4 mg PO QID PRN Diarrhea 06/05/20 05/13/23 quetiapine 25 mg tablet (Seroquel) 25 mg PO DAILY 06/05/20 05/22/23 valsartan 160 mg tablet 160 mg PO DAILY 06/05/20 05/22/23 cephalexin 250 mg capsule 250 mg PO DAILY 05/13/23 05/22/23 Previous Rx's Medication Instructions Recorded acetaminophen 325 mg tablet 650 mg (2 x 325 mg) PO Q6H PRN 05/23/23 Fever/Mild Pain (1-3) #100 tabs aspirin 81 mg tablet,delayed 81 mg PO BID #90 tabs 05/23/23 release ibuprofen 600 mg tablet 600 mg PO TID #90 tabs 05/23/23 ondansetron 4 mg disintegrating 4 mg PO Q6HR PRN Nausea #10 tabs 05/23/23 tablet oxycodone 5 mg tablet 5 mg PO Q4H PRN Pain, Severe 05/23/23 (7-10) #40 tabs ondansetron 4 mg disintegrating 4 mg PO Q8H PRN nausea and 07/31/24 tablet vomiting #10 tabs oxycodone-acetaminophen 5 mg-325 1 tab PO Q6H PRN pain #10 tabs 07/31/24 mg tablet (Percocet) Allergies Allergy/AdvReac Type Severity Reaction Status Date / Time adhesive tape AdvReac Mild Red, itchy Verified 05/22/23 06:48 Patient History Medical History Chronic diarrhea Fecal incontinence Internal hemorrhoids Neck pain with history of cervical spinal surgery Neuropathy Poor balance Recent urinary tract infection Spinal stenosis of lumbar region Spondylolisthesis, lumbar region Tortuous colon Surgical History History of colonoscopy History of lumbar spinal fusion (06/06/20) S/P epidural steroid injection Status post cervical spinal fusion (05/25/14) Social History household members: children alcohol intake: current alcohol intake frequency: a few times a week Exam Initial Vital Signs Initial Vital Signs: Vital Signs Temperature 98.0 F 07/31/24 08:43 Pulse Rate 80 07/31/24 08:43 Respiratory Rate 16 07/31/24 08:43 Blood Pressure 159/84 H 07/31/24 08:43 Pulse Oximetry 97 07/31/24 08:43 Oxygen Delivery Method Room Air 07/31/24 08:43 GENERAL: Well-appearing, well-nourished and in no acute distress. CARDIOVASCULAR: peripheral pulses in tact, cap refill <2 sec RESPIRATORY: No respiratory distress, speaks in full sentences without difficulty EXTREMITIES: Normal range of motion, no clubbing or edema. Neurovascularly intact Right upper extremity able to move fingers NEUROLOGICAL: Cranial nerves II through XII grossly intact. Normal gait and speech. SKIN: Warm, dry, no petechiae, no rashes or lesions. Course Orders Ordered: ED Orders 07/31/24 09:23 XR wrist RT 2V Stat 07/31/24 09:35 Consult to CLIENT APPLICATION SUPPORT ENGINEER - Electrical Engineering Director Stat 07/31/24 10:58 XR lumbar spine 2-3V Stat 07/31/24 11:15 CBC Auto Diff [Complete Blood Count AUTO DIFF] Stat CMP [Comprehensive Metabolic Panel] Stat UA Complete [Urinalysis and Microscopic] Stat 07/31/24 13:24 Consult to Home Health Stat Discontinued Medications Hydrocodone Bitart/Acetaminophen (Hydrocodone/Acet 5/325 Tablet) 1 tab PO NOW ONE Stop: 07/31/24 09:24 Last Admin: 07/31/24 09:27 Dose: 1 tab Documented By: Ondansetron HCl (Ondansetron 4 Mg Odt) 4 mg SL NOW ONE Stop: 07/31/24 10:06 Last Admin: 07/31/24 10:07 Dose: 4 mg Documented By: SPF Vital Signs Vital signs: Vital Signs - 8 hr 07/31/24 08:43 07/31/24 11:14 07/31/24 11:15 Temperature 98.0 F Pulse Rate 80 78 Respiratory Rate 16 Blood Pressure 159/84 H 188/89 H Pulse Oximetry 97 93 Oxygen Delivery Method Room Air 07/31/24 11:15 07/31/24 11:30 07/31/24 12:00 Temperature Pulse Rate 78 81 77 Respiratory Rate Blood Pressure Pulse Oximetry 91 Oxygen Delivery Method 07/31/24 12:30 07/31/24 12:44 07/31/24 13:00 Temperature Pulse Rate 78 74 76 Respiratory Rate 24 Blood Pressure 163/87 H 163/87 H Pulse Oximetry 92 93 94 Oxygen Delivery Method Room Air 07/31/24 13:01 Temperature Pulse Rate 76 Respiratory Rate Blood Pressure Pulse Oximetry 92 Oxygen Delivery Method MDM - Extremity Injury (Lower) Lab Data 07/31/24 11:15 07/31/24 11:15 Labs: Lab Results 07/31/24 Range/Units 11:15 WBC 11.7 H (4.5-11.0) X10^3/uL RBC 4.27 (4.0-5.2) X10^6/uL Hgb 14.2 (12.0-16.0) g/dL Hct 40.1 (36-46) % MCV 93.9 (80-100) fL MCH 33.4 (26-34) PG MCHC 35.5 (30-36) % RDW 13.2 (11.6-14.8) % Plt Count 233 (150-400) X10^3/uL Neut % (Auto) 82.1 H (50-75) % Lymph % (Auto) 10.5 L (25-40) % Bailey % (Auto) 6.7 (3-14) % Eos % (Auto) 0.3 L (2-4) % Baso % (Auto) 0.4 (0-2) % Neut # (Auto) 9600 H (8876-9142) /uL Lymph # (Auto) 1200 (3951-6457) /uL Bailey # (Auto) 800 (0-900) /uL Eos # (Auto) 0 (0-450) /uL Baso # (Auto) 100 (0-100) /uL Sodium 133 L (137-145) mmol/L Potassium 4.5 (3.4-5.1) mmol/L Chloride 96 L (98-107) mmol/L Carbon Dioxide 27 (22-32) mmol/L BUN 14 (7-17) mg/dL Creatinine 0.72 (0.52-1.04) mg/dL Estimated GFR > 60 (>60) mL/min BUN/Creatinine Ratio 19.4 (6-22) Glucose 117 H (70-99) mg/dL Calcium 9.6 (8.4-10.2) mg/dL Total Bilirubin 2.6 H (0.2-1.3) mg/dL AST 58 H (14-36) IU/L ALT 29 (<35) IU/L Alkaline Phosphatase 84 (38-126) U/L Total Protein 8.7 H (6.3-8.2) g/dL Albumin 4.8 (3.5-5.0) g/dL Globulin 3.9 (1.7-4.1) g/dL Albumin/Globulin Ratio 1.2 (1.0-2.8) Urine Color Yellow Urine Appearance Clear Urine pH 7.0 (4.5-8.0) Ur Specific [place] 1.020 (1.000-1.035) Urine Protein Negative (Negative) Urine Glucose (UA) Negative (Negative) g/dL Urine Ketones Negative (NEGATIVE) Urine Occult Blood Negative (Negative) Urine Nitrate Negative (Negative) Urine Bilirubin Negative (NEGATIVE) Urine Urobilinogen 0.2 (0.2) E.U./dL Ur Leukocyte Esterase Negative (NEGATIVE) Urine RBC None seen (0-5/HPF) Urine WBC 0-1/hpf (0-5/HPF) Ur Squamous Epith Cells 0-1 /hpf (0-5/HPF) Urine Bacteria None seen (None) Ur Culture Indicated? Cult not indicated Vol Urine Centrifuged 10ml (spun) Imaging Data Extremity x-ray #1: Radiologist's Impression: PROCEDURE: XR WRIST RT 2V INDICATIONS: fracutre TECHNIQUE: 3 views of the wrist were acquired. COMPARISON: None. FINDINGS: Bones: Splinting of a comminuted distal intra-articular radial and ulnar styloid fractures with persistent impaction Soft tissues: No suspicious soft tissue calcifications. IMPRESSION: Interval splinting of known fractures. Dictated by: Harish Baugh M.D. on 07/31/2024 at 8:52 Extremity x-ray #2: Radiologist's Impression: PROCEDURE: XR LUMBAR SPINE 2-3V INDICATIONS: fall prior surgery TECHNIQUE: 3 views of the lumbar spine were acquired. COMPARISON: [facility], , XR LUMBAR SPINE 2-3V, 07/01/2021, 15:22. FINDINGS: Bones: Posterior fixation of L4 through S1 with intervertebral disc spacers. No evidence of hardware complication. There are 5 gud-otp-drbldde vertebrae are present. There is normal bony alignment. No vertebral body compression fractures. No suspicious bony lesions. Partially visualized left hip prosthesis. Soft tissues: Overlying bowel gas pattern is normal. No suspicious soft tissue calcifications. Vascular calcifications are present. IMPRESSION: No acute bony abnormality. Dictated by: Harish Baugh M.D. on 07/31/2024 at 11:03 MDM Narrative Medical decision making narrative: Patient is 73-year-old female who has a right wrist fracture. X-ray today shows stable fracture. She was no evidence of compartment syndrome able to move fingers cap refill less than 2 seconds. Son concerned that something else might be going on requesting further workup Blood work today is overall reassuring she was noted to have a bilirubin of 2.6. Exam she was absolutely no right upper quadrant pain. She was nauseous but immediately after hydrocodone she had no vomiting. She has not had any ongoing nausea vomiting abdominal pain push she issues. AST ALT liver enzymes and alk-phos within normal limits. Very low suspicion for cholelithiasis or acute cholecystitis. Urinalysis is negative for UTI Imaging has been reviewed lumbar x-ray does not show any abnormality Wrist x-ray shows stable fracture At this time no indication for admission. Supportive care only outpatient follow up with ortho. Patient was prescribed hydrocodone by other ED however it did make her nauseous here. She did better with oxycodone so I will send her a different prescription. Discharge Plan Departure Patient Disposition: Home Clinical Impression: Fracture of right wrist Instructions: DI for Wrist Fracture Activity Restrictions/Additional Instructions: *You have been diagnosed with right wrist fracture *What to do: At this time keep splint on. Elevate and ice as needed. *Continue to take medications as directed Percocet 1 tablet every 6 hours if needed for severe pain Zofran 4 mg every 8 hours or prior to pain medication or nausea or vomiting *Follow up with your primary care provider in 2-3 days or call [phone] Follow up with either [facility] or [facility] *Return to ER if you should have increasing pain numbness tingling weakness or any new, worsening or concerning symptoms CONTROLLED SUBSTANCE DISCHARGE (Narcotoic/benzodiazepine/Flexeril/Phenergan) 1. You have been prescribed narcotic medications, it does have acetaminophen/Tylenol/paracetamol in it, DO NOT TAKE MORE THAN 4,00mg in 24 hours of Tylenol. TRAMADOL DOES NOT CONTAIN TYLENOL 2. Please understand that we cannot provide further refills of narcotics, benzodiazepines or controlled substances through the ED and her pain management will need to be through your provider. 3. While on these medications you cannot drive or operate heavy machinery. 4. You cannot sign legal documents or perform any duties such as this. 5. As long as you're taking opiate pain medications he should also be taking a stool softener such as Colace, Dulcolax, MiraLAX or prune juice, to help avoid constipation. Prescriptions: New oxycodone-acetaminophen [Percocet] 5-325 mg tablet 1 tab PO Q6H PRN (Reason: pain) Qty: 10 0RF ondansetron 4 mg tablet,disintegrating 4 mg PO Q8H PRN (Reason: nausea and vomiting) Qty: 10 0RF No Action gabapentin 600 mg tablet 600 mg PO DAILY pantoprazole [Protonix] 40 mg tablet,delayed release (DR/EC) 40 mg PO DAILY bupropion HCl 300 mg tablet extended release 24 hr 300 mg PO DAILY Rx Instructions: Takes 450 mg q am bupropion HCl 150 mg tablet extended release 24 hr 150 mg PO DAILY Patient Comments: takes 450 mg qam cephalexin 250 mg capsule 250 mg PO DAILY Rx Instructions: Low-grade urinary tract infection- patient taking for 3 months, will finish end of May aspirin 81 mg Tablet,Delayed Release (Dr/Ec) 81 mg PO BID Qty: 90 0RF acetaminophen 325 mg Tablet 650 mg PO Q6H PRN (Reason: Fever/Mild Pain (1-3)) Qty: 100 0RF ondansetron 4 mg Tablet,Disintegrating 4 mg PO Q6HR PRN (Reason: Nausea) Qty: 10 0RF oxycodone 5 mg Tablet 5 mg PO Q4H PRN (Reason: Pain, Severe (7-10)) Qty: 40 0RF ibuprofen 600 mg Tablet 600 mg PO TID Qty: 90 1RF quetiapine [Seroquel] 25 mg tablet 25 mg PO DAILY Patient Comments: hasn't started yet valsartan 160 mg tablet 160 mg PO DAILY budesonide 3 mg Capsule,Delayed,Extend.Release 3 mg PO PRN PRN (Reason: Anxiety) loperamide 2 mg Capsule 4 mg PO QID PRN (Reason: Diarrhea) Patient Comments: Two tabs in the morning, noon, early evening and bedtime Referrals: [facility] Group] [facility]] Cailin Tee ARNP [Primary Care Provider] - Stand Alone Forms: Patient Portal/API/Survey
--- NOTE | 2024-07-31 09:23 | DI.RAD.S_ITS ---
PROCEDURE: XR WRIST RT 2V INDICATIONS: fracutre TECHNIQUE: 3 views of the wrist were acquired. COMPARISON: None. FINDINGS: Bones: Splinting of a comminuted distal intra-articular radial and ulnar styloid fractures with persistent impaction Soft tissues: No suspicious soft tissue calcifications. IMPRESSION: Interval splinting of known fractures. Dictated by: Harish Baugh M.D. on 07/31/2024 at 8:52 Approved by: Harish Baugh M.D. on 07/31/2024 at 8:53
[2024-07-31] MEDS: HYDROCODONE/ACET 5/325 TABLET 1 TAB PO (09:27)
[2024-07-31] MEDS: ONDANSETRON 4 MG ODT SL (10:07)
--- NOTE | 2024-07-31 10:14 | PC.NURSE ---
Pt son at bedside states he is concerned about taking pt home and says pt runs to the bathroom and falls, is a high fall risk, has neuropathy, right arm injured. I am not comfortable taking her home at this time. I explained to son that pt may not meet criteria to be admitted to the hospital. Educated pt and son about secondary social studies teacher and being able to help with resources.
--- NOTE | 2024-07-31 10:58 | DI.RAD.S_ITS ---
PROCEDURE: XR LUMBAR SPINE 2-3V INDICATIONS: fall prior surgery TECHNIQUE: 3 views of the lumbar spine were acquired. COMPARISON: [facility], CR, XR LUMBAR SPINE 2-3V, 07/01/2021, 15:22. FINDINGS: Bones: Posterior fixation of L4 through S1 with intervertebral disc spacers. No evidence of hardware complication. There are 5 pho-bvh-welpaob vertebrae are present. There is normal bony alignment. No vertebral body compression fractures. No suspicious bony lesions. Partially visualized left hip prosthesis. Soft tissues: Overlying bowel gas pattern is normal. No suspicious soft tissue calcifications. Vascular calcifications are present. IMPRESSION: No acute bony abnormality. Dictated by: Harish Baugh M.D. on 07/31/2024 at 11:03 Approved by: Harish Baugh M.D. on 07/31/2024 at 11:05
--- NOTE | 2024-07-31 11:08 | CM.SWNOTE ---
Patient is a 73 yo female who was admitted to [place] ED on 07/31/24 for wrist injury and pain. Pt has [facility] for insurance and her PCP is Cailin Tee on [facility]. EMR was reviewed. Per ED MD, pt with a recent fall and wrist injury and seen at [facility] and son brought pt in for pain and fall risk. No medical reason for admission at this time and COMFORT ADVISOR Consult placed as son has concerns and needs resources for home support. SW met bedside with pt who is drowsy but able to answer questions and adult son King and explained role and King appears anxious and concerned and discussed pt's list of medical hx of prior back surgeries, neuropathy in her feet, fecal urgency, unsteady gait and states he feels pt needs to be admitted until she is less of a fall risk and has more of a medical workup. SW explained that pt would need a medical reason for treatment that required admission to be admitted and purpose of the ED and admission to the hospital is to treat the Acute Medical need for stabilization and then discharge to lower level of care. Discussed difference between acute medical need vs long chain dyeing machine operator care/long term need. Provided resources for Private Pay CGs with an agency or private caregivers, [facility] for [facility] and see if pt qualifies for T[employer] Services for Older Adults or Medicaid JENNIFER or Medicaid LONG-TERM for likely future need. Strongly encouraged son to work on long chain dyeing machine operator care plan as most of pt's chronic conditions will likely continue to make her a high fall risk. Son acknowledged understanding and appreciative but still quite anxious. Son confirms that pt and son live together on [facility] at home and son works methods time analyst. SW inquired about other family and he states pt's sister comes over to stay and visit and assist but is not very reliable with safety concerns of pt's fall risk. Son has a brother in [place] but he works methods time analyst of 6 days a week. ED MD arrived bedside and agreeable to imaging pt's back and getting blood draw and urine sample to r/o further medical conditions and son very appreciative and ED MD clear that if pt's results normal and no medical reason to admit then pt would be discharged home and son acknowledged understanding. Pt with hx of [facility] after prior back surgery and SW explained that [facility] likely would not auth SNF rehab for a wrist injury and more long term care needs. Plan: COMFORT ADVISOR to follow after further workup to confirm no medical dx for admission to the hospital and son to work on LTC plan after discharge. Possible HH referral could be beneficial with COMFORT ADVISOR included for HH. CECILIA Martínez
[2024-07-31 11:27] LABS: Appearance Urine UA CLEAR; Bilirubin Urine UA NEGATIVE (NEGATIVE); Color Urine UA YELLOW; Glucose Urine UA NEGATIVE (Negative); Ketones Urine UA NEGATIVE (NEGATIVE); Leukocyte Esterase Urine UA NEGATIVE (NEGATIVE); Nitrite Urine UA NEGATIVE (Negative); Occult Blood Urine UA NEGATIVE (Negative); Protein Urine UA NEGATIVE (Negative); Urobilinogen Urine UA 0.2 E.U./dL (0.2)
[2024-07-31 11:58] LABS: Add Manual Diff / Slide Review NO; Basophils Absolute Auto 100 /uL (0-100); Basophils Percent Auto 0.4 % (0-2); Eosinophils Absolute Auto 0 /uL (0-450); Eosinophils Percent Auto 0.3 % (2-4); Hematocrit 40.1 % (36-46); Hemoglobin 14.2 g/dL (12.0-16.0); Lymphocytes Absolute Auto 1200 /uL (1100-4500); Lymphocytes Percent Auto 10.5 % (25-40); Mean Corpuscular HGB Conc 35.5 % (30-36); Mean Corpuscular Hemoglobin 33.4 PG (26-34); Mean Corpuscular Volume 93.9 fL (80-100); Monocytes Absolute Auto 800 /uL (0-900); Monocytes Percent Auto 6.7 % (3-14); Neutrophils Absolute Auto 9600 /uL (1500-7000); Neutrophils Percent Auto 82.1 % (50-75); Platelet Count 233 X10^3/uL (150-400); Red Blood Cell Count 4.27 X10^6/uL (4.0-5.2); Red Cell Distribution Width 13.2 % (11.6-14.8); White Blood Cell Count 11.7 X10^3/uL (4.5-11.0)
[2024-07-31 12:04] LABS: Bacteria Urine None Seen; Culture Indicated Urine Cult Not Indicated; RBC Urine None Seen (0-5/HPF); Squamous Epithelial Cell Urine 0-1 /HPF (0-5/HPF); Urine Volume 10mL (spun); WBC Urine 0-1/HPF (0-5/HPF)
[2024-07-31 12:08] LABS: Alanine Aminotransferase 29 IU/L (<35); Albumin 4.8 g/dL (3.5-5.0); Albumin Globulin Ratio 1.2 (1.0-2.8); Alkaline Phosphatase 84 U/L (38-126); Aspartate Aminotransferase 58 IU/L (14-36); BUN Creatinine Ratio 19.4 (6-22); Bilirubin Total 2.6 mg/dL (0.2-1.3); Blood Urea Nitrogen 14 mg/dL (7-17); Calcium 9.6 mg/dL (8.4-10.2); Carbon Dioxide 27 mmol/L (22-32); Chloride 96 mmol/L (98-107); Estimated Glomerular Filt Rate > 60 mL/min (>60); Globulin 3.9 g/dL (1.7-4.1); Glucose 117 mg/dL (70-99); Potassium 4.5 mmol/L (3.4-5.1); Sodium 133 mmol/L (137-145); Total Protein 8.7 g/dL (6.3-8.2)
[2024-07-31 12:26] LABS: HEMOLYSIS 83 (0-50)
--- NOTE | 2024-08-01 11:25 | CM.SWNOTE ---
*Late Entry* ED DONOR SERVICES MANAGER Note: Reviewed chart, discussed pt with DONOR SERVICES MANAGER and ED staff. It is reported that after more medical work up, pt is medically cleared to discharge home with son and follow up with PCP. ED DONOR SERVICES MANAGER entered room, introduced self and role. Pt was found in bed, alert and oriented. Pt's son, King, also in the room. ED DONOR SERVICES MANAGER discussed plans for discharge home, discussed home health; pt and son agreeable with home health referral. Pt states she has experience with [facility] (care for her mother) and would like to move forward with a referral to [facility]. ED DONOR SERVICES MANAGER provided contact and informational pamphlet for [facility] to patient son. ED DONOR SERVICES MANAGER answered all questions to best of ability, no other needs expressed by patient or son. ED DONOR SERVICES MANAGER sent referral to [facility] Intake via secure email. 08/01/24: It is reported [facility] can accept patient. ED DONOR SERVICES MANAGER sent signed discharge summary to [facility] intake team. LUIS Chapman
== END 2024-07-31 13:19 | disposition home or self-care (01) ==
PROVIDERS: Emergency Provider Emergency Medicine; PCP Registered Nurse
DX: S52.571A Other intraarticular fracture of lower end of right radius, initial encounter for closed fracture (principal); S52.611A Displaced fracture of right ulna styloid process, initial encounter for closed fracture; G62.9 Polyneuropathy, unspecified; R41.0 Disorientation, unspecified; W01.0XXA Fall on same level from slipping, tripping and stumbling without subsequent striking against object, initial encounter
CPT/HCPCS: 72100; 73100; 80053; 81001; 85025; 99283; 99284

== ENCOUNTER 2024-08-03 12:13 | Day surgery (SDC) | payer OTHER, SELFPAY ==
[2023-05-22 12:18] VITALS: BMI 35.5
[2024-08-02 10:08] VITALS: BMI 37.1
[2024-08-03] VITALS (9 sets, daily range): BP systolic 126–176; BP diastolic 60–95; PULSE 78–94; RESP 14–18; TEMP 36.1–36.6; O2SAT 89–99; BMI 37.1
[2024-08-03] MEDS: ACETAMINOPHEN 325 MG TABLET 975 MG PO (13:04)
[2024-08-03] MEDS: LACTATED RINGERS 1,000 ML 42 ML IV (13:04)
--- NOTE | 2024-08-03 14:30 | PM.PREOP ---
Pre-operative Note Interval Note History & Physical reviewed/Exam performed by Physician: Yes Changes to H&P: No
[2024-08-03] MEDS: CEFAZOLIN 2 GM/100 ML PREMIX 100 ML IV (14:47)
--- NOTE | 2024-08-03 15:06 | SUR.OPER ---
Supine on padded OR bed, head on pillow, arms secured on padded arm boards at <90 degrees abduction, right arm prepped into field with large armboard, legs uncrossed, pillow under knees, safety belt at thigh, tape over blanket over lower legs.
[2024-08-03] MEDS: BUPIVACAINE 0.25% W/ EPI 30 ML VIAL 60 ML INJ (15:11)
--- NOTE | 2024-08-03 16:25 | P.OP_ITS ---
Operative Date/Time/Diagnoses Date of procedure: 08/03/24 Time of procedure: 16:25 Pre-op diagnosis: Intra-articular right distal radius fracture Post-op diagnosis: same Procedure & Clinicians Procedure: Open reduction internal fixation intra-articular distal radius fracture with separate lunate facet prosthesis and separate ulnar styloid facet pieces and separate metaphyseal split. The multipart intra-articular distal radius fracture CPT code 08813 Same procedure as scheduled: Yes Indications: The patient is a 73-year-old left-hand dominant female that had a fall and sustained a displaced comminuted intra-articular right distal radius fracture. She was indicated for open reduction internal fixation to restore length alignment and articular congruity of her intra-articular fracture. She was at risk for malunion nonunion and posttraumatic arthritis due to her intra- articular fracture. The risks and benefits of the procedure have been discussed with the patient and given the opportunity to ask questions. The risks of surgery include but are not limited to infection, malunion, nonunion, persistence of pain, damage to nerves and blood vessels, posttraumatic arthritis, DVT, PE, coardiopulmonary complications and . The patient expressed a thorough understanding of the risks and benefits of surgery and has elected to proceed. Consent was signed Surgeon: Yaa Anderson Click Yes if Unassisted: Yes Anesthesia Type: General and Local Operative Notes Findings: Displaced intra-articular distal radius fractures with separate lunate facet and radial styloid fragments and separate metaphyseal split. The lunate fragment was reduced and pinned to the metaphysis with a K-wire. Then the radial styloid fragment was released releasing the brachioradialis this was reduced and pinned to the lunate fragment using a separate K-wire. Plate was then fit to the fracture and applied. This was a standard 3 hole Arthrex right distal radius plate. Closure Type: primary Specimen(s): none sent Prosthetic devices, grafts, tissues, transplants, or devices: Arthrex 3 hole right volar standard distal radius plate. Nonlocking and locking screws were placed distally and nonlocking and locking shaft screws were placed proximally. Estimated Blood Loss (mL): 20 Blood products transfused: none Tourniquet time (min): 38 Procedure in detail: Patient was seen in the preoperative area the site of surgery was marked informed consent confirmed this was the right wrist. The patient was then brought to the operating room placed on the operative table in the supine p osition. Hand table was placed on the operative side. General anesthesia was administered. SCDs were 1 the legs and all bony prominence were padded. A well-padded brachial tourniquet was placed. A formal time-out procedure was called confirming the patient's side and site of surgery administration of preoperative antibiotics and presence of consent. All agreed. The operative right upper extremity was prepped and draped in the standard sterile fashion. An Esmarch was used for exsanguination and the brachial tourniquet was raised to 250 mm of mercury. Standard FCR approach to the wrist was drawn in the incision made. Due to the distal intra-articular involvement of the fracture this was then extended in a zigzag fashion crossing the wrist crease at 90 degree angles for the extended FCR approach. The FCR was exposed. The sheath was opened and the tendon was retracted ulnar protect the palmar cutaneous branch of the median nerve. Floor of the FCR was opened to expose the deep muscles. The FPL was retracted ulnar and the pronator quadratus was released from the radial border and reflected ulnar to expose the distal radius and distal fracture. There was a very large lunate fragment that was volarly located and impacted and a separate displaced radial styloid fragment. The separate frag sure fragments were separate from the metaphyseal fragment. The fractures were disimpacted and cleaned. The brachioradialis was released from the radial styloid with care to protect the contents of the 1st dorsal compartment. The radial artery was visualized in the wound along the radial border and protected throughout the case. First step was to reduce the lunate intra-articular fragment this was volarly dislocated. A reduction maneuver with traction and some pressure over the volarly displaced fragment dorsally levered the lunate fragment back into alignment with the metaphyseal fragment. This was then pinned with a K-wire and checked under fluoroscopy. Once the lunate fragment was secured in place attention was turned to the radial styloid fragment. This was separately reduced and clamped with a pointed reduction clamp and then pinned from the radial styloid across into the lunate facet fragment. The reduction was checked under intraoperative fluoroscopy AP oblique and lateral imaging and was near anatomic. Next an Arthrex standard 3 hole volar plate was placed within the fracture and positioned centered on the distal radius and adjusted under fluoroscopic guidance to the appropriate alignment distally. This was checked with a wire through the plate. Once this was satisfactory, nonlocking 3.5 screws placed in the oblong hole and secured. Distal screws were then placed 1st with nonlocking screws followed by locking screws. These were placed carefully not to penetrate the dorsal cortex. Once this was completed and checked for prominence the final shaft locking screws were placed. Again with care to avoid prominence. Final intraoperative images were obtained reviewed demonstrating no evidence of hardware prominence. These were AP oblique lateral images as well as wrist flexion and extension images and the axial tangential views were used to confirm no screw prominence. Wrist motion was checked and was full and maintained and stable DRUJ. The wound was then irrigated and closed in layers. Hemostasis was achieved and the tourniquet was released prior to closing. Three 0 Vicryl was used deep and 4-0 Monocryl subcutaneous and 3 O nylon in the skin. Sterile dressings with a volar splint were applied. There no immediate complications. Surgical counts were correct. The patient tolerated the procedure well was taken recovery room. Complications: none Post-operative Condition: stable Disposition: PACU Plan for aftercare: May do finger and elbow range of motion. Keep splint in place 2 weeks until follow up in [facility] when sutures will be removed and a removable wrist place can be utilized to begin early range of motion after the 1st postoperative appointment.
== END 2024-08-03 17:28 | disposition home or self-care (01) ==
PROVIDERS: PCP Registered Nurse; Referring Provider Orthopaedic Surgery Foot and Ankle Surgery; Visit Provider Orthopaedic Surgery Foot and Ankle Surgery
PROC: (CPT 25608; principal; 2024-08-03 14:45)
DX: S52.571A Other intraarticular fracture of lower end of right radius, initial encounter for closed fracture (principal); W01.0XXA Fall on same level from slipping, tripping and stumbling without subsequent striking against object, initial encounter; Y92.009 Unspecified place in unspecified non-institutional (private) residence as the place of occurrence of the external cause
CPT/HCPCS: 25608; C1713; J0330; J0690; J1100; J1171; J2405; J2704; J3010

== ENCOUNTER 2024-09-21 12:07 | Day surgery (SDC) | payer OTHER, SELFPAY ==
[2023-05-22 12:18] VITALS: BMI 35.5
[2024-09-16 12:38] VITALS: BMI 37.1
[2024-09-21] VITALS (7 sets, daily range): BP systolic 90–128; BP diastolic 57–68; PULSE 78–90; RESP 12–20; TEMP 36.4–36.7; O2SAT 92–97; BMI 37.9
[2024-09-21] MEDS: LACTATED RINGERS 1,000 ML 42 ML IV (13:26)
--- NOTE | 2024-09-21 15:07 | PM.PREOP ---
Pre-operative Note Interval Note History & Physical reviewed/Exam performed by Physician: Yes Changes to H&P: No
[2024-09-21] MEDS: CEFAZOLIN 2 GM/100 ML PREMIX 100 ML IV (15:26)
--- NOTE | 2024-09-21 15:50 | SUR.OPER ---
Supine on padded OR bed, head on pillow, left arm secured on padded arm board at <90 degrees abduction, Right arm on arm table under control of surgeon. Legs uncrossed, safety belt at thigh, tape over blanket over lower legs. Gel pad under heels, pillow under knees.
[2024-09-21] MEDS: BUPIVACAINE 0.25% W/ EPI 30 ML VIAL 60 ML INJ (16:00)
[2024-09-21] MEDS: ACETAMINOPHEN IV 1,000 MG/100 ML VIAL 400 MG IV (16:49)
--- NOTE | 2024-09-21 18:35 | PM.OP.1 ---
Operative Date/Time/Diagnoses Date of procedure: 09/21/24 Time of procedure: 15:30 Pre-op diagnosis: Intra-articular distal radius fracture right malunion, failed orthopedic hardware, right carpal tunnel syndrome Post-op diagnosis: same Procedure & Clinicians Procedure: 1. Revision open reduction internal fixation intra-articular distal radius fracture CPT code 72828 intra-articular fracture with separate radial styloid and volar intra-articular fragments. 2. Removal of deep implant volar wrist plate through separate incision CPT code 49285 modifier 59 for separate incision 3. Carpal tunnel release CPT code 58690 right modifier 59 for separate incision 4. PIN--posterior interosseous nerve neurectomy 78929 Procedures performed with a modifier #58 for more extensive procedure this will be a staged revision ORIF with a later spanning plate removal. More extensive procedure requiring dorsal and volar approaches for malunion and required release of copious hard and soft callus and osteotomy. Same procedure(s) as scheduled: Yes Indications: The patient was a 73-year-old female that sustained an intra-articular distal radius fracture in July of 2024 she had a open reduction internal fixation through a volar approach. She was found in follow up to have loss of fixation loose and backed out screws and malunion. She was indicated for revision open reduction internal fixation placement of a spanning plate, removal of hardware and she also presented with carpal tunnel syndrome such was indicated for carpal tunnel release. The risks and benefits of the procedure have been discussed with the patient and given the opportunity to ask questions. The risks of surgery include but are not limited to infection, malunion, nonunion, persistence of pain, damage to nerves and blood vessels, posttraumatic arthritis, DVT, PE, coardiopulmonary complications and . The patient expressed a thorough understanding of the risks and benefits of surgery and has elected to proceed. Consent was signed. Surgeon: Yaa Anderson Click Yes if Unassisted: Yes Anesthesia Type: General, Peripheral nerve block and Local Operative Notes Findings: Malunion distal radius intra-articular fracture with shortening loss of fixation in the radial styloid and dorsal intra-articular fragments dorsal collapse and shortening of the articular surface, loose screws. Additionally carpal tunnel release findings were extremely thickened palmar fascia and transverse carpal ligament overlying the median nerve. Closure Type: primary Specimen(s): none sent Prosthetic devices, grafts, tissues, transplants, or devices: Arthrex dorsal spanning wrist plate with 2.4 and 3.5 screws locking and nonlocking Applied: other (splint) Estimated Blood Loss (mL): 35 Blood products transfused: none Tourniquet time (min): 101 Procedure in detail: Patient was seen in the preoperative area the site of surgery was marked informed consent confirmed this was the right wrist. The patient underwent a peripheral nerve block by the anesthesia team for postoperative pain control. The patient was then brought to the operating room positioned in the supine position. General anesthetic was administered. The right arm was placed on a hand table. A brachial tourniquet was placed. The right upper extremity was prepped and draped in standard sterile fashion a formal time-out procedure was performed confirming the patient's side and site of surgery administration of appropriate preoperative antibiotic. All were in agreement. Attention turned to the right wrist Esmarch was used for exsanguination and the tourniquet raised on the brachium to 250 mm of mercury. Procedure 1. Carpal tunnel release right Carpal tunnel release CPT code 26603 The planned skin incision was marked out along the patient's palm and this was the intersection of the longitudinal line between the ring and middle fingers and Hale's line. This was approximately 3 cm long. Skin incision was then made and dissection carried out with a scalpel through the skin subcutaneous tissue to the palmar fascia. The palmar fascia was then sharply divided. Retractors were then placed to allow deep dissection and further division of the palmar fascia. Once this was completed transverse carpal ligament was visualized. This was grossly thickened. This was divided longitudinally under direct visualization. The scissors were then utilized for full proximal and distal extent release of the transverse carpal ligament. This was protected [place] within the carpal tunnel deep. The release distally was completed to the fat and proximally into the distal forearm to the antebrachial fascia was released. The carpal canal were inspected. The median nerve was mildly flattened with slight hourglass shaped deformity. No other abnormalities were noted. No masses were noted. The wounds were irrigated with normal saline. The skin incision was closed with interrupted 4 0 Monocryl and then 4 0 nylon suture. Procedure 2. Removal of deep implant hardware right wrist Separate incision was made over the volar wrist through the previous scar this was opened and the FCR encountered this was retracted ulnarly and the floor of the FCR tendon sheath was opened. This was then reopened and dissection was taken back down to the level of the volar distal radius plate and screws. There was grossly loose radial styloid screw that was removed and additionally multiple loose and partially backed out locking and nonlocking screws in the articular block. These were removed. The shaft screws were well fixed. These were also removed. Then the plate was removed. The metaphyseal split was in continuity and at length volarly. There was loss of fixation shortening of the ulnar styloid fragment this was freed up including release of the brachioradialis and copious scar tissue. Procedure 3. Open reduction internal fixation, revision intra-articular distal radius malunion. Separate dorsal approach to the distal radius she was was then taken through a separate incision on the dorsal wrist. The dorsal spanning plate from the Arthrex set was laid over the top of the skin under fluoroscopic guidance and lined up best with the 3rd metacarpal centered in the radius so planned fixation was going to be 3rd metacarpal and radius for the spanning plate. This was drawn out on the skin. Then a 5 cm incision over the wrist centered on the site of the malunion was taken down through the skin and subcutaneous tissue the dorsal wrist capsule and extensor retinaculum was then opened. The extensor tendons were protected and the dorsal malunion was identified. During exposure the posterior interosseous nerve was exposed and a posterior interosseous nerve neurectomy was completed. A osteotome was used to mobilize the dorsal malunion which involve the dorsal 50% of the articular surface and metaphysis. Once this was freed up it was pushed distal to restore length and pinned and checked under intraoperative fluoroscopy in multiple planes. Finger traps with weight were also used to help regain length. There was some residual incongruity of the joint surface which was expected given the comminuted impacted fracture the once the overall length and alignment was obtained this was pinned and then the spanning plate was slid along the periosteum proximally and distally centered over the 3rd metacarpal and over the radius proximally. Separate incisions distally over the 3rd metacarpal were made and then the wrist incision was just extended distally to accommodate the proximal screws of the spanning plate. BB tacks were used proximally and distally to bring the plate to bone and a pin from the plate through the fracture was also used. Again this was checked on multiplanar intraoperative fluoroscopy and once appropriate nonlocking screws were placed distally and proximally this was a 2.4 screw distally in the oblong hole and a 3.5 screw proximally in the oblong hole then a 2.4 nonlocking screw was used through the plate over the distal radius metaphysis. Then locking screws were placed distally these were 2.4 locking screws and locking screws were placed proximally was were 3.5 locking screws. Final intraoperative fluoroscopy x-rays were taken to confirm length alignment and hardware placement. There was overall congregational of length and alignment with the appropriate hardware placement in the face of known comminuted intra-articular fracture and osteoporotic bone. At this point the tourniquet was released hemostasis was achieved and the wound was closed in layered fashion with 2-0 Vicryl 4-0 Monocryl and 3-0 nylon suture in the wrist incisions and 4-0 Monocryl and 4-0 nylon suture in the carpal tunnel and over the 3rd metacarpal incisions. Sterile dressing with Xeroform gauze Webril volar splint and an Héctor wrap were applied. Patient tolerated the procedure well. There were no immediate complications. Counts were correct. Complications: none Post-operative Condition: stable Disposition: PACU Plan for aftercare: 2 lb weight limit lifting. May wiggle fingers and thumb as tolerated. Follow up in [facility] Clinic in 2 weeks. We will plan for staged hardware removal in 8-12 weeks.
== END 2024-09-21 19:05 | disposition home or self-care (01) ==
PROVIDERS: PCP Registered Nurse; Referring Provider Orthopaedic Surgery Foot and Ankle Surgery; Visit Provider Orthopaedic Surgery Foot and Ankle Surgery
PROC: (CPT 25608; principal; 2024-09-21 14:15)
DX: T84.498A Other mechanical complication of other internal orthopedic devices, implants and grafts, initial encounter (principal); S52.571P Other intraarticular fracture of lower end of right radius, subsequent encounter for closed fracture with malunion; G56.01 Carpal tunnel syndrome, right upper limb; G47.33 Obstructive sleep apnea (adult) (pediatric); I10 Essential (primary) hypertension; K21.9 Gastro-esophageal reflux disease without esophagitis; E66.9 Obesity, unspecified; Z68.37 Body mass index [BMI] 37.0-37.9, adult; Z87.891 Personal history of nicotine dependence; Z98.1 Arthrodesis status; W01.198D Fall on same level from slipping, tripping and stumbling with subsequent striking against other object, subsequent encounter
CPT/HCPCS: 25608; 20680; 64721; 64772; 64450; C1713; J0131; J0690; J1100; J2405; J2704; J3010